=== PATIENT | female | born 1960 | race African-American/Black ===

== ENCOUNTER 2016-08-22 22:11 | Observation (INO) | payer OTHER ==
[~2016-08-22] VITALS: Ht 157.5 cm; Wt 43.0 kg
[~2016-08-22 22:11] MED LIST: ASPIRIN CHEWABL81 MG PO; ASPIRIN81 MG PO; AZO STANDARD PO; GABAPENTIN300 MG PO; HUMULIN 70/30 SC; K-TAB20 MEQ PO; KEFLEX500 MG PO; LANTUS SC; LEVEMIR FL100 UNIT/M SC; LEVEMIR1000 UNITS SC; LIPITOR20 MG PO; NEURONTIN300 MG OR; NOVOLIN 70/30 SC; NOVOLIN N1000 UNITS SC; NOVOLOG FLEXPEN SC; NOVOLOG100 IU/1 M SC; REGLAN10 MG PO; XANAX0.25 MG OR
[2016-08-22 23:04] LABS: HEMATOCRIT 35.3 % (37.0-47.0); HEMOGLOBIN 11.4 g/dl (12.0-16.0); IMMATURE GRANULOCYTES 0.2 % (0.0-1.0); MEAN CELL VOLUME 87.6 fL CALC (80.0-100.0); MEAN CORPUSCULAR HGB 28.3 pG CALC (26.0-32.0); MEAN CORPUSCULAR HGB CONC 32.3 g/L CALC (32.0-36.0); NEUT# 2.96 thou/uL (2.00-7.15); RED BLOOD COUNT 4.03 mill/uL (4.20-5.60); RED CELL DISTRI WIDTH 12.6 % (11.5-15.5)
[2016-08-22 23:05] LABS: URINE BILIRUBIN - DIPSTICK NEGATIVE (NEGATIVE); URINE BLOOD DIPSTICK NEGATIVE (NEGATIVE); URINE CLARITY CLEAR; URINE COLOR YELLOW; URINE GLUCOSE - DIPSTICK >=1000 mg/dL (NEGATIVE); URINE KETONE >=80 mg/dL (NEGATIVE); URINE LEUK ESTERASE NEGATIVE (NEGATIVE); URINE NITRITE - DIPSTICK NEGATIVE (Negative); URINE PH 5.5 (4.5-8.0); URINE PROTEIN - DIPSTICK NEGATIVE (NEG-TRACE); URINE SPECIFIC GRAVITY 1.015; URINE UROBILINOGEN - DIPSTICK 0.2 E.U./dL (0.2)
[2016-08-22 23:21] LABS: ALBUMIN 4.9 g/dL (3.2-5.0); ALKALINE PHOSPHATASE 159 u/l (38-126); BILIRUBIN, TOTAL 1.1 mg/dL (0.0-1.4); BUN 20 mg/dL (7-17); BUN/CREATININE RATIO 27 (12-20 (CALC)); CALCIUM 10.2 mg/dL (8.4-10.2); CHLORIDE 95 mmol/l (95-108); CREATININE 0.7 mg/dL (0.5-1.0); GFR > 60 ML/MIN (>=60 (CALC)); GFR FOR AFR.AMER. > 60 ML/MIN (>=60 (CALC)); SGOT/AST 62 u/l (14-36); SGPT/ALT 88 u/l (9-52); SODIUM 131 mmol/l (137-146); TOTAL PROTEIN 8.4 g/dL (6.3-8.2)
[2016-08-22 23:32] LABS: MYOGLOBIN 33 ng/mL (0 - 62)
[2016-08-22 23:37] LABS: ANION GAP 33 (6-22 (CALC)); POTASSIUM 5.6 mmol/l (3.5-5.1)
[2016-08-22 23:39] LABS: CARBON DIOXIDE 9 mmol/l (22-30)
[2016-08-22 23:40] LABS: GLUCOSE 493 mg/dL (65-105)
[2016-08-23 02:25] VITALS: BP 102/62
[2016-08-23 07:22] LABS: ANION GAP 12 (6-22 (CALC)); BUN 15 mg/dL (7-17); BUN/CREATININE RATIO 30 (12-20 (CALC)); CALCIUM 8.9 mg/dL (8.4-10.2); CARBON DIOXIDE 21 mmol/l (22-30); CHLORIDE 104 mmol/l (95-108); CREATININE 0.5 mg/dL (0.5-1.0); GFR > 60 ML/MIN (>=60 (CALC)); GFR FOR AFR.AMER. > 60 ML/MIN (>=60 (CALC)); GLUCOSE 73 mg/dL (65-105); POTASSIUM 4.1 mmol/l (3.5-5.1); SODIUM 134 mmol/l (137-146)
[2016-08-23 07:43] VITALS: BP 130/69
== END 2016-08-23 14:43 | disposition home or self-care (01) | DRG 639 ==
LOC: ENPENDDIS → ED 22:11 → ED-I 08-23 00:25 → ED 08-23 00:42 → MS2 08-23 00:43
PROVIDERS: Internal Medicine; ADMIT Internal Medicine; ATTEND Internal Medicine
DX: E13.10 Other specified diabetes mellitus with ketoacidosis without coma (principal); I10 Essential (primary) hypertension; E78.00 Pure hypercholesterolemia, unspecified; F32.9 Major depressive disorder, single episode, unspecified; M19.90 Unspecified osteoarthritis, unspecified site; Z79.4 Long term (current) use of insulin; Z91.11 Patient's noncompliance with dietary regimen
CPT/HCPCS: G0378

== ENCOUNTER 2017-01-11 11:32 | Emergency (ER) | payer OTHER ==
[~2017-01-11] VITALS: Ht 157.5 cm; Wt 42.0 kg
[2017-01-11] MEDS ORDERED: NAPROSYN500 MG PO (13:16)
[2017-01-11 13:30] VITALS: BP 113/64
== END 2017-01-11 13:53 | disposition home or self-care (01) | DRG 538 ==
LOC: ED 11:32
DX: S76.112A Strain of left quadriceps muscle, fascia and tendon, initial encounter (principal); I10 Essential (primary) hypertension; E11.9 Type 2 diabetes mellitus without complications; F32.9 Major depressive disorder, single episode, unspecified; J45.909 Unspecified asthma, uncomplicated; E78.00 Pure hypercholesterolemia, unspecified; X58.XXXA Exposure to other specified factors, initial encounter

== ENCOUNTER 2017-02-11 08:28 | Emergency (ER) | payer OTHER ==
[~2017-02-11] VITALS: Ht 157.5 cm; Wt 43.0 kg
[~2017-02-11 08:28] MED LIST changes: +NAPROSYN500 MG PO
[2017-02-11] MEDS ORDERED: OMEPRAZOLE10 MG PO (08:47)
[2017-02-11] MEDS ORDERED: REGLAN10 MG PO (08:55)
[2017-02-11] MEDS ORDERED: CYCLOBENZAPR5 MG PO (08:56)
[2017-02-11] MEDS ORDERED: LISINOPRIL2.5 MG PO (08:57)
[2017-02-11 09:41] LABS: HEMATOCRIT 30.4 % (37.0-47.0); HEMOGLOBIN 9.7 g/dl (12.0-16.0); IMMATURE GRANULOCYTES 0.4 % (0.0-1.0); MEAN CELL VOLUME 88.1 fL CALC (80.0-100.0); MEAN CORPUSCULAR HGB 28.1 pG CALC (26.0-32.0); MEAN CORPUSCULAR HGB CONC 31.9 g/L CALC (32.0-36.0); NEUT# 3.12 thou/uL (2.00-7.15); RED BLOOD COUNT 3.45 mill/uL (4.20-5.60); RED CELL DISTRI WIDTH 13.9 % (11.5-15.5)
[2017-02-11 09:55] LABS: ALKALINE PHOSPHATASE 139 u/l (38-126); ANION GAP 11 (6-22 (CALC)); BILIRUBIN, TOTAL 0.8 mg/dL (0.0-1.4); BUN 20 mg/dL (7-17); BUN/CREATININE RATIO 52 (12-20 (CALC)); CARBON DIOXIDE 31 mmol/l (22-30); CHLORIDE 98 mmol/l (95-108); CREATININE 0.4 mg/dL (0.5-1.0); GFR > 60 ML/MIN (>=60 (CALC)); GFR FOR AFR.AMER. > 60 ML/MIN (>=60 (CALC)); GLUCOSE 252 mg/dL (65-105); POTASSIUM 4.2 mmol/l (3.5-5.1); SGOT/AST 34 u/l (14-36); SGPT/ALT 27 u/l (9-52); SODIUM 135 mmol/l (137-146); TOTAL PROTEIN 7.8 g/dL (6.3-8.2)
[2017-02-11] MEDS ORDERED: ULTRAM50 M1 PO (15:41)
[2017-02-11 15:45] VITALS: BP 182/95
== END 2017-02-11 15:56 | disposition home or self-care (01) | DRG 556 ==
LOC: ED 08:28
PROVIDERS: Emergency Medicine
DX: M79.652 Pain in left thigh (principal); R22.42 Localized swelling, mass and lump, left lower limb; S90.422A Blister (nonthermal), left great toe, initial encounter

== ENCOUNTER 2017-02-26 08:39 | Inpatient (IN) | payer OTHER ==
[~2017-02-26] VITALS: Ht 157.5 cm; Wt 40.1 kg
[2017-02-26] VITALS (7 sets, daily range): BP systolic 105–151; BP diastolic 57–81
[~2017-02-26 08:39] MED LIST changes: +CYCLOBENZAPR5 MG PO; +LISINOPRIL2.5 MG PO; +OMEPRAZOLE10 MG PO; +ULTRAM50 M1 PO
[2017-02-26 09:56] LABS: HEMATOCRIT 36.4 % (37.0-47.0); HEMOGLOBIN 11.3 g/dl (12.0-16.0); IMMATURE GRANULOCYTES 0.5 % (0.0-1.0); MEAN CELL VOLUME 89.2 fL CALC (80.0-100.0); MEAN CORPUSCULAR HGB 27.7 pG CALC (26.0-32.0); NEUT# 4.9 thou/uL (2.00-7.15); RED BLOOD COUNT 4.08 mill/uL (4.20-5.60); RED CELL DISTRI WIDTH 13.5 % (11.5-15.5)
[2017-02-26 10:08] LABS: ALBUMIN 4.3 g/dL (3.2-5.0); ALKALINE PHOSPHATASE 147 u/l (38-126); ANION GAP 27 (6-22 (CALC)); BILIRUBIN, TOTAL 0.6 mg/dL (0.0-1.4); BUN 20 mg/dL (7-17); BUN/CREATININE RATIO 32 (12-20 (CALC)); CALCIUM 10.1 mg/dL (8.4-10.2); CARBON DIOXIDE 13 mmol/l (22-30); CHLORIDE 101 mmol/l (95-108); CREATININE 0.6 mg/dL (0.5-1.0); GFR > 60 ML/MIN (>=60 (CALC)); GFR FOR AFR.AMER. > 60 ML/MIN (>=60 (CALC)); GLUCOSE 357 mg/dL (65-105); POTASSIUM 4.6 mmol/l (3.5-5.1); SGOT/AST 17 u/l (14-36); SGPT/ALT 24 u/l (9-52); SODIUM 136 mmol/l (137-146); TOTAL PROTEIN 8.4 g/dL (6.3-8.2)
[2017-02-26 10:22] LABS: MYOGLOBIN 25 ng/mL (0 - 62)
[2017-02-26] MEDS ORDERED: DILTIAZEM120 MG PO (12:14)
[2017-02-26] MEDS ORDERED: LEVEMIR FL100 UNIT/M SC (12:16)
[2017-02-26] MEDS ORDERED: HUMALOG KW200 UNIT/M SC (12:18)
[2017-02-26] MEDS ORDERED: LISINOPRIL20 MG PO (12:19)
[2017-02-26] MEDS ORDERED: REGLAN10 MG PO (12:20)
[2017-02-26] MEDS ORDERED: MIRALAX3350 NF PO (12:22)
[2017-02-26 16:50] LABS: URINE BILIRUBIN - DIPSTICK NEGATIVE (NEGATIVE); URINE BLOOD DIPSTICK TRACE-INTACT (NEGATIVE); URINE COLOR YELLOW; URINE GLUCOSE - DIPSTICK >=1000 mg/dL (NEGATIVE); URINE KETONE >=80 mg/dL (NEGATIVE); URINE LEUK ESTERASE NEGATIVE (NEGATIVE); URINE NITRITE - DIPSTICK NEGATIVE (Negative); URINE PH 5.5 (4.5-8.0); URINE PROTEIN - DIPSTICK TRACE mg/dL (NEG-TRACE); URINE SPECIFIC GRAVITY 1.025; URINE UROBILINOGEN - DIPSTICK 0.2 E.U./dL (0.2)
[2017-02-26 16:53] LABS: URINE CLARITY CLEAR
[2017-02-26 16:55] LABS: BARBITURATES NEGATIVE (NEGATIVE); COCAINE NEGATIVE (NEGATIVE); METHADONE NEGATIVE (NEGATIVE); OXCYCODONE NEGATIVE (NEGATIVE); TETRAHYDROCANNABIONOL NEGATIVE (NEGATIVE); TRICYLIC ANTIDEPRESSANTS NEGATIVE (NEGATIVE)
[2017-02-26 16:59] LABS: ANION GAP 22 (6-22 (CALC)); BUN 17 mg/dL (7-17); BUN/CREATININE RATIO 37 (12-20 (CALC)); CARBON DIOXIDE 10 mmol/l (22-30); CREATININE 0.5 mg/dL (0.5-1.0); GFR > 60 ML/MIN (>=60 (CALC)); GFR FOR AFR.AMER. > 60 ML/MIN (>=60 (CALC)); GLUCOSE 200 mg/dL (65-105); POTASSIUM 4.4 mmol/l (3.5-5.1); SODIUM 139 mmol/l (137-146)
[2017-02-26 17:00] LABS: CHLORIDE 111 mmol/l (95-108)
[2017-02-26 21:01] LABS: POTASSIUM 5.1 mmol/l (3.5-5.1)
[2017-02-27] VITALS (26 sets, daily range): BP systolic 82–192; BP diastolic 40–96
[2017-02-27 00:11] LABS: POTASSIUM 3.9 mmol/l (3.5-5.1)
[2017-02-27 05:48] LABS: HEMATOCRIT 31.5 % (37.0-47.0); HEMOGLOBIN 10.1 g/dl (12.0-16.0); IMMATURE GRANULOCYTES 0.6 % (0.0-1.0); MEAN CELL VOLUME 86.8 fL CALC (80.0-100.0); MEAN CORPUSCULAR HGB 27.8 pG CALC (26.0-32.0); MEAN CORPUSCULAR HGB CONC 32.1 g/L CALC (32.0-36.0); NEUT# 6.07 thou/uL (2.00-7.15); RED BLOOD COUNT 3.63 mill/uL (4.20-5.60); RED CELL DISTRI WIDTH 13.5 % (11.5-15.5)
[2017-02-27 06:04] LABS: ANION GAP 14 (6-22 (CALC)); BUN 15 mg/dL (7-17); BUN/CREATININE RATIO 35 (12-20 (CALC)); CALCIUM 9.4 mg/dL (8.4-10.2); CARBON DIOXIDE 17 mmol/l (22-30); CHLORIDE 113 mmol/l (95-108); CREATININE 0.4 mg/dL (0.5-1.0); GFR > 60 ML/MIN (>=60 (CALC)); GFR FOR AFR.AMER. > 60 ML/MIN (>=60 (CALC)); GLUCOSE 149 mg/dL (65-105); POTASSIUM 4.1 mmol/l (3.5-5.1); SODIUM 139 mmol/l (137-146)
[2017-02-27 06:06] LABS: CHOLESTEROL HDL RATIO 2.7 (<4.4 (CALC))
[2017-02-28] VITALS (20 sets, daily range): BP systolic 121–189; BP diastolic 56–99
[2017-02-28 05:29] LABS: ANION GAP 19 (6-22 (CALC)); BUN 13 mg/dL (7-17); BUN/CREATININE RATIO 34 (12-20 (CALC)); CALCIUM 9.6 mg/dL (8.4-10.2); CARBON DIOXIDE 18 mmol/l (22-30); CHLORIDE 111 mmol/l (95-108); CREATININE 0.4 mg/dL (0.5-1.0); GFR > 60 ML/MIN (>=60 (CALC)); GFR FOR AFR.AMER. > 60 ML/MIN (>=60 (CALC)); GLUCOSE 184 mg/dL (65-105); POTASSIUM 3.6 mmol/l (3.5-5.1); SODIUM 144 mmol/l (137-146)
[2017-02-28 05:33] LABS: HEMATOCRIT 29.3 % (37.0-47.0); HEMOGLOBIN 9.5 g/dl (12.0-16.0); MEAN CELL VOLUME 84.7 fL CALC (80.0-100.0); MEAN CORPUSCULAR HGB 27.5 pG CALC (26.0-32.0); MEAN CORPUSCULAR HGB CONC 32.4 g/L CALC (32.0-36.0); RED BLOOD COUNT 3.46 mill/uL (4.20-5.60); RED CELL DISTRI WIDTH 13.5 % (11.5-15.5)
[2017-03-01 04:45] VITALS: BP 156/82
[2017-03-01 05:55] LABS: HEMATOCRIT 27.7 % (37.0-47.0); HEMOGLOBIN 9.3 g/dl (12.0-16.0); MEAN CELL VOLUME 83.2 fL CALC (80.0-100.0); MEAN CORPUSCULAR HGB 27.9 pG CALC (26.0-32.0); RED BLOOD COUNT 3.33 mill/uL (4.20-5.60)
[2017-03-01 05:56] LABS: MEAN CORPUSCULAR HGB CONC 33.6 g/L CALC (32.0-36.0); RED CELL DISTRI WIDTH 13.2 % (11.5-15.5)
[2017-03-01 06:07] LABS: ANION GAP 12 (6-22 (CALC)); BUN 11 mg/dL (7-17); BUN/CREATININE RATIO 28 (12-20 (CALC)); CARBON DIOXIDE 22 mmol/l (22-30); CHLORIDE 96 mmol/l (95-108); CREATININE 0.4 mg/dL (0.5-1.0); GFR > 60 ML/MIN (>=60 (CALC)); GFR FOR AFR.AMER. > 60 ML/MIN (>=60 (CALC)); GLUCOSE 209 mg/dL (65-105); MAGNESIUM 1.6 mg/dL (1.6-2.3); POTASSIUM 3.1 mmol/l (3.5-5.1)
[2017-03-01 06:20] LABS: SODIUM 127 mmol/l (137-146)
[2017-03-01 07:51] VITALS: BP 152/83
[2017-03-01 11:20] VITALS: BP 100/63
[2017-03-01 12:31] LABS: ALBUMIN 2.8 g/dL (3.2-5.0); ALKALINE PHOSPHATASE 95 u/l (38-126); ANION GAP 13 (6-22 (CALC)); BILIRUBIN, TOTAL 0.7 mg/dL (0.0-1.4); BUN 8 mg/dL (7-17); BUN/CREATININE RATIO 23 (12-20 (CALC)); CARBON DIOXIDE 24 mmol/l (22-30); CHLORIDE 99 mmol/l (95-108); CREATININE 0.4 mg/dL (0.5-1.0); GFR > 60 ML/MIN (>=60 (CALC)); GFR FOR AFR.AMER. > 60 ML/MIN (>=60 (CALC)); GLUCOSE 210 mg/dL (65-105); POTASSIUM 2.9 mmol/l (3.5-5.1); SGOT/AST 23 u/l (14-36); SGPT/ALT 24 u/l (9-52); SODIUM 132 mmol/l (137-146); TOTAL PROTEIN 6.1 g/dL (6.3-8.2)
[2017-03-01 15:50] VITALS: BP 141/71
[2017-03-01 19:25] VITALS: BP 127/62
[2017-03-01 23:55] VITALS: BP 128/67
[2017-03-02 04:24] VITALS: BP 154/88
[2017-03-02 08:13] VITALS: BP 158/91
[2017-03-02 10:50] LABS: ANION GAP 14 (6-22 (CALC)); BUN 5 mg/dL (7-17); BUN/CREATININE RATIO 14 (12-20 (CALC)); CALCIUM 9.2 mg/dL (8.4-10.2); CARBON DIOXIDE 25 mmol/l (22-30); CHLORIDE 94 mmol/l (95-108); CREATININE 0.4 mg/dL (0.5-1.0); GFR > 60 ML/MIN (>=60 (CALC)); GFR FOR AFR.AMER. > 60 ML/MIN (>=60 (CALC)); GLUCOSE 211 mg/dL (65-105); MAGNESIUM 1.7 mg/dL (1.6-2.3); POTASSIUM 3.2 mmol/l (3.5-5.1); SODIUM 130 mmol/l (137-146)
[2017-03-02 12:40] VITALS: BP 125/55
== END 2017-03-02 14:57 | disposition home or self-care (01) | DRG 638 ==
LOC: ED 08:39 → ED-I 16:22 → ED 17:34 → ICU 17:35 → MS2 02-28 16:01
PROVIDERS: Emergency Medicine; Internal Medicine; Nurse Practitioner Family; ADMIT Internal Medicine; ATTEND Internal Medicine
DX: E11.10 Type 2 diabetes mellitus with ketoacidosis without coma (principal); Z68.1 Body mass index [BMI] 19.9 or less, adult; R64 Cachexia; E87.8 Other disorders of electrolyte and fluid balance, not elsewhere classified; K56.7 Ileus, unspecified; K31.84 Gastroparesis; I10 Essential (primary) hypertension; E11.43 Type 2 diabetes mellitus with diabetic autonomic (poly)neuropathy; K59.00 Constipation, unspecified; Z79.4 Long term (current) use of insulin

== ENCOUNTER 2017-04-12 11:32 | Inpatient (IN) | payer OTHER ==
[~2017-04-12] VITALS: Ht 157.5 cm; Wt 29.5 kg
[2017-04-12] VITALS (8 sets, daily range): BP systolic 107–133; BP diastolic 53–67
[~2017-04-12 11:32] MED LIST changes: +DILTIAZEM120 MG PO; +HUMALOG KW200 UNIT/M SC; +LISINOPRIL20 MG PO; +MIRALAX3350 NF PO
[2017-04-12 12:25] LABS: HEMATOCRIT 40.2 % (37.0-47.0); HEMOGLOBIN 11.8 g/dl (12.0-16.0); IMMATURE GRANULOCYTES 2.4 % (0.0-1.0); MEAN CELL VOLUME 95.7 fL CALC (80.0-100.0); MEAN CORPUSCULAR HGB 28.1 pG CALC (26.0-32.0); MEAN CORPUSCULAR HGB CONC 29.4 g/L CALC (32.0-36.0); NEUT# 7.37 thou/uL (2.00-7.15); RED BLOOD COUNT 4.2 mill/uL (4.20-5.60); RED CELL DISTRI WIDTH 14.7 % (11.5-15.5)
[2017-04-12 12:33] LABS: URINE BILIRUBIN - DIPSTICK NEGATIVE (NEGATIVE); URINE BLOOD DIPSTICK TRACE-INTACT (NEGATIVE); URINE COLOR YELLOW; URINE GLUCOSE - DIPSTICK >=1000 mg/dL (NEGATIVE); URINE KETONE >=80 mg/dL (NEGATIVE); URINE LEUK ESTERASE NEGATIVE (NEGATIVE); URINE NITRITE - DIPSTICK NEGATIVE (Negative); URINE PH 5.5 (4.5-8.0); URINE PROTEIN - DIPSTICK TRACE mg/dL (NEG-TRACE); URINE SPECIFIC GRAVITY 1.025; URINE UROBILINOGEN - DIPSTICK 0.2 E.U./dL (0.2)
[2017-04-12 12:36] LABS: URINE CLARITY CLEAR
[2017-04-12 12:40] LABS: ALBUMIN 4.6 g/dL (3.2-5.0); ALKALINE PHOSPHATASE 178 u/l (38-126); BILIRUBIN, TOTAL 0.5 mg/dL (0.0-1.4); BUN 23 mg/dL (7-17); BUN/CREATININE RATIO 33 (12-20 (CALC)); CALCIUM 9.9 mg/dL (8.4-10.2); CHLORIDE 108 mmol/l (95-108); CREATININE 0.7 mg/dL (0.5-1.0); GFR > 60 ML/MIN (>=60 (CALC)); GFR FOR AFR.AMER. > 60 ML/MIN (>=60 (CALC)); SGOT/AST 55 u/l (14-36); SGPT/ALT 89 u/l (9-52); SODIUM 139 mmol/l (137-146)
[2017-04-12 12:43] LABS: ANION GAP 31 (6-22 (CALC)); POTASSIUM 5.4 mmol/l (3.5-5.1)
[2017-04-12 12:44] LABS: CARBON DIOXIDE 5 mmol/l (22-30); GLUCOSE 572 mg/dL (65-105)
[2017-04-12 12:54] LABS: MYOGLOBIN 24 ng/mL (0 - 62)
[2017-04-12 12:55] LABS: INFLUENZA A NONE DETECTED (NONE DETECT); INFLUENZA B NONE DETECTED (NONE DETECT)
[2017-04-12 14:47] LABS: BUN 23 mg/dL (7-17); BUN/CREATININE RATIO 35 (12-20 (CALC)); CALCIUM 8.8 mg/dL (8.4-10.2); CHLORIDE 114 mmol/l (95-108); CREATININE 0.7 mg/dL (0.5-1.0); GFR > 60 ML/MIN (>=60 (CALC)); GFR FOR AFR.AMER. > 60 ML/MIN (>=60 (CALC)); GLUCOSE 447 mg/dL (65-105); POTASSIUM 4.3 mmol/l (3.5-5.1); SODIUM 142 mmol/l (137-146)
[2017-04-12 14:53] LABS: ANION GAP 27 (6-22 (CALC)); CARBON DIOXIDE < 5 mmol/l (22-30)
[2017-04-12 16:33] LABS: BUN 21 mg/dL (7-17); BUN/CREATININE RATIO 32 (12-20 (CALC)); CALCIUM 8.5 mg/dL (8.4-10.2); CHLORIDE 117 mmol/l (95-108); CREATININE 0.7 mg/dL (0.5-1.0); GFR > 60 ML/MIN (>=60 (CALC)); GFR FOR AFR.AMER. > 60 ML/MIN (>=60 (CALC)); GLUCOSE 284 mg/dL (65-105); POTASSIUM 3.8 mmol/l (3.5-5.1); SODIUM 145 mmol/l (137-146)
[2017-04-12 16:36] LABS: ANION GAP 27 (6-22 (CALC))
[2017-04-12 16:37] LABS: CARBON DIOXIDE < 5 mmol/l (22-30)
[2017-04-12 18:44] LABS: BUN 18 mg/dL (7-17); BUN/CREATININE RATIO 30 (12-20 (CALC)); CALCIUM 8.1 mg/dL (8.4-10.2); CHLORIDE 121 mmol/l (95-108); CREATININE 0.6 mg/dL (0.5-1.0); GFR > 60 ML/MIN (>=60 (CALC)); GFR FOR AFR.AMER. > 60 ML/MIN (>=60 (CALC)); GLUCOSE 174 mg/dL (65-105); SODIUM 144 mmol/l (137-146)
[2017-04-12 18:54] LABS: ANION GAP 22 (6-22 (CALC)); CARBON DIOXIDE < 5 mmol/l (22-30)
[2017-04-12 20:46] LABS: ANION GAP 18 (6-22 (CALC)); BUN 16 mg/dL (7-17); BUN/CREATININE RATIO 31 (12-20 (CALC)); CALCIUM 7.8 mg/dL (8.4-10.2); CARBON DIOXIDE 10 mmol/l (22-30); CHLORIDE 122 mmol/l (95-108); CREATININE 0.5 mg/dL (0.5-1.0); GFR > 60 ML/MIN (>=60 (CALC)); GFR FOR AFR.AMER. > 60 ML/MIN (>=60 (CALC)); GLUCOSE 110 mg/dL (65-105); POTASSIUM 3.9 mmol/l (3.5-5.1); SODIUM 146 mmol/l (137-146)
[2017-04-13] VITALS (16 sets, daily range): BP systolic 95–141; BP diastolic 51–76
[2017-04-13 08:28] LABS: HEMATOCRIT 30.5 % (37.0-47.0); HEMOGLOBIN 10.1 g/dl (12.0-16.0); IMMATURE GRANULOCYTES 0.3 % (0.0-1.0); MEAN CELL VOLUME 86.4 fL CALC (80.0-100.0); MEAN CORPUSCULAR HGB 28.6 pG CALC (26.0-32.0); MEAN CORPUSCULAR HGB CONC 33.1 g/L CALC (32.0-36.0); NEUT# 7.51 thou/uL (2.00-7.15); RED BLOOD COUNT 3.53 mill/uL (4.20-5.60); RED CELL DISTRI WIDTH 14.6 % (11.5-15.5)
[2017-04-13 08:41] LABS: ANION GAP 10 (6-22 (CALC)); BUN 11 mg/dL (7-17); BUN/CREATININE RATIO 26 (12-20 (CALC)); CALCIUM 7.8 mg/dL (8.4-10.2); CARBON DIOXIDE 19 mmol/l (22-30); CHLORIDE 121 mmol/l (95-108); CREATININE 0.4 mg/dL (0.5-1.0); GFR > 60 ML/MIN (>=60 (CALC)); GFR FOR AFR.AMER. > 60 ML/MIN (>=60 (CALC)); GLUCOSE 180 mg/dL (65-105); POTASSIUM 3.5 mmol/l (3.5-5.1); SODIUM 146 mmol/l (137-146)
[2017-04-13 18:59] LABS: ANION GAP 12 (6-22 (CALC)); BUN 10 mg/dL (7-17); BUN/CREATININE RATIO 23 (12-20 (CALC)); CALCIUM 8.8 mg/dL (8.4-10.2); CARBON DIOXIDE 19 mmol/l (22-30); CHLORIDE 118 mmol/l (95-108); CREATININE 0.4 mg/dL (0.5-1.0); GFR > 60 ML/MIN (>=60 (CALC)); GFR FOR AFR.AMER. > 60 ML/MIN (>=60 (CALC)); GLUCOSE 110 mg/dL (65-105); POTASSIUM 3.3 mmol/l (3.5-5.1); SODIUM 145 mmol/l (137-146)
[2017-04-14] VITALS: BP 168/83
[2017-04-14 04:00] VITALS: BP 164/84
[2017-04-14 08:25] VITALS: BP 167/85
[2017-04-14 08:38] VITALS: BP 169/59
[2017-04-14 09:14] VITALS: BP 167/85
[2017-04-14] MEDS ORDERED: ZOFRAN ODT4 MG PO (10:05)
[2017-04-14] MEDS ORDERED: ZOFRAN4 MG/TAB PO (23:46)
[2017-04-14] MEDS ORDERED: MICRO-K10 MEQ PO (23:46)
[2017-04-14] MEDS ORDERED: KEFLEX250 MG PO (23:46)
== END 2017-04-14 11:18 | disposition home or self-care (01) | DRG 639 ==
LOC: ED 11:32 → ED-I 13:20 → ED 13:43 → ICU 13:44 → MS2 04-13 13:33
PROVIDERS: Emergency Medicine; ADMIT Internal Medicine; ATTEND Internal Medicine
DX: E11.10 Type 2 diabetes mellitus with ketoacidosis without coma (principal); F32.9 Major depressive disorder, single episode, unspecified; I10 Essential (primary) hypertension; M19.90 Unspecified osteoarthritis, unspecified site; Z79.4 Long term (current) use of insulin; Z91.14 Patient's other noncompliance with medication regimen
CPT/HCPCS: J1650; S0164

== ENCOUNTER 2017-04-14 18:53 | Emergency (ER) | payer OTHER ==
[~2017-04-14] VITALS: Ht 157.5 cm; Wt 40.5 kg
[~2017-04-14 18:53] MED LIST changes: +ZOFRAN ODT4 MG PO
[2017-04-14 20:29] LABS: URINE BILIRUBIN - DIPSTICK NEGATIVE (NEGATIVE); URINE BLOOD DIPSTICK TRACE-INTACT (NEGATIVE); URINE COLOR YELLOW; URINE GLUCOSE - DIPSTICK >=1000 mg/dL (NEGATIVE); URINE KETONE >=80 mg/dL (NEGATIVE); URINE LEUK ESTERASE NEGATIVE (NEGATIVE); URINE PH 5.5 (4.5-8.0); URINE PROTEIN - DIPSTICK NEGATIVE (NEG-TRACE); URINE UROBILINOGEN - DIPSTICK 0.2 E.U./dL (0.2)
[2017-04-14 20:34] LABS: URINE CLARITY CLOUDY; URINE NITRITE - DIPSTICK POSITIVE (Negative)
[2017-04-14 20:36] LABS: URINE SQUAMOUS EPITHELIAL CELL FEW EPI/hpf (0-FEW); URINE WBC 0-2 WBC/hpf (0-5); URINE YEAST MANY hpf
[2017-04-14 21:32] LABS: HEMATOCRIT 36.9 % (37.0-47.0); HEMOGLOBIN 12.1 g/dl (12.0-16.0); IMMATURE GRANULOCYTES 0.2 % (0.0-1.0); MEAN CORPUSCULAR HGB 27.9 pG CALC (26.0-32.0); MEAN CORPUSCULAR HGB CONC 32.8 g/L CALC (32.0-36.0); NEUT# 4.22 thou/uL (2.00-7.15); RED BLOOD COUNT 4.34 mill/uL (4.20-5.60); RED CELL DISTRI WIDTH 14.6 % (11.5-15.5)
[2017-04-14 21:51] LABS: ALBUMIN 3.9 g/dL (3.2-5.0); ALKALINE PHOSPHATASE 131 u/l (38-126); ANION GAP 20 (6-22 (CALC)); BILIRUBIN, TOTAL 1.3 mg/dL (0.0-1.4); BUN 10 mg/dL (7-17); BUN/CREATININE RATIO 21 (12-20 (CALC)); CALCIUM 8.8 mg/dL (8.4-10.2); CARBON DIOXIDE 19 mmol/l (22-30); CHLORIDE 102 mmol/l (95-108); CREATININE 0.5 mg/dL (0.5-1.0); GFR > 60 ML/MIN (>=60 (CALC)); GFR FOR AFR.AMER. > 60 ML/MIN (>=60 (CALC)); GLUCOSE 279 mg/dL (65-105); POTASSIUM 2.9 mmol/l (3.5-5.1); SGOT/AST 38 u/l (14-36); SGPT/ALT 58 u/l (9-52); SODIUM 138 mmol/l (137-146); TOTAL PROTEIN 6.9 g/dL (6.3-8.2)
[2017-04-14] MEDS ORDERED: MICRO-K10 MEQ PO (23:46)
[2017-04-14] MEDS ORDERED: ZOFRAN4 MG/TAB PO (23:46)
[2017-04-14] MEDS ORDERED: KEFLEX250 MG PO (23:46)
[2017-04-15 00:36] VITALS: BP 154/87
== END 2017-04-15 00:37 | disposition home or self-care (01) | DRG 392 ==
LOC: ED 18:53
PROVIDERS: Emergency Medicine
DX: R11.0 Nausea (principal); E11.9 Type 2 diabetes mellitus without complications; N39.0 Urinary tract infection, site not specified; E87.6 Hypokalemia; R10.9 Unspecified abdominal pain; F32.9 Major depressive disorder, single episode, unspecified; M19.90 Unspecified osteoarthritis, unspecified site; I10 Essential (primary) hypertension; Z79.4 Long term (current) use of insulin; Z91.14 Patient's other noncompliance with medication regimen

== ENCOUNTER 2017-04-18 12:27 | Inpatient (IN) | payer OTHER ==
[2017-04-18] VITALS (10 sets, daily range): BP systolic 80–145; BP diastolic 47–81
[~2017-04-18] VITALS: Ht 157.5 cm; Wt 42.5 kg
[~2017-04-18 12:27] MED LIST changes: +KEFLEX250 MG PO; +MICRO-K10 MEQ PO; +ZOFRAN4 MG/TAB PO
[2017-04-18 13:19] LABS: HEMATOCRIT 34.8 % (37.0-47.0); HEMOGLOBIN 10.9 g/dl (12.0-16.0); IMMATURE GRANULOCYTES 0.9 % (0.0-1.0); MEAN CELL VOLUME 89.9 fL CALC (80.0-100.0); MEAN CORPUSCULAR HGB 28.2 pG CALC (26.0-32.0); MEAN CORPUSCULAR HGB CONC 31.3 g/L CALC (32.0-36.0); NEUT# 7.75 thou/uL (2.00-7.15); RED BLOOD COUNT 3.87 mill/uL (4.20-5.60); RED CELL DISTRI WIDTH 14.6 % (11.5-15.5)
[2017-04-18 13:21] LABS: ALBUMIN 3.5 g/dL (3.2-5.0); ALKALINE PHOSPHATASE 102 u/l (38-126); BILIRUBIN, TOTAL 1.2 mg/dL (0.0-1.4); BUN 15 mg/dL (7-17); BUN/CREATININE RATIO 19 (12-20 (CALC)); CHLORIDE 105 mmol/l (95-108); CREATININE 0.8 mg/dL (0.5-1.0); GFR > 60 ML/MIN (>=60 (CALC)); GFR FOR AFR.AMER. > 60 ML/MIN (>=60 (CALC)); GLUCOSE 388 mg/dL (65-105); SGOT/AST 54 u/l (14-36); SGPT/ALT 32 u/l (9-52); SODIUM 131 mmol/l (137-146); TOTAL PROTEIN 6.2 g/dL (6.3-8.2)
[2017-04-18 13:31] LABS: ANION GAP 27 (6-22 (CALC)); CARBON DIOXIDE < 5 mmol/l (22-30); POTASSIUM 6.2 mmol/l (3.5-5.1)
[2017-04-18 13:32] LABS: MYOGLOBIN 31 ng/mL (0 - 62)
[2017-04-18 16:19] LABS: POTASSIUM 3.8 mmol/l (3.5-5.1)
[2017-04-18] MEDS ORDERED: LEVEMIR100 UNIT/M SC (16:29)
[2017-04-18] MEDS ORDERED: NOVOLOG100 UNIT/M (16:30)
[2017-04-18] MEDS ORDERED: LISINOPRIL20 MG PO (16:30)
[2017-04-18] MEDS ORDERED: POTASSIUM CHLO10 MEQ PO (16:31)
[2017-04-18] MEDS ORDERED: ASPIRIN81 MG PO (16:31)
[2017-04-18] MEDS ORDERED: PRILOSEC20 MG PO (16:33)
[2017-04-18 20:16] LABS: POTASSIUM 3.7 mmol/l (3.5-5.1)
[2017-04-18 23:34] LABS: POTASSIUM 3.1 mmol/l (3.5-5.1)
[2017-04-19] VITALS (18 sets, daily range): BP systolic 99–187; BP diastolic 52–95
[2017-04-19 04:46] LABS: HEMATOCRIT 27.1 % (37.0-47.0); HEMOGLOBIN 9.4 g/dl (12.0-16.0); MEAN CELL VOLUME 82.4 fL CALC (80.0-100.0); MEAN CORPUSCULAR HGB 28.6 pG CALC (26.0-32.0); MEAN CORPUSCULAR HGB CONC 34.7 g/L CALC (32.0-36.0); RED BLOOD COUNT 3.29 mill/uL (4.20-5.60); RED CELL DISTRI WIDTH 13.6 % (11.5-15.5)
[2017-04-19 05:07] LABS: ANION GAP 16 (6-22 (CALC)); BUN 14 mg/dL (7-17); BUN/CREATININE RATIO 28 (12-20 (CALC)); CALCIUM 8.5 mg/dL (8.4-10.2); CARBON DIOXIDE 17 mmol/l (22-30); CHLORIDE 112 mmol/l (95-108); CREATININE 0.5 mg/dL (0.5-1.0); GFR > 60 ML/MIN (>=60 (CALC)); GFR FOR AFR.AMER. > 60 ML/MIN (>=60 (CALC)); GLUCOSE 127 mg/dL (65-105); POTASSIUM 3.6 mmol/l (3.5-5.1); SODIUM 141 mmol/l (137-146)
[2017-04-20] VITALS: BP 102/56
[2017-04-20 04:45] VITALS: BP 119/73
[2017-04-20 05:48] LABS: BARBITURATES NEGATIVE (NEGATIVE); COCAINE NEGATIVE (NEGATIVE); METHADONE NEGATIVE (NEGATIVE); OXCYCODONE NEGATIVE (NEGATIVE); TETRAHYDROCANNABIONOL NEGATIVE (NEGATIVE); TRICYLIC ANTIDEPRESSANTS NEGATIVE (NEGATIVE)
[2017-04-20 08:40] VITALS: BP 143/80
[2017-04-20 10:14] LABS: HEMATOCRIT 29.8 % (37.0-47.0); IMMATURE GRANULOCYTES 0.2 % (0.0-1.0); MEAN CELL VOLUME 83.7 fL CALC (80.0-100.0); MEAN CORPUSCULAR HGB 28.1 pG CALC (26.0-32.0); MEAN CORPUSCULAR HGB CONC 33.6 g/L CALC (32.0-36.0); NEUT# 2.7 thou/uL (2.00-7.15); RED BLOOD COUNT 3.56 mill/uL (4.20-5.60); RED CELL DISTRI WIDTH 14.3 % (11.5-15.5)
[2017-04-20 10:37] LABS: ANION GAP 9 (6-22 (CALC)); BUN 13 mg/dL (7-17); BUN/CREATININE RATIO 31 (12-20 (CALC)); CARBON DIOXIDE 23 mmol/l (22-30); CHLORIDE 104 mmol/l (95-108); CREATININE 0.4 mg/dL (0.5-1.0); GFR > 60 ML/MIN (>=60 (CALC)); GFR FOR AFR.AMER. > 60 ML/MIN (>=60 (CALC)); GLUCOSE 215 mg/dL (65-105); POTASSIUM 3.7 mmol/l (3.5-5.1); SODIUM 132 mmol/l (137-146)
== END 2017-04-20 14:50 | disposition home or self-care (01) | DRG 638 ==
LOC: ED 12:27 → ED-I 13:14 → ED 14:37 → ICU 14:38 → MS2 04-19 18:35
PROVIDERS: Emergency Medicine; Internal Medicine; ADMIT Internal Medicine; ATTEND Internal Medicine
DX: E11.10 Type 2 diabetes mellitus with ketoacidosis without coma (principal); E87.4 Mixed disorder of acid-base balance; E78.5 Hyperlipidemia, unspecified; E86.0 Dehydration; I10 Essential (primary) hypertension; Z91.14 Patient's other noncompliance with medication regimen; M19.90 Unspecified osteoarthritis, unspecified site; F99 Mental disorder, not otherwise specified; E11.40 Type 2 diabetes mellitus with diabetic neuropathy, unspecified; Z79.4 Long term (current) use of insulin

== ENCOUNTER 2017-10-15 11:02 | Inpatient (IN) | payer OTHER ==
[2017-10-15] VITALS (12 sets, daily range): BP systolic 92–131; BP diastolic 53–64
[~2017-10-15] VITALS: Ht 157.5 cm; Wt 41.0 kg
[~2017-10-15 11:02] MED LIST changes: +LEVEMIR100 UNIT/M SC; +NOVOLOG100 UNIT/M; +POTASSIUM CHLO10 MEQ PO; +PRILOSEC20 MG PO
[2017-10-15 11:33] LABS: HEMATOCRIT 39.8 % (37.0-47.0); HEMOGLOBIN 12.5 g/dl (12.0-16.0); IMMATURE GRANULOCYTES 0.3 % (0.0-1.0); MEAN CELL VOLUME 94.3 fL CALC (80.0-100.0); MEAN CORPUSCULAR HGB 29.6 pG CALC (26.0-32.0); MEAN CORPUSCULAR HGB CONC 31.4 g/L CALC (32.0-36.0); NEUT# 4.34 thou/uL (2.00-7.15); RED BLOOD COUNT 4.22 mill/uL (4.20-5.60); RED CELL DISTRI WIDTH 13.1 % (11.5-15.5)
[2017-10-15 11:52] LABS: BILIRUBIN, TOTAL 0.5 mg/dL (0.0-1.4); BUN 21 mg/dL (7-17); BUN/CREATININE RATIO 32 (12-20 (CALC)); CHLORIDE 99 mmol/l (95-108); CREATININE 0.7 mg/dL (0.5-1.0); GFR > 60 ML/MIN (>=60 (CALC)); GFR FOR AFR.AMER. > 60 ML/MIN (>=60 (CALC)); SGPT/ALT 114 u/l (9-52); SODIUM 130 mmol/l (137-146)
[2017-10-15 11:59] LABS: POTASSIUM 5.3 mmol/l (3.5-5.1)
[2017-10-15 12:00] LABS: ALBUMIN 4.7 g/dL (3.2-5.0); ANION GAP 31 (6-22 (CALC)); CARBON DIOXIDE < 5 mmol/l (22-30); ETHYL ALCOHOL 0 mg/dl (0-30); SGOT/AST 136 u/l (14-36); TOTAL PROTEIN 8.6 g/dL (6.3-8.2)
[2017-10-15 12:01] LABS: ALKALINE PHOSPHATASE 274 u/l (38-126)
[2017-10-15 12:23] LABS: URINE BILIRUBIN - DIPSTICK NEGATIVE (NEGATIVE); URINE BLOOD DIPSTICK TRACE-LYSED (NEGATIVE); URINE COLOR YELLOW; URINE GLUCOSE - DIPSTICK >=1000 mg/dL (NEGATIVE); URINE KETONE >=80 mg/dL (NEGATIVE); URINE LEUK ESTERASE NEGATIVE (NEGATIVE); URINE NITRITE - DIPSTICK NEGATIVE (Negative); URINE PH 5.5 (4.5-8.0); URINE PROTEIN - DIPSTICK TRACE mg/dL (NEG-TRACE); URINE UROBILINOGEN - DIPSTICK 0.2 E.U./dL (0.2)
[2017-10-15 12:29] LABS: URINE CLARITY SL CLOUDY
[2017-10-15 12:31] LABS: BARBITURATES NEGATIVE (NEGATIVE); COCAINE NEGATIVE (NEGATIVE); METHADONE NEGATIVE (NEGATIVE); OXCYCODONE NEGATIVE (NEGATIVE); TETRAHYDROCANNABIONOL NEGATIVE (NEGATIVE); TRICYLIC ANTIDEPRESSANTS NEGATIVE (NEGATIVE)
[2017-10-15 12:36] LABS: INTERNATIONAL NORMALIZED RATIO 0.9 RATIO (0.7-1.3)
[2017-10-15 17:53] LABS: BUN 19 mg/dL (7-17); BUN/CREATININE RATIO 42 (12-20 (CALC)); CHLORIDE 110 mmol/l (95-108); CREATININE 0.4 mg/dL (0.5-1.0); GFR > 60 ML/MIN (>=60 (CALC)); GFR FOR AFR.AMER. > 60 ML/MIN (>=60 (CALC)); SODIUM 136 mmol/l (137-146)
[2017-10-15 17:56] LABS: ANION GAP 16 (6-22 (CALC)); CARBON DIOXIDE 14 mmol/l (22-30); POTASSIUM 4.1 mmol/l (3.5-5.1)
[2017-10-15 21:41] LABS: ANION GAP 13 (6-22 (CALC)); BUN 17 mg/dL (7-17); BUN/CREATININE RATIO 34 (12-20 (CALC)); CARBON DIOXIDE 16 mmol/l (22-30); CHLORIDE 110 mmol/l (95-108); CREATININE 0.5 mg/dL (0.5-1.0); GFR > 60 ML/MIN (>=60 (CALC)); GFR FOR AFR.AMER. > 60 ML/MIN (>=60 (CALC)); POTASSIUM 4.2 mmol/l (3.5-5.1); SODIUM 135 mmol/l (137-146)
[2017-10-16] VITALS (13 sets, daily range): BP systolic 96–176; BP diastolic 52–94
[2017-10-16 05:37] LABS: BUN 17 mg/dL (7-17); CARBON DIOXIDE 18 mmol/l (22-30); CHLORIDE 110 mmol/l (95-108); CREATININE 0.4 mg/dL (0.5-1.0); GFR > 60 ML/MIN (>=60 (CALC)); GFR FOR AFR.AMER. > 60 ML/MIN (>=60 (CALC)); HEMOGLOBIN 10.8 g/dl (12.0-16.0); MAGNESIUM 2.1 mg/dL (1.6-2.3); MEAN CORPUSCULAR HGB 29.3 pG CALC (26.0-32.0); MEAN CORPUSCULAR HGB CONC 33.1 g/L CALC (32.0-36.0); PLATELET COUNT 221 thou/uL (130-400); POTASSIUM 3.8 mmol/l (3.5-5.1); RED BLOOD COUNT 3.68 mill/uL (4.20-5.60); RED CELL DISTRI WIDTH 12.4 % (11.5-15.5); SODIUM 135 mmol/l (137-146)
[2017-10-16 05:41] LABS: HEMATOCRIT 32.6 % (37.0-47.0); MEAN CELL VOLUME 88.6 fL CALC (80.0-100.0)
[2017-10-16 05:43] LABS: ALBUMIN 3.3 g/dL (3.2-5.0)
[2017-10-17] VITALS (12 sets, daily range): BP systolic 112–177; BP diastolic 72–97
[2017-10-17 05:16] LABS: ALBUMIN 2.8 g/dL (3.2-5.0); BUN 13 mg/dL (7-17); CREATININE 0.4 mg/dL (0.5-1.0); GFR > 60 ML/MIN (>=60 (CALC)); GFR FOR AFR.AMER. > 60 ML/MIN (>=60 (CALC)); POTASSIUM 4.1 mmol/l (3.5-5.1); SODIUM 132 mmol/l (137-146)
[2017-10-17 05:19] LABS: CARBON DIOXIDE 24 mmol/l (22-30)
[2017-10-17 05:20] LABS: CHLORIDE 105 mmol/l (95-108)
[2017-10-18] VITALS (12 sets, daily range): BP systolic 121–170; BP diastolic 72–91
[2017-10-18 06:16] LABS: HEMOGLOBIN 11.9 g/dl (12.0-16.0); MEAN CELL VOLUME 89.6 fL CALC (80.0-100.0); MEAN CORPUSCULAR HGB 29.6 pG CALC (26.0-32.0); MEAN CORPUSCULAR HGB CONC 33.1 g/L CALC (32.0-36.0); RED BLOOD COUNT 4.02 mill/uL (4.20-5.60); RED CELL DISTRI WIDTH 12.7 % (11.5-15.5)
[2017-10-18 06:25] LABS: BUN 13 mg/dL (7-17); CHLORIDE 101 mmol/l (95-108); CREATININE 0.4 mg/dL (0.5-1.0); GFR > 60 ML/MIN (>=60 (CALC)); GFR FOR AFR.AMER. > 60 ML/MIN (>=60 (CALC)); MAGNESIUM 1.9 mg/dL (1.6-2.3); SODIUM 134 mmol/l (137-146)
[2017-10-18 06:26] LABS: CARBON DIOXIDE 16 mmol/l (22-30)
[2017-10-18 06:27] LABS: ALBUMIN 3.6 g/dL (3.2-5.0)
[2017-10-18 09:23] LABS: URINE BILIRUBIN - DIPSTICK NEGATIVE (NEGATIVE); URINE BLOOD DIPSTICK TRACE-INTACT (NEGATIVE); URINE COLOR YELLOW; URINE GLUCOSE - DIPSTICK >=1000 mg/dL (NEGATIVE); URINE KETONE >=80 mg/dL (NEGATIVE); URINE LEUK ESTERASE SMALL (NEGATIVE); URINE NITRITE - DIPSTICK NEGATIVE (Negative); URINE PROTEIN - DIPSTICK TRACE mg/dL (NEG-TRACE); URINE UROBILINOGEN - DIPSTICK 0.2 E.U./dL (0.2)
[2017-10-18 09:24] LABS: URINE AMORPH SEDIMENT MANY hpf (NONE-FEW); URINE BACTERIA FEW hpf; URINE CLARITY CLOUDY; URINE EPITHELIAL CELLS MODERATE EPI/hpf (0-FEW)
[2017-10-19] VITALS (8 sets, daily range): BP systolic 142–169; BP diastolic 77–93
[2017-10-19 04:43] LABS: ALBUMIN 3.4 g/dL (3.2-5.0); BUN 16 mg/dL (7-17); CARBON DIOXIDE 13 mmol/l (22-30); CHLORIDE 103 mmol/l (95-108); CREATININE 0.4 mg/dL (0.5-1.0); GFR > 60 ML/MIN (>=60 (CALC)); GFR FOR AFR.AMER. > 60 ML/MIN (>=60 (CALC)); SODIUM 133 mmol/l (137-146)
[2017-10-19 05:20] LABS: HEMATOCRIT 35.8 % (37.0-47.0); HEMOGLOBIN 11.8 g/dl (12.0-16.0); MEAN CELL VOLUME 90.2 fL CALC (80.0-100.0); MEAN CORPUSCULAR HGB 29.7 pG CALC (26.0-32.0); RED BLOOD COUNT 3.97 mill/uL (4.20-5.60); RED CELL DISTRI WIDTH 12.8 % (11.5-15.5)
[2017-10-19] MEDS ORDERED: SODIUM BICARBI650 MG PO (12:04)
[2017-10-19] MEDS ORDERED: KEFLEX500 MG PO (12:05)
[2017-10-19 12:54] LABS: POTASSIUM 3.4 mmol/l (3.5-5.1)
== END 2017-10-19 15:00 | disposition home or self-care (01) | DRG 638 ==
LOC: ED 11:02 → ED-I 12:07 → ED 13:49 → ICU 13:50
PROVIDERS: Emergency Medicine; Internal Medicine Nephrology; ADMIT Internal Medicine; ATTEND Internal Medicine
DX: E11.10 Type 2 diabetes mellitus with ketoacidosis without coma (principal); R64 Cachexia; Z68.1 Body mass index [BMI] 19.9 or less, adult; E87.1 Hypo-osmolality and hyponatremia; N39.0 Urinary tract infection, site not specified; E11.42 Type 2 diabetes mellitus with diabetic polyneuropathy; E11.43 Type 2 diabetes mellitus with diabetic autonomic (poly)neuropathy; K31.84 Gastroparesis; E87.5 Hyperkalemia; K21.9 Gastro-esophageal reflux disease without esophagitis; R63.0 Anorexia; E83.39 Other disorders of phosphorus metabolism; E87.8 Other disorders of electrolyte and fluid balance, not elsewhere classified; R68.0 Hypothermia, not associated with low environmental temperature; I10 Essential (primary) hypertension; E78.5 Hyperlipidemia, unspecified; D64.9 Anemia, unspecified; F32.9 Major depressive disorder, single episode, unspecified; M19.90 Unspecified osteoarthritis, unspecified site; Z91.14 Patient's other noncompliance with medication regimen; Z79.4 Long term (current) use of insulin

== ENCOUNTER 2018-01-05 16:46 | Inpatient (IN) | payer OTHER ==
[2018-01-05] VITALS (8 sets, daily range): BP systolic 92–166; BP diastolic 52–85
[~2018-01-05] VITALS: Ht 157.5 cm; Wt 40.0 kg
[~2018-01-05 16:46] MED LIST changes: +SODIUM BICARBI650 MG PO
[2018-01-05 17:17] LABS: HEMOGLOBIN 13.2 g/dl (12.0-16.0); IMMATURE GRANULOCYTES 0.7 % (0.0-5.0); MEAN CELL VOLUME 91.3 fL CALC (80.0-100.0); MEAN CORPUSCULAR HGB 28.7 pG CALC (26.0-32.0); MEAN CORPUSCULAR HGB CONC 31.4 g/L CALC (32.0-36.0); NEUT# 2.18 thou/uL (2.00-7.15); RED BLOOD COUNT 4.6 mill/uL (4.20-5.60); RED CELL DISTRI WIDTH 12.7 % (11.5-15.5)
[2018-01-05 17:30] LABS: ALKALINE PHOSPHATASE 175 u/l (38-126); BILIRUBIN, TOTAL 0.6 mg/dL (0.0-1.4); BUN 23 mg/dL (7-17); BUN/CREATININE RATIO 34 (12-20 (CALC)); CHLORIDE 101 mmol/l (95-108); CREATININE 0.7 mg/dL (0.5-1.0); GFR > 60 ML/MIN (>=60 (CALC)); GFR FOR AFR.AMER. > 60 ML/MIN (>=60 (CALC)); LIPASE 11 u/l (23-300); MAGNESIUM 2.3 mg/dL (1.6-2.3); SGOT/AST 40 u/l (14-36); SGPT/ALT 49 u/l (9-52); SODIUM 137 mmol/l (137-146); TOTAL PROTEIN 8.3 g/dL (6.3-8.2)
[2018-01-05 17:30] LABS: INFLUENZA A NONE DETECTED (NONE DETECT); INFLUENZA B NONE DETECTED (NONE DETECT)
[2018-01-05 17:35] LABS: ALBUMIN 4.5 g/dL (3.2-5.0); ANION GAP 35 (6-22 (CALC)); POTASSIUM 5.2 mmol/l (3.5-5.1)
[2018-01-05 17:36] LABS: CARBON DIOXIDE 6 mmol/l (22-30)
[2018-01-05 21:49] LABS: URINE BILIRUBIN - DIPSTICK NEGATIVE (NEGATIVE); URINE BLOOD DIPSTICK TRACE-LYSED (NEGATIVE); URINE COLOR YELLOW; URINE GLUCOSE - DIPSTICK >=1000 mg/dL (NEGATIVE); URINE KETONE >=80 mg/dL (NEGATIVE); URINE NITRITE - DIPSTICK NEGATIVE (Negative); URINE PROTEIN - DIPSTICK TRACE mg/dL (NEG-TRACE); URINE SPECIFIC GRAVITY 1.025; URINE UROBILINOGEN - DIPSTICK 0.2 E.U./dL (0.2)
[2018-01-05 21:50] LABS: URINE CLARITY CLOUDY; URINE LEUK ESTERASE SMALL (NEGATIVE)
[2018-01-05 21:57] LABS: URINE SQUAMOUS EPITHELIAL CELL FEW EPI/hpf (0-FEW); URINE WBC 20-50 WBC/hpf (0-5); URINE YEAST MANY hpf
[2018-01-05 23:02] LABS: BUN 20 mg/dL (7-17); BUN/CREATININE RATIO 36 (12-20 (CALC)); CREATININE 0.6 mg/dL (0.5-1.0); GFR > 60 ML/MIN (>=60 (CALC)); GFR FOR AFR.AMER. > 60 ML/MIN (>=60 (CALC)); POTASSIUM 4.4 mmol/l (3.5-5.1); SODIUM 139 mmol/l (137-146)
[2018-01-05 23:04] LABS: ANION GAP 21 (6-22 (CALC)); CHLORIDE 110 mmol/l (95-108)
[2018-01-05 23:06] LABS: CARBON DIOXIDE 12 mmol/l (22-30)
[2018-01-06] VITALS (21 sets, daily range): BP systolic 95–146; BP diastolic 51–90
[2018-01-06 04:16] LABS: IMMATURE GRANULOCYTES 0.2 % (0.0-5.0); MEAN CORPUSCULAR HGB 28.9 pG CALC (26.0-32.0); MEAN CORPUSCULAR HGB CONC 32.8 g/L CALC (32.0-36.0); NEUT# 2.12 thou/uL (2.00-7.15); RED BLOOD COUNT 3.57 mill/uL (4.20-5.60); RED CELL DISTRI WIDTH 12.3 % (11.5-15.5)
[2018-01-06 04:25] LABS: ALKALINE PHOSPHATASE 106 u/l (38-126); ANION GAP 13 (6-22 (CALC)); BILIRUBIN, TOTAL 0.3 mg/dL (0.0-1.4); BUN 19 mg/dL (7-17); BUN/CREATININE RATIO 40 (12-20 (CALC)); CHLORIDE 109 mmol/l (95-108); CREATININE 0.5 mg/dL (0.5-1.0); GFR > 60 ML/MIN (>=60 (CALC)); GFR FOR AFR.AMER. > 60 ML/MIN (>=60 (CALC)); MAGNESIUM 1.9 mg/dL (1.6-2.3); POTASSIUM 3.7 mmol/l (3.5-5.1); SGOT/AST 40 u/l (14-36); SGPT/ALT 41 u/l (9-52); SODIUM 139 mmol/l (137-146)
[2018-01-06 04:26] LABS: ALBUMIN 3.1 g/dL (3.2-5.0); CARBON DIOXIDE 21 mmol/l (22-30); TOTAL PROTEIN 6.4 g/dL (6.3-8.2)
[2018-01-06 04:27] LABS: HEMATOCRIT 31.4 % (37.0-47.0); HEMOGLOBIN 10.3 g/dl (12.0-16.0)
[2018-01-07] VITALS (12 sets, daily range): BP systolic 77–170; BP diastolic 48–87
[2018-01-07 04:56] LABS: HEMATOCRIT 35.3 % (37.0-47.0); HEMOGLOBIN 11.5 g/dl (12.0-16.0); MEAN CELL VOLUME 88.3 fL CALC (80.0-100.0); MEAN CORPUSCULAR HGB 28.8 pG CALC (26.0-32.0); MEAN CORPUSCULAR HGB CONC 32.6 g/L CALC (32.0-36.0); NEUT# 1.07 thou/uL (2.00-7.15); RED CELL DISTRI WIDTH 12.7 % (11.5-15.5)
[2018-01-07 05:10] LABS: ALBUMIN 3.1 g/dL (3.2-5.0); ALKALINE PHOSPHATASE 107 u/l (38-126); ANION GAP 10 (6-22 (CALC)); BILIRUBIN, TOTAL 0.5 mg/dL (0.0-1.4); BUN 14 mg/dL (7-17); BUN/CREATININE RATIO 30 (12-20 (CALC)); CARBON DIOXIDE 25 mmol/l (22-30); CHLORIDE 108 mmol/l (95-108); CREATININE 0.5 mg/dL (0.5-1.0); GFR > 60 ML/MIN (>=60 (CALC)); GFR FOR AFR.AMER. > 60 ML/MIN (>=60 (CALC)); MAGNESIUM 1.9 mg/dL (1.6-2.3); POTASSIUM 3.9 mmol/l (3.5-5.1); SGOT/AST 37 u/l (14-36); SGPT/ALT 37 u/l (9-52); SODIUM 138 mmol/l (137-146); TOTAL PROTEIN 6.2 g/dL (6.3-8.2)
[2018-01-08 03:28] VITALS: BP 128/71
[2018-01-08 05:57] LABS: HEMATOCRIT 32.3 % (37.0-47.0); HEMOGLOBIN 10.5 g/dl (12.0-16.0); IMMATURE GRANULOCYTES 0.4 % (0.0-5.0); MEAN CORPUSCULAR HGB 28.9 pG CALC (26.0-32.0); MEAN CORPUSCULAR HGB CONC 32.5 g/L CALC (32.0-36.0); PLATELET COUNT 195 thou/uL (130-400); RED BLOOD COUNT 3.63 mill/uL (4.20-5.60); RED CELL DISTRI WIDTH 12.6 % (11.5-15.5)
[2018-01-08 06:20] LABS: MANUAL DIFFERENTIAL YES
[2018-01-08 06:21] LABS: BAND 4 % (0-8)
[2018-01-08 06:25] LABS: ALBUMIN 2.7 g/dL (3.2-5.0); ALKALINE PHOSPHATASE 100 u/l (38-126); ANION GAP 9 (6-22 (CALC)); BILIRUBIN, TOTAL 0.4 mg/dL (0.0-1.4); BUN 17 mg/dL (7-17); BUN/CREATININE RATIO 39 (12-20 (CALC)); CARBON DIOXIDE 28 mmol/l (22-30); CHLORIDE 104 mmol/l (95-108); CREATININE 0.4 mg/dL (0.5-1.0); GFR > 60 ML/MIN (>=60 (CALC)); GFR FOR AFR.AMER. > 60 ML/MIN (>=60 (CALC)); MAGNESIUM 1.8 mg/dL (1.6-2.3); POTASSIUM 4.1 mmol/l (3.5-5.1); SGOT/AST 38 u/l (14-36); SGPT/ALT 33 u/l (9-52); SODIUM 137 mmol/l (137-146); TOTAL PROTEIN 5.5 g/dL (6.3-8.2)
[2018-01-08 07:00] VITALS: BP 121/67
[2018-01-08 08:14] VITALS: BP 121/67
[2018-01-08] MEDS ORDERED: ATORVASTATIN CA40 MG PO (12:15)
[2018-01-08] MEDS ORDERED: LEVEMIR100 UNIT/M SC (12:16)
[2018-01-08] MEDS ORDERED: ZESTRIL/PRIN5 MG/TA1 PO (12:16)
[2018-01-08] MEDS ORDERED: SODIUM BICARBI650 MG PO (12:16)
== END 2018-01-08 13:26 | disposition home or self-care (01) | DRG 638 ==
LOC: ED 16:46 → ED-I 18:22 → ED 18:46 → ICU 18:47
PROVIDERS: Family Medicine; ADMIT Internal Medicine Nephrology; ATTEND Internal Medicine Nephrology
DX: E11.10 Type 2 diabetes mellitus with ketoacidosis without coma (principal); Z68.1 Body mass index [BMI] 19.9 or less, adult; I10 Essential (primary) hypertension; E78.5 Hyperlipidemia, unspecified; M19.90 Unspecified osteoarthritis, unspecified site; K21.9 Gastro-esophageal reflux disease without esophagitis; F32.9 Major depressive disorder, single episode, unspecified; E87.8 Other disorders of electrolyte and fluid balance, not elsewhere classified; D63.8 Anemia in other chronic diseases classified elsewhere; R63.6 Underweight; E11.40 Type 2 diabetes mellitus with diabetic neuropathy, unspecified; Z79.4 Long term (current) use of insulin; Z91.14 Patient's other noncompliance with medication regimen; Z91.11 Patient's noncompliance with dietary regimen
CPT/HCPCS: J1650

== ENCOUNTER 2018-02-28 12:48 | Inpatient (IN) | payer OTHER ==
[2018-02-28] VITALS (10 sets, daily range): BP systolic 122–166; BP diastolic 67–89
[~2018-02-28] VITALS: Ht 157.5 cm; Wt 41.3 kg
[~2018-02-28 12:48] MED LIST changes: +ATORVASTATIN CA40 MG PO; +ZESTRIL/PRIN5 MG/TA1 PO
--- NOTE | 2018-02-28 13:00 | NUR ---
PT IN ROOM, STATES HAS NOT TAKEN HER INSULIN TODAY, AND DOES NOT USUALLY DO HER ACCUCHECKS. PT DOES NOT APPEAR TO BE ON ANY DM DIET, STATES SHE LIKES TO EAT HER FRIED FOODS, AND SWEETS.
[2018-02-28] MEDS ORDERED: HUMALOG100 MG/ML SC (13:03)
[2018-02-28 13:53] LABS: HEMOGLOBIN 12.4 g/dl (12.0-16.0); MEAN CELL VOLUME 91.7 fL CALC (80.0-100.0); MEAN CORPUSCULAR HGB 28.7 pG CALC (26.0-32.0); MEAN CORPUSCULAR HGB CONC 31.3 g/L CALC (32.0-36.0); NEUT# 2.43 thou/uL (2.00-7.15); RED BLOOD COUNT 4.32 mill/uL (4.20-5.60); RED CELL DISTRI WIDTH 12.8 % (11.5-15.5)
[2018-02-28 13:54] LABS: BILIRUBIN, TOTAL 0.8 mg/dL (0.0-1.4); BUN 20 mg/dL (7-17); BUN/CREATININE RATIO 39 (12-20 (CALC)); CHLORIDE 100 mmol/l (95-108); CREATININE 0.5 mg/dL (0.5-1.0); GFR > 60 ML/MIN (>=60 (CALC)); GFR FOR AFR.AMER. > 60 ML/MIN (>=60 (CALC)); HEMATOCRIT 39.6 % (37.0-47.0); POTASSIUM 4.9 mmol/l (3.5-5.1); SGOT/AST 64 u/l (14-36); SODIUM 134 mmol/l (137-146)
[2018-02-28 13:58] LABS: ALBUMIN 4.6 g/dL (3.2-5.0); ALKALINE PHOSPHATASE 175 u/l (38-126); ANION GAP 27 (6-22 (CALC)); CARBON DIOXIDE 12 mmol/l (22-30); TOTAL PROTEIN 8.5 g/dL (6.3-8.2)
--- NOTE | 2018-02-28 14:03 | NUR ---
PT RESTING QUIETLY ON STRETCHER, WARM BLANKETS GIVEN , FLUIDS INFUSING.
--- NOTE | 2018-02-28 14:29 | NUR ---
PT RESTING QUIETLY, ADVISED OF GIVING INSULIN FOR CRITICAL LAB ORDER
[2018-02-28 14:36] LABS: URINE BILIRUBIN - DIPSTICK NEGATIVE (NEGATIVE); URINE BLOOD DIPSTICK NEGATIVE (NEGATIVE); URINE COLOR YELLOW; URINE GLUCOSE - DIPSTICK >=1000 mg/dL (NEGATIVE); URINE KETONE >=80 mg/dL (NEGATIVE); URINE LEUK ESTERASE NEGATIVE (NEGATIVE); URINE NITRITE - DIPSTICK NEGATIVE (Negative); URINE PH 5.5 (4.5-8.0); URINE PROTEIN - DIPSTICK NEGATIVE (NEG-TRACE); URINE UROBILINOGEN - DIPSTICK 0.2 E.U./dL (0.2)
[2018-02-28 14:41] LABS: URINE CLARITY CLEAR
[2018-02-28 14:48] LABS: BARBITURATES NEGATIVE (NEGATIVE); COCAINE NEGATIVE (NEGATIVE); METHADONE NEGATIVE (NEGATIVE); OXCYCODONE NEGATIVE (NEGATIVE); TETRAHYDROCANNABIONOL NEGATIVE (NEGATIVE); TRICYLIC ANTIDEPRESSANTS NEGATIVE (NEGATIVE)
--- NOTE | 2018-02-28 15:48 | NUR ---
PT GIVEN 3RD WARM BLANKET, VITAL SIGNS REMAIN STABLE. 2ND BAG OF FLUIDS INFUSING, ADVISED OF ADMISSION, PT VOICES UNDERSTANDING.
--- NOTE | 2018-02-28 16:10 | NUR ---
CALLED DR PARMAR TO ASK FOR ADMISSION ORDERS, HE STATED HE WOULD BE PLACING THEM.
--- NOTE | 2018-02-28 16:19 | NUR ---
NURSE UNAVAILABLE AT THIS TIME TO GIVE REPORT, WILL CALL BACK SOON POSSIBLE
--- NOTE | 2018-02-28 17:00 | NUR ---
Admission Note Report Given to: sbar printed to floor Transported by: Wheelchair x Stretcher Transported with: x Nurse Transporter x Patent IV O2 x Training Executive
--- NOTE | 2018-02-28 17:08 | NUR ---
female pt received from ER via stretcher accompanied by Albania Lopez RN to ICU bed 6 in stable condition; amblatory to bed with weak gait; weight obtained via bed scale; admission assessment completed at this time; pt alert and oriented; denies pain; nausea and vomiting noted at present; c/c not feeling well and elevated sugar for 3 days; resp even and unlabored; lungs clear; ra; skin color wnl; hr reg; sr-st on monitor; strong pulses; no edema noted; abd soft with bs present; no bm noted per senior writer; pt admits to voiding without pain or burning; admits to stress incont; #22 in lfa with ivf/bolus infusing per ER; no redness or edema noted at site; plan of care explained; monitoring attachments connected; call light within reach; will conitnue to monitor
--- NOTE | 2018-02-28 17:21 | NUR ---
PT TAKEN TO FLOOR PER STRETCHER WITH MONITER. PT ALERT/ORIENTED X3, FLUIDS INFUSING
[2018-02-28 17:29] LABS: ANION GAP 25 (6-22 (CALC)); BUN 19 mg/dL (7-17); BUN/CREATININE RATIO 37 (12-20 (CALC)); CHLORIDE 107 mmol/l (95-108); CREATININE 0.5 mg/dL (0.5-1.0); GFR > 60 ML/MIN (>=60 (CALC)); GFR FOR AFR.AMER. > 60 ML/MIN (>=60 (CALC)); POTASSIUM 5.1 mmol/l (3.5-5.1); SODIUM 136 mmol/l (137-146)
[2018-02-28 17:32] LABS: CARBON DIOXIDE 9 mmol/l (22-30)
--- NOTE | 2018-02-28 17:45 | NUR ---
ACCUCHECK 312; INSULIN GTT INITIATED AT 3 UNITS/HR; NS BOLUS CONTINUES; WILL CONTINUE TO MONITOR
[2018-02-28 17:46] LABS: HEMATOCRIT 37.5 % (37.0-47.0); HEMOGLOBIN 11.7 g/dl (12.0-16.0); IMMATURE GRANULOCYTES 0.6 % (0.0-5.0); MEAN CELL VOLUME 92.1 fL CALC (80.0-100.0); MEAN CORPUSCULAR HGB 28.7 pG CALC (26.0-32.0); MEAN CORPUSCULAR HGB CONC 31.2 g/L CALC (32.0-36.0); NEUT# 3.77 thou/uL (2.00-7.15); RED BLOOD COUNT 4.07 mill/uL (4.20-5.60); RED CELL DISTRI WIDTH 12.9 % (11.5-15.5)
--- NOTE | 2018-02-28 18:15 | NUR ---
awake; assisted to bsc; weak gait noted; pt offers no complaints; iv patent; fluids infusing as per protocol; insulin gtt infusing at 3 units/hr; no redness or edema noted at site; sr on monitor; call light within reach
--- NOTE | 2018-02-28 19:50 | NUR ---
awakens easily. denies c/o. stove carriage operator shows sinus rhythm. #22 lfa ns bolus infusing. remains npo. voids per bsc. fall precautions cont.
--- NOTE | 2018-02-28 20:30 | NUR ---
lab here. blood drawn.
[2018-02-28 21:04] LABS: ANION GAP 19 (6-22 (CALC)); BUN 17 mg/dL (7-17); BUN/CREATININE RATIO 36 (12-20 (CALC)); CARBON DIOXIDE 11 mmol/l (22-30); CHLORIDE 111 mmol/l (95-108); CREATININE 0.5 mg/dL (0.5-1.0); GFR > 60 ML/MIN (>=60 (CALC)); GFR FOR AFR.AMER. > 60 ML/MIN (>=60 (CALC)); POTASSIUM 4.3 mmol/l (3.5-5.1); SODIUM 137 mmol/l (137-146)
--- NOTE | 2018-02-28 21:30 | NUR ---
dr guerra notified of lab results. no new orders.
[2018-03-01] VITALS (19 sets, daily range): BP systolic 122–177; BP diastolic 70–93
--- NOTE | 2018-03-01 00:01 | NUR ---
eyes closed. no distress. cardiac sonographer shows sinus rhythm.
--- NOTE | 2018-03-01 00:27 | NUR ---
lab here. blood drawn.
[2018-03-01 00:55] LABS: ANION GAP 13 (6-22 (CALC)); BUN 15 mg/dL (7-17); BUN/CREATININE RATIO 39 (12-20 (CALC)); CARBON DIOXIDE 15 mmol/l (22-30); CHLORIDE 110 mmol/l (95-108); CREATININE 0.4 mg/dL (0.5-1.0); GFR > 60 ML/MIN (>=60 (CALC)); GFR FOR AFR.AMER. > 60 ML/MIN (>=60 (CALC)); SODIUM 134 mmol/l (137-146)
--- NOTE | 2018-03-01 02:00 | NUR ---
resting quietly. resps even & unlabored. no apparent distress.
--- NOTE | 2018-03-01 04:00 | NUR ---
eyes closed. no distress. color television console monitor shows sinus rhythm.
--- NOTE | 2018-03-01 04:20 | NUR ---
lab here. blood drawn.
[2018-03-01 04:37] LABS: HEMOGLOBIN 10.1 g/dl (12.0-16.0); IMMATURE GRANULOCYTES 0.4 % (0.0-5.0); MEAN CELL VOLUME 87.7 fL CALC (80.0-100.0); MEAN CORPUSCULAR HGB 28.9 pG CALC (26.0-32.0); MEAN CORPUSCULAR HGB CONC 32.9 g/L CALC (32.0-36.0); NEUT# 3.36 thou/uL (2.00-7.15); RED BLOOD COUNT 3.5 mill/uL (4.20-5.60); RED CELL DISTRI WIDTH 12.7 % (11.5-15.5)
[2018-03-01 04:42] LABS: HEMATOCRIT 30.7 % (37.0-47.0)
[2018-03-01 05:04] LABS: ANION GAP 8 (6-22 (CALC)); BUN 14 mg/dL (7-17); BUN/CREATININE RATIO 39 (12-20 (CALC)); CHLORIDE 108 mmol/l (95-108); CREATININE 0.4 mg/dL (0.5-1.0); GFR > 60 ML/MIN (>=60 (CALC)); GFR FOR AFR.AMER. > 60 ML/MIN (>=60 (CALC)); POTASSIUM 3.7 mmol/l (3.5-5.1); SODIUM 134 mmol/l (137-146)
[2018-03-01 05:05] LABS: CARBON DIOXIDE 22 mmol/l (22-30)
--- NOTE | 2018-03-01 05:52 | NUR ---
eyes closed. no distress. environmental monitoring specialist shows sinus rhythm.
--- NOTE | 2018-03-01 07:30 | NUR ---
pt awake in bed; no distress noted; pt offers no complaints except hunger; assessment completed at this time; pt alert and oriented; denies pain; no n/v noted; resp even and unlabored; lungs clear; skin color wnl; ra; hr reg; strong pulses; no edema noted; sr on monitor; abd soft with bs present; no bm noted per lead technical writer; pt admits to voiding without complication; no urine to inspect at this time; #22 in lfa patent with D5 1/2NS infusing without complication; no redness or edema noted at site; plan of care/ am meds explained; call light within reach; will continue to monitor
--- NOTE | 2018-03-01 08:10 | NUR ---
resting in bed with eyes closed; no distress noted; pt offers no complaints; iv patent; fluids infusing without complication; no redness or edema noted at site; sr on monitor; call light within reach; will continue to monitor
[2018-03-01 09:29] LABS: ANION GAP 13 (6-22 (CALC)); BUN 13 mg/dL (7-17); BUN/CREATININE RATIO 28 (12-20 (CALC)); CARBON DIOXIDE 17 mmol/l (22-30); CHLORIDE 108 mmol/l (95-108); CREATININE 0.4 mg/dL (0.5-1.0); GFR > 60 ML/MIN (>=60 (CALC)); GFR FOR AFR.AMER. > 60 ML/MIN (>=60 (CALC)); POTASSIUM 4.1 mmol/l (3.5-5.1); SODIUM 134 mmol/l (137-146)
--- NOTE | 2018-03-01 09:55 | NUR ---
Dr Pena and Antoinette Fitch SURGICAL INSTRUMENT MECHANIC present at bedside to assess pt and discuss plan of care
--- NOTE | 2018-03-01 10:14 | NUR ---
resting in bed with eyes closed; no distress noted; pt offers no complaints; iv patent; fluids infusing without complication; no redness or edema noted at site; sr on monitor; call light within reach; will contiune to monitor
--- NOTE | 2018-03-01 12:13 | NUR ---
awake in bed eting lunch; no distress noted; pt offers no complaints; no n/v noted; sr on monitor; iv patent with ivf infusing without complication; no redness or edema noted at site; call light within reach; will continue to monitor
--- NOTE | 2018-03-01 14:20 | NUR ---
resting in bed with eyes closed; no distress noted; iv patent; no redness or edema noted at site; sr on monitor; call light within reach; will continue to monitor
--- NOTE | 2018-03-01 16:05 | NUR ---
pt resting in bed with eyes closed; resp even and unlabored; iv patent; fluids infusing without complication; no redness or edema noted at site; sr on monitor; call light within reach; will continue to monitor
--- NOTE | 2018-03-01 17:16 | NUR ---
attempted to assist pt to recliner for dinner as per MD order; pt refused;
--- NOTE | 2018-03-01 17:31 | NUR ---
awake in bed; complaints of nasuea; refusing dinner; pt education on need to eat due to receiving long acting insulin this am; continues to refuse; sr on monitor; iv patent with ivf infusing without complication; no redness or edema noted at site; bed in lowest position; call light within reach
--- NOTE | 2018-03-01 17:38 | NUR ---
300cc emesis noted; medicated with zofran as per orders
--- NOTE | 2018-03-01 19:10 | NUR ---
awakens easily. c/o nausea. no emesis. gambling monitor shows sinus rhythm. #22 lfa ns infusing @ 80cchr. refused po intake. voids per bsc. fall precautions cont.
--- NOTE | 2018-03-01 19:10 | NUR ---
urine cloudy yellow.
--- NOTE | 2018-03-01 21:00 | NUR ---
awake. vomitted approx 100cc. zofran 4mg ivp given.
[2018-03-01 21:17] LABS: ANION GAP 15 (6-22 (CALC)); BUN 11 mg/dL (7-17); BUN/CREATININE RATIO 30 (12-20 (CALC)); CARBON DIOXIDE 18 mmol/l (22-30); CHLORIDE 106 mmol/l (95-108); CREATININE 0.4 mg/dL (0.5-1.0); GFR > 60 ML/MIN (>=60 (CALC)); GFR FOR AFR.AMER. > 60 ML/MIN (>=60 (CALC)); POTASSIUM 4.1 mmol/l (3.5-5.1); SODIUM 134 mmol/l (137-146)
--- NOTE | 2018-03-01 22:00 | NUR ---
eyes closed. no distress. rn cardiac cath shows sinus rhythm.
[2018-03-02] VITALS (10 sets, daily range): BP systolic 150–189; BP diastolic 74–102
--- NOTE | 2018-03-02 00:01 | NUR ---
awake. vomitted approx 200cc. up to bsc to void then back to bed. cool cloth given.
--- NOTE | 2018-03-02 02:00 | NUR ---
resting quietly. resps even & unlabored. no apparent distress.
--- NOTE | 2018-03-02 04:00 | NUR ---
eyes closed. no further emesis. no distress.
--- NOTE | 2018-03-02 06:00 | NUR ---
up to bsc. weighed per standing scale then to bed. has been incont in pull ups. c/o nausea. vomitted 200cc green bile. zofran 4mg ivp given.
--- NOTE | 2018-03-02 07:05 | NUR ---
PT REPORT RECIEVED FROM SILAS SÁNCHEZ. PT RESTING IN BED. NO S/S OF DISTRESS. CALL LIGHT IN REACH. WILL CONTINUE TO MONITOR
--- NOTE | 2018-03-02 08:03 | NUR ---
PT ASSESSMENT COMPLETE. A/O X3. SPEECH IS CLEAR. PT C/O NAUSEA, 100 CC OF GREEN EMESIS NOTED. COOL CLOTH PROVIDED TO PT, EMESIS BAGS, AND DISCUSSED MEDICATION ADMINISTRATION. RESP EVEN AND UNLABORED. LUNG SOUNDS CLEAR. BOWEL SOUNDS HYPOACTIVE. STRONG RADIAL AND PEDAL PULSES. #22 LFA NS @80. SITE APPEARS HEALTHY. PT DENIES ANY FURTHER NEEDS. POC DISCUSSED. SAFETY PRECAUTIONS IN PLACE. BSC NEAR BED. CALL LIGHT IN REACH. WILL CONTINUE TO MONITOR.
--- NOTE | 2018-03-02 08:25 | NUR ---
DR. LIN CALLED IN REGARDS TO PT BLOOD PRESSURE. NEW ORDERS AT THIS TIME.
--- NOTE | 2018-03-02 09:00 | NUR ---
PT RESTING AT THIS TIME. RESP EVEN AND UNLABORED. LIGHTS OFF AND ROOM DOOR CLOSED FOR COMFORT. CALL LIGHT IN REACH. WILL CONTINUE TO MONITOR
--- NOTE | 2018-03-02 10:03 | NUR ---
PT CONTINUOUSLY NAUSEOUS. MEDICATED W/ 4MG ZOFRAN IV. ROOM TEMP ADJUSTED FOR PT COMFORT. CALL LIGHT IN REACH. WILL CONTINUE TO MONITOR
--- NOTE | 2018-03-02 11:31 | NUR ---
pt resting, still nauseous at this time. air adjusted for comfort. dr. watson in to see pt. bsc near bed. call light in reach. will continue to monitor.
[2018-03-02 12:03] LABS: HEMATOCRIT 38.5 % (37.0-47.0); HEMOGLOBIN 12.7 g/dl (12.0-16.0); IMMATURE GRANULOCYTES 0.4 % (0.0-5.0); MEAN CELL VOLUME 86.5 fL CALC (80.0-100.0); MEAN CORPUSCULAR HGB 28.5 pG CALC (26.0-32.0); NEUT# 4.57 thou/uL (2.00-7.15); RED BLOOD COUNT 4.45 mill/uL (4.20-5.60); RED CELL DISTRI WIDTH 12.6 % (11.5-15.5)
[2018-03-02 12:18] LABS: BUN 9 mg/dL (7-17); BUN/CREATININE RATIO 23 (12-20 (CALC)); CARBON DIOXIDE 18 mmol/l (22-30); CHLORIDE 101 mmol/l (95-108); CREATININE 0.4 mg/dL (0.5-1.0); GFR > 60 ML/MIN (>=60 (CALC)); GFR FOR AFR.AMER. > 60 ML/MIN (>=60 (CALC)); SODIUM 134 mmol/l (137-146)
[2018-03-02 12:20] LABS: ANION GAP 18 (6-22 (CALC)); POTASSIUM 3.2 mmol/l (3.5-5.1)
[2018-03-02 12:30] LABS: AMYLASE 86 u/l (30-110); LIPASE < 10 u/l (23-300)
--- NOTE | 2018-03-02 15:28 | NUR ---
PT C/O FEELING NAUSEOUS AT THIS TIME. MEDICTAED W/ 4 MG OF ZOFRAN. PT REQUESTING A SHOWER.
[2018-03-03 04:00] VITALS: BP 153/78
[2018-03-03 05:14] LABS: HEMATOCRIT 35.6 % (37.0-47.0); HEMOGLOBIN 12.1 g/dl (12.0-16.0); IMMATURE GRANULOCYTES 0.3 % (0.0-5.0); MEAN CELL VOLUME 84.4 fL CALC (80.0-100.0); MEAN CORPUSCULAR HGB 28.7 pG CALC (26.0-32.0); NEUT# 3.7 thou/uL (2.00-7.15); RED BLOOD COUNT 4.22 mill/uL (4.20-5.60); RED CELL DISTRI WIDTH 12.4 % (11.5-15.5)
[2018-03-03 05:25] LABS: ALKALINE PHOSPHATASE 106 u/l (38-126); BILIRUBIN, TOTAL 1.3 mg/dL (0.0-1.4); BUN 10 mg/dL (7-17); BUN/CREATININE RATIO 29 (12-20 (CALC)); CHLORIDE 100 mmol/l (95-108); CREATININE 0.3 mg/dL (0.5-1.0); GFR > 60 ML/MIN (>=60 (CALC)); GFR FOR AFR.AMER. > 60 ML/MIN (>=60 (CALC)); MAGNESIUM 1.8 mg/dL (1.6-2.3); POTASSIUM 3.1 mmol/l (3.5-5.1); SGOT/AST 39 u/l (14-36); SODIUM 131 mmol/l (137-146)
[2018-03-03 05:29] LABS: ALBUMIN 3.4 g/dL (3.2-5.0); ANION GAP 10 (6-22 (CALC)); CARBON DIOXIDE 24 mmol/l (22-30); TOTAL PROTEIN 6.7 g/dL (6.3-8.2)
--- NOTE | 2018-03-03 07:15 | NUR ---
PT REPORT RECIEVED FROM Georges GOULDRN. PT SLEEPING. NO S/S OF DISTRESS. CALL LIGHT IN REACH. WILL CONTINUE TO MONITOR
--- NOTE | 2018-03-03 07:39 | NUR ---
PT ASSESSMENT COMPLETE. A/O X3. SPEECH IS CLEAR. RESP EVEN AND UNLABORED. LUNG SOUNDS CLEAR. BOWEL SOUNDS HYPERACTIVE. STRONG RADIAL AND PEDAL PULSES. SKIN INTACT. #22 LFA NS @80. SITE APPEARS HEALTHY. NO C/O PAIN OR NAUSEA AT THIS TIME. BSC NEAR BED. POC DISCUSSED. SAFETY PRECAUTIONS IN PLACE. CALL LIGHT IN REACH. WILL CONTINUE TO MONITOR
[2018-03-03 08:12] VITALS: BP 151/89
--- NOTE | 2018-03-03 08:12 | NUR ---
PT HAS CONSTANT HICCUPS. PT STATES THAT SHE DOES NOT FEEL WELL. PT STATES "I'M NOT IN PAIN, I JUST DON'T FEEL WELL, I'M TIRED. I CAN'T DESCRIBE IT. VS CHECKED. IV REMOVED DUE TO INFILTRATE. CATHETER INTACT. ASSISTED PT TO COMFORT. PT DENIES ANY NEEDS. WILL CONTINUE TO MONITOR
--- NOTE | 2018-03-03 12:24 | NUR ---
PT SLEEPING IN RECLINER. DENIES ANY PAIN OR NAUSEA AT THIS TIME. PT REQUESTING TO GET SOME REST. SAFETY PRECAUTIONS IN PLACE. CALL LIGHT IN REACH. WILL CONTINUE TO MONITOR
[2018-03-03 15:48] VITALS: BP 169/96
--- NOTE | 2018-03-03 16:56 | NUR ---
PT RESTING IN BED. NEW IV START BY NICK GONZALEZ. #24 YONATHAN. SITE APPEARS HEALTHY. FLUSHED AND PATENT. PT DENIES ANY PAIN OR NEEDS. BSC NEAR BED. CALL LIGHT IN REACH. WILL CONTINUE TO MONITOR
[2018-03-03 20:00] VITALS: BP 175/96
[2018-03-04 04:00] VITALS: BP 143/81
[2018-03-04 05:32] LABS: HEMATOCRIT 33.9 % (37.0-47.0); HEMOGLOBIN 11.5 g/dl (12.0-16.0); IMMATURE GRANULOCYTES 0.3 % (0.0-5.0); MEAN CELL VOLUME 85.2 fL CALC (80.0-100.0); MEAN CORPUSCULAR HGB 28.9 pG CALC (26.0-32.0); MEAN CORPUSCULAR HGB CONC 33.9 g/L CALC (32.0-36.0); NEUT# 1.71 thou/uL (2.00-7.15); RED BLOOD COUNT 3.98 mill/uL (4.20-5.60); RED CELL DISTRI WIDTH 12.2 % (11.5-15.5)
[2018-03-04 05:43] LABS: ALKALINE PHOSPHATASE 102 u/l (38-126); ANION GAP 14 (6-22 (CALC)); BILIRUBIN, TOTAL 1.3 mg/dL (0.0-1.4); BUN 10 mg/dL (7-17); BUN/CREATININE RATIO 27 (12-20 (CALC)); CARBON DIOXIDE 20 mmol/l (22-30); CHLORIDE 97 mmol/l (95-108); CREATININE 0.4 mg/dL (0.5-1.0); GFR > 60 ML/MIN (>=60 (CALC)); GFR FOR AFR.AMER. > 60 ML/MIN (>=60 (CALC)); MAGNESIUM 1.7 mg/dL (1.6-2.3); POTASSIUM 3.6 mmol/l (3.5-5.1); SGOT/AST 30 u/l (14-36); SODIUM 128 mmol/l (137-146)
--- NOTE | 2018-03-04 07:10 | NUR ---
PT REPORT RECIEVED FROM VIGNESHRN. PT SLEEPING. NO S/S OF DISTRESS. CALL LIGHT IN REACH. WILL CONTINUE TO MONITOR
--- NOTE | 2018-03-04 08:00 | NUR ---
PT ASSESSMENT COMPLETE. A/O X3. SPEECH IS CLEAR. RESP EVEN AND UNLABORED. LUNG SOUNDS CLEAR. BOWEL SOUNDS ACTIVE X4. STRONG RADIAL AND PEDAL PULSES. #24 YONATHAN NS @80. SITE APPEARS HEALTHY. SKIN INTACT. PT DENIES ANY PAIN, NAUSEA, OR VOMITING. POC DISCUSSED. SAFETY PRECAUTIONS IN PLACE. BSC NEAR BED. CALL LIGHT IN REACH. WILL CONTINUE TO MONITOR.
[2018-03-04 08:30] VITALS: BP 121/78
--- NOTE | 2018-03-04 10:00 | NUR ---
PT AMBULATING THE HALLS AT THIS TIME W/ A STEADY GAIT
--- NOTE | 2018-03-04 11:15 | NUR ---
PHYSICAL THERAPY WALKING PT IN THE HALLS
--- NOTE | 2018-03-04 11:50 | NUR ---
Patient is up ambulating in the room. She is using her IV pole for assistnace. She is able to ambulate on a level surface x 200 feet but requires min assist of 1 even on the level surface. I would continue to recommend SNF if patient is agreeable as she remains a fall risk
--- NOTE | 2018-03-04 12:00 | NUR ---
PT SITTING IN RECLINER EATING LUNCH. NO S/S OF DISTRESS. PT DENIES ANY PAIN, NAUSEA, OR VOMITING. CALL LIGHT IN REACH. WILL CONTINUE TO MONITOR
[2018-03-04 16:00] VITALS: BP 140/80
--- NOTE | 2018-03-04 16:10 | NUR ---
PT RESTING IN RECLINER. NO S/S OF DISTRESS. PT DENIES ANY PAIN OR NEEDS. SAFETY PRECAUTIONS IN PLACE. BSC NEAR BED. CALL LIGHT IN REACH. WILL CONTINUE TO MONITOR
[2018-03-04 19:33] VITALS: BP 143/77
--- NOTE | 2018-03-04 19:59 | NUR ---
PT ASSESSED, LUNG SOUNDS ARE CLEAR, ABD SOFT NON-TENDER, SKIN INTACT. TEMP REPORTED @100.7, ENVIRONMENTAL CHANGES MADE PT WAS WEARING A SWEATSHIRT AND FLANNEL JACKET W/TWO BLANKETS ON IN BED. ROOM COOLED. WILL FOLLOW-UP AND CONITNUE TO MONITOR.
--- NOTE | 2018-03-05 00:48 | NUR ---
PT BS ASSESSED VIA ACCU-CHECK@135
--- NOTE | 2018-03-05 01:25 | NUR ---
PT APPEARS TO BE SLEEPING AT THIS TIME. NO S/S OF DISTRESS NOTED. CALL LIGHT AT SIDE.
--- NOTE | 2018-03-05 04:42 | NUR ---
PT V/S ASSESSED AND BS ACCU-CHECK @95. PT IS EATING A SMALL SNACK. BP WAS LOW AND PT DIFFICULT TO ROUSE WE WALKED INTO THE ROOM. BP CAME RIGHT UP SHE WOKE AND STARTING COMMUNICATING WITH US. WILL CONTINUE TO MONITOR CLOSELY. PT LEFT SITTING UPRIGHT IN BED W/LIGHTS ON AND EATING SNACK.
[2018-03-05 05:13] VITALS: BP 116/68
[2018-03-05 05:29] LABS: HEMATOCRIT 33.2 % (37.0-47.0); IMMATURE GRANULOCYTES 0.3 % (0.0-5.0); MEAN CELL VOLUME 84.9 fL CALC (80.0-100.0); MEAN CORPUSCULAR HGB 28.1 pG CALC (26.0-32.0); MEAN CORPUSCULAR HGB CONC 33.1 g/L CALC (32.0-36.0); NEUT# 1.35 thou/uL (2.00-7.15); RED BLOOD COUNT 3.91 mill/uL (4.20-5.60); RED CELL DISTRI WIDTH 12.3 % (11.5-15.5)
[2018-03-05 05:43] LABS: ALBUMIN 2.8 g/dL (3.2-5.0); ALKALINE PHOSPHATASE 88 u/l (38-126); BILIRUBIN, TOTAL 0.8 mg/dL (0.0-1.4); BUN 12 mg/dL (7-17); BUN/CREATININE RATIO 33 (12-20 (CALC)); CHLORIDE 102 mmol/l (95-108); CREATININE 0.4 mg/dL (0.5-1.0); GFR > 60 ML/MIN (>=60 (CALC)); GFR FOR AFR.AMER. > 60 ML/MIN (>=60 (CALC)); MAGNESIUM 1.8 mg/dL (1.6-2.3); POTASSIUM 3.2 mmol/l (3.5-5.1); SGOT/AST 27 u/l (14-36); TOTAL PROTEIN 5.7 g/dL (6.3-8.2)
[2018-03-05 05:44] LABS: ANION GAP 9 (6-22 (CALC)); CARBON DIOXIDE 27 mmol/l (22-30); SODIUM 135 mmol/l (137-146)
--- NOTE | 2018-03-05 07:15 | NUR ---
RECEIVED REPORT FROM JAY ROMERO. PT RESTING IN BED. NO S/S OF DISTRESS.
[2018-03-05 08:01] VITALS: BP 148/89
--- NOTE | 2018-03-05 08:01 | NUR ---
PT RESTING QUIETLY IN BED. PT RESPONDS TO VERBAL STIMULI.ASSESMENT COMPLETED AT THIS TIME(SEE INTERVENTION). LUNG SOUNDS CLEAR, HEART SOUNDS NORMAL, BOWEL SOUNDS ACTIVE. NO SWELLING OR EDEMA NOTED. #24 IN THE RU ARM FLUSHES WELL NO SWELLING OREDEMA NOTED. PT VOICING NO CPMPLAINTS AT THIS TIME. CALL BAEZA IN REACH WILL CONTINUE TO MONITOR.
--- NOTE | 2018-03-05 08:35 | NUR ---
PT WALKING THE HALLS FOR SOME EXCERCISE WALKING WITH STEADY GAIT.
[2018-03-05 09:54] VITALS: BP 148/89
--- NOTE | 2018-03-05 12:00 | NUR ---
PT SITTING ON THE SIDE OF THE THE BED EATING LUNCH. NO COMPLAINTS AT THIS TIME. WILL CONTINUE TO MONITOR.
[2018-03-05] MEDS ORDERED: ATORVASTATIN CA40 MG PO (12:33)
[2018-03-05] MEDS ORDERED: MIRTAZAPINE15 MG PO (12:34)
[2018-03-05] MEDS ORDERED: CARVEDILOL3.125 MG PO (12:34)
[2018-03-05] MEDS ORDERED: LISINOPRIL20 M1 PO (12:34)
[2018-03-05] MEDS ORDERED: METOCLOPRAMIDE10 MG PO (12:35)
[2018-03-05] MEDS ORDERED: PANTOPRAZOLE SO40 M1 PO (12:35)
--- NOTE | 2018-03-05 14:51 | NUR ---
Discharge instructions given. Patient verbalizes understanding of same. Discharged in stable condition via Ambulatory to Home with family. All belongings sent with pt.
== END 2018-03-05 14:29 | disposition home or self-care (01) | DRG 638 ==
LOC: ED 12:48 → ED-I 14:50 → ED 15:35 → ICU 15:36 → MS2 15:36
PROVIDERS: Emergency Medicine; Internal Medicine Nephrology; ADMIT Internal Medicine; ATTEND Internal Medicine
DX: E11.10 Type 2 diabetes mellitus with ketoacidosis without coma (principal); Z68.1 Body mass index [BMI] 19.9 or less, adult; E46 Unspecified protein-calorie malnutrition; E87.1 Hypo-osmolality and hyponatremia; I10 Essential (primary) hypertension; E78.5 Hyperlipidemia, unspecified; E11.43 Type 2 diabetes mellitus with diabetic autonomic (poly)neuropathy; K31.84 Gastroparesis; R74.0 Nonspecific elevation of levels of transaminase and lactic acid dehydrogenase [LDH]; K29.70 Gastritis, unspecified, without bleeding; F32.9 Major depressive disorder, single episode, unspecified; K21.9 Gastro-esophageal reflux disease without esophagitis; F10.10 Alcohol abuse, uncomplicated; D64.9 Anemia, unspecified; M19.90 Unspecified osteoarthritis, unspecified site; T38.3X6A Underdosing of insulin and oral hypoglycemic [antidiabetic] drugs, initial encounter; Z91.128 Patient's intentional underdosing of medication regimen for other reason; Z79.4 Long term (current) use of insulin; Z59.8 Other problems related to housing and economic circumstances
CPT/HCPCS: J1650; Q9967

== ENCOUNTER 2018-04-09 05:41 | Inpatient (IN) | payer OTHER ==
[~2018-04-09] VITALS: Ht 157.5 cm; Wt 41.0 kg
[2018-04-09] VITALS (17 sets, daily range): BP systolic 101–158; BP diastolic 57–94
[~2018-04-09 05:41] MED LIST changes: +CARVEDILOL3.125 MG PO; +HUMALOG100 MG/ML SC; +LISINOPRIL20 M1 PO; +METOCLOPRAMIDE10 MG PO; +MIRTAZAPINE15 MG PO; +PANTOPRAZOLE SO40 M1 PO
--- NOTE | 2018-04-09 05:45 | NUR ---
BY EMS STRETCHER TO ROOM 10
[2018-04-09 06:31] LABS: HEMATOCRIT 38.4 % (37.0-47.0); HEMOGLOBIN 11.8 g/dl (12.0-16.0); IMMATURE GRANULOCYTES 0.3 % (0.0-5.0); MEAN CORPUSCULAR HGB 28.9 pG CALC (26.0-32.0); MEAN CORPUSCULAR HGB CONC 30.7 g/L CALC (32.0-36.0); NEUT# 4.38 thou/uL (2.00-7.15); RED BLOOD COUNT 4.09 mill/uL (4.20-5.60); RED CELL DISTRI WIDTH 13.5 % (11.5-15.5)
[2018-04-09 06:33] LABS: MEAN CELL VOLUME 93.9 fL CALC (80.0-100.0)
[2018-04-09 06:41] LABS: AMYLASE 59 u/l (30-110); BILIRUBIN, TOTAL 0.6 mg/dL (0.0-1.4); BUN 22 mg/dL (7-17); BUN/CREATININE RATIO 36 (12-20 (CALC)); CHLORIDE 106 mmol/l (95-108); CREATININE 0.6 mg/dL (0.5-1.0); GFR > 60 ML/MIN (>=60 (CALC)); GFR FOR AFR.AMER. > 60 ML/MIN (>=60 (CALC)); LIPASE 12 u/l (23-300); MAGNESIUM 2.2 mg/dL (1.6-2.3); SODIUM 136 mmol/l (137-146)
--- NOTE | 2018-04-09 06:44 | NUR ---
PATIENT RESTING AWAITING LAB AND RADIOLOGY RESULTS PATIENT DENIES ANY PAIN SOB OR CHEST PAIN AT THIS TIME
[2018-04-09 06:47] LABS: ALBUMIN 4.2 g/dL (3.2-5.0); ALKALINE PHOSPHATASE 136 u/l (38-126); ANION GAP 27 (6-22 (CALC)); CARBON DIOXIDE 8 mmol/l (22-30); ETHYL ALCOHOL < 10 mg/dl (0-30); POTASSIUM 5.1 mmol/l (3.5-5.1); SGOT/AST 61 u/l (14-36); TOTAL PROTEIN 7.4 g/dL (6.3-8.2)
--- NOTE | 2018-04-09 07:21 | NUR ---
REPORT GIVEN TO ICU AND PATIENT TRANSPORTED
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
--- NOTE | 2018-04-09 08:30 | NUR ---
PT DOZING IN BED, AROUSES TO VERBAL STIMULI, NO N/V NOTED, CALL BAEZA WITHIN REACH, 22G IN R FA REMAINS SALINE LOCKED, WILL CONTINUE TO MONITOR.
--- NOTE | 2018-04-09 09:40 | NUR ---
PT PLACED IN HALLWAY AND MONITORING EQUIPMENT SUSPENDED FOR CODE BROWN
--- NOTE | 2018-04-09 10:05 | NUR ---
BACK IN ROOM VIA BED, ALL MONITORING EQUIPMENT REINSTATED, BLADDER SCAN COMPLETED POST VOID RESIDUAL OF 300+, 16F HUBER INSERTED USING STERILE TECHNIQUE WITH IMMEDIATE RETURN OF CLOUDY YELLOW URINE WITH SEDIMENT NOTED APPROX 200ML, CATH SECURITY DEVICE PLACED ON R THIGH, PT TOLERATED WELL.
[2018-04-09 10:24] LABS: BUN 21 mg/dL (7-17); BUN/CREATININE RATIO 34 (12-20 (CALC)); CHLORIDE 111 mmol/l (95-108); CREATININE 0.6 mg/dL (0.5-1.0); GFR > 60 ML/MIN (>=60 (CALC)); GFR FOR AFR.AMER. > 60 ML/MIN (>=60 (CALC)); POTASSIUM 4.5 mmol/l (3.5-5.1); SODIUM 139 mmol/l (137-146)
[2018-04-09 10:29] LABS: ANION GAP 22 (6-22 (CALC)); CARBON DIOXIDE 11 mmol/l (22-30)
[2018-04-09 10:55] LABS: URINE BILIRUBIN - DIPSTICK NEGATIVE (NEGATIVE); URINE BLOOD DIPSTICK TRACE-INTACT (NEGATIVE); URINE COLOR YELLOW; URINE GLUCOSE - DIPSTICK 500 mg/dL (NEGATIVE); URINE KETONE >=80 mg/dL (NEGATIVE); URINE NITRITE - DIPSTICK NEGATIVE (Negative); URINE PH 5.5 (4.5-8.0); URINE PROTEIN - DIPSTICK 30 mg/dL (NEG-TRACE); URINE SPECIFIC GRAVITY 1.025; URINE UROBILINOGEN - DIPSTICK 0.2 E.U./dL (0.2)
[2018-04-09 11:03] LABS: URINE LEUK ESTERASE SMALL (NEGATIVE)
[2018-04-09 11:04] LABS: BARBITURATES NEGATIVE (NEGATIVE); COCAINE NEGATIVE (NEGATIVE); METHADONE NEGATIVE (NEGATIVE); OXCYCODONE NEGATIVE (NEGATIVE); TETRAHYDROCANNABIONOL NEGATIVE (NEGATIVE); TRICYLIC ANTIDEPRESSANTS NEGATIVE (NEGATIVE)
--- NOTE | 2018-04-09 11:08 | NUR ---
IVF STARTED ORDERED, ABG COMPLETED EARLIER AND AWARE OF RESULTS, NO COVERAGE FOR ACCU CHECK 180 PER VERBAL ORDER , CALL BAEZA WITHIN REACH, URINE SPECIMEN SENT EARLIER ORDERED FROM HUBER, WILL CONTINUE TO MONITOR.
[2018-04-09 11:18] LABS: URINE BACTERIA FEW hpf; URINE SQUAMOUS EPITHELIAL CELL FEW EPI/hpf (0-FEW); URINE YEAST MODERATE hpf
--- NOTE | 2018-04-09 12:34 | NUR ---
pt remain dozing in bed, offers no complaints, no s/s of distress noted, call yarbruogh within reach.
--- NOTE | 2018-04-09 14:20 | NUR ---
Pt complains of nausea with some dry heaves noted and emesis earlier of small amount < 100ml bile green emesis, medicated as ordered.
--- NOTE | 2018-04-09 14:56 | NUR ---
pt resting in bed, no new complaints offered, Will continue to monitor.
--- NOTE | 2018-04-09 16:13 | NUR ---
PT CONTINUES TO DOZE DENIES PAIN OR NAUSEA AT THIS TIME, CALL BAEZA WITHIN REACH, VS REMAIN STABLE, WILL CONTINUE TO MONITOR.
--- NOTE | 2018-04-09 18:29 | NUR ---
PT CONTINUES DOZING, OCCASIONAL NAUSEA WITH SMALL AMOUNTS OF EMESIS, CALL BAEZA WITHIN REACH, NPO STATUS MAINTAINED, WILL CONTINUE TO MONITOR
--- NOTE | 2018-04-09 19:00 | NUR ---
REPORT FROM NICK GLASGOW. ASSUMED PT. CARE.
--- NOTE | 2018-04-09 19:15 | NUR ---
MD CONTACTED ABOUT NO HS COVERAGE. BMP ORDERED PER PHYSICIAN ORDERS ALONG WITH HS COVERAGE.
--- NOTE | 2018-04-09 19:25 | NUR ---
PT. FOUND AWAKE, ALERT, ORIENTED X 3. APPEARS UNCOMFORTABLE. N/V OF BILIOUS MATERIAL AT THIS TIME. WILL MEDICATE ORDERED. RESPS EVEN, UNLABORED. ODOR OF KETONES NOTED ON BREATH. PT. STATES LAST BM WAS A COUPLE OF DAYS AGO. DENIES COMPLAINTS OF ABD PAIN, STATES NORMAL FOR HER. PULSES INTACT. PT. APPEARS CACHECTIC. LUNGS CLEAR TO AUSCULTATIONS. BOWEL SOUNDS PRESENT. NO EDEMA NOTED. REORIENTED TO CALL LIGHT SYSTEM AND NOTIFIED TO UTILIZE IT IF SHE HAD ANY NEEDS. VERBALIZES UNDERSTANDING. WILL CONTINUE TO MONITOR CLOSELY.
--- NOTE | 2018-04-09 19:31 | NUR ---
LAB AT BEDSIDE AT THIS TIME. PT. NAUSEATED. WILL MEDICATE ORDERED.
--- NOTE | 2018-04-09 19:42 | NUR ---
PT. PROVIDED WITH NEW EMESIS BAG AND ASSISTED WITH WARM CLOTH TO CLEANSE HER FACE. PROVIDED WITH WARM BLANKET AND UPDATED ON PLAN OF CARE.
[2018-04-09 19:52] LABS: ANION GAP 26 (6-22 (CALC)); BUN 17 mg/dL (7-17); BUN/CREATININE RATIO 28 (12-20 (CALC)); CHLORIDE 111 mmol/l (95-108); CREATININE 0.6 mg/dL (0.5-1.0); GFR > 60 ML/MIN (>=60 (CALC)); GFR FOR AFR.AMER. > 60 ML/MIN (>=60 (CALC)); POTASSIUM 4.4 mmol/l (3.5-5.1); SODIUM 140 mmol/l (137-146)
[2018-04-09 20:00] LABS: CARBON DIOXIDE 7 mmol/l (22-30)
--- NOTE | 2018-04-09 20:15 | NUR ---
NEW ORDERS RECEIVED FROM DR. PARMAR. WILL MEDICATE AND TREAT ACCORDINGLY. PT. STATUS REMAINS UNCHANGED.
--- NOTE | 2018-04-09 23:08 | NUR ---
ACCUCHECK NOW 171. INSULIN DRIP DECREASED TO 2 UNITS/HR.
--- NOTE | 2018-04-09 23:11 | NUR ---
CONTINUES WITH BILIOUS EMESIS AT THIS TIME. LINENS CHANGED AND PT. ASSISED TO CLEAN UP AT THIS TIME. DENIES OTHER COMPLAINTS OR NEEDS. WILL CONTINUE TO TITRATE INSULIN DRIP ORDERED.
[2018-04-10] VITALS (15 sets, daily range): BP systolic 135–174; BP diastolic 67–87
--- NOTE | 2018-04-10 00:20 | NUR ---
ACCUCHECK NOW 173. INSULIN DRIP UNCHANGED AT 2 UNIT/HR.
--- NOTE | 2018-04-10 01:18 | NUR ---
ACCUCHECK NOW 187. INSULIN DRIP UNCHANGED AT THIS TIME. REMAINS AT 2 UNIT/HR. PT. REPORTS IMPROVEMENT IN NAUSEA AT THIS TIME WELL.
[2018-04-10 02:30] LABS: ANION GAP 22 (6-22 (CALC)); BUN 12 mg/dL (7-17); BUN/CREATININE RATIO 28 (12-20 (CALC)); CARBON DIOXIDE 10 mmol/l (22-30); CHLORIDE 116 mmol/l (95-108); CREATININE 0.4 mg/dL (0.5-1.0); GFR > 60 ML/MIN (>=60 (CALC)); GFR FOR AFR.AMER. > 60 ML/MIN (>=60 (CALC)); SODIUM 144 mmol/l (137-146)
--- NOTE | 2018-04-10 03:05 | NUR ---
PT. C/O NAUSEA STARTING TO RETURN. ACCUCHECK NOW 182. CONTINUES ON INSULIN DRIP AT 2 UNIT/HR. WILL CONTINUE TO CLOSELY MONITOR.
--- NOTE | 2018-04-10 04:15 | NUR ---
INSULIN DRIP CONTINUES TO INFUSE AT 2 UNITS/HR. IV FLUIDS D5NS RUNNING AT 125/HR PER ORDERS. PT. CONTINUES WITH INTERMITTENT N/V. WILL CONTINUE TO MEDICATE ORDERED.
--- NOTE | 2018-04-10 05:27 | NUR ---
ACCUCHECK NOW 152. CONTINUES WITH INSULIN DRIP AT 2 UNITS/HR. WILL CONTINUE TO CLOSELY MONITOR.
[2018-04-10 05:48] LABS: HEMOGLOBIN 11.5 g/dl (12.0-16.0); IMMATURE GRANULOCYTES 0.5 % (0.0-5.0); MEAN CORPUSCULAR HGB 28.9 pG CALC (26.0-32.0); MEAN CORPUSCULAR HGB CONC 32.9 g/L CALC (32.0-36.0); NEUT# 9.3 thou/uL (2.00-7.15); RED BLOOD COUNT 3.98 mill/uL (4.20-5.60); RED CELL DISTRI WIDTH 13.2 % (11.5-15.5)
[2018-04-10 05:50] LABS: MEAN CELL VOLUME 87.9 fL CALC (80.0-100.0)
[2018-04-10 06:12] LABS: ALBUMIN 3.7 g/dL (3.2-5.0); ALKALINE PHOSPHATASE 112 u/l (38-126); BILIRUBIN, TOTAL 0.5 mg/dL (0.0-1.4); BUN 10 mg/dL (7-17); BUN/CREATININE RATIO 24 (12-20 (CALC)); CHLORIDE 116 mmol/l (95-108); CREATININE 0.4 mg/dL (0.5-1.0); GFR > 60 ML/MIN (>=60 (CALC)); GFR FOR AFR.AMER. > 60 ML/MIN (>=60 (CALC)); MAGNESIUM 1.9 mg/dL (1.6-2.3); POTASSIUM 3.6 mmol/l (3.5-5.1); SGOT/AST 34 u/l (14-36); SODIUM 141 mmol/l (137-146); TOTAL PROTEIN 7.1 g/dL (6.3-8.2)
[2018-04-10 06:16] LABS: ANION GAP 15 (6-22 (CALC)); CARBON DIOXIDE 14 mmol/l (22-30)
--- NOTE | 2018-04-10 07:15 | NUR ---
PT RESTING INBED, ALERT AND ORIENTED, DOZING FREQUENTLY BUT AROUSES TO VERBAL STIMULI, STATES NAUSEA MUCH IMPROVED BUT STILL PRESENT WILL MEDICATE OPRDERED, AM ASSESSMENT COMPLETED SEE INTERVENTIONS, BP STABLE PT AFEBRILE, TELE CONTINUES READING SR RATE IN THE 80'S, BP STABLE, NO EDEMA, HUBER CATH INTACT DRAINING CLOUDY YELLOW URINE, CATH SECURITY DEVICE INTACT ON R UPPER THIGH, NO SOB OR DISTRESS NOTED, LUNGS CLEAR, INSULIN GTT CONTINUES PER PROTOCOL, AND IVF INFUSING AT PRESCRIBED RATE, SAFETY MEASURES REINFORCED,WILL CONTINUE TO MONITOR.
--- NOTE | 2018-04-10 09:01 | NUR ---
ACCU CHECK HOURLY COMPLETED INSULIN GTT PER PROTOCOL, CALL BAEZA WITHIN REACH.
--- NOTE | 2018-04-10 10:10 | NUR ---
INSULIN GTT STOPPED AND NEW IVF STARTED PER VERBAL ORDER .
--- NOTE | 2018-04-10 11:30 | NUR ---
PT RESTING IN BED, DOZES FREQUENTLY CONTINUES TO DNEY NAUSEA, TOLERATED PO MEDICATIONS W/O INCIDENT, WITH SIPS OF DIET MARTHA SHERLY, WILL CONTINUE TO MONITOR
--- NOTE | 2018-04-10 12:55 | NUR ---
PT TO RADIOLOGY FOR ULTRASOUND VIA WHEELCHAIR. PAZ PASS WITH PATIENT
--- NOTE | 2018-04-10 13:26 | NUR ---
PT BACK FROM ULTRASOUND,TOLERATED WELL.
--- NOTE | 2018-04-10 13:30 | NUR ---
LOW SODIUM CHICKEN BROTH PROVIDED, WILL MONITOR TOLERANCE
--- NOTE | 2018-04-10 14:41 | NUR ---
PT TOLERATED 1/2 OF CHICKEN BROTH, RESTING IN BED, OFFERS NO NEW COMPLAINTS, CALL BAEZA WITHIN REACH, WILL CONTINUE TO MONITOR.
--- NOTE | 2018-04-10 16:42 | NUR ---
PT RESTING IN BED, OFFERS NO NEW COMPLAINTS, IVF CONTINUE AT PRESCRIBED RATE, WILL CONTINUE TO MONITOR.
--- NOTE | 2018-04-10 18:11 | NUR ---
PT CONTINUES DOZING IN BED, AROUSES TO VERBAL STIMULI BUT SPENT MOST TIME NDER COVERS WITH BLANKET PULLED UP OVER HER HEAD, CALL BAEZA WITHIN REACH, CONTINUES TO DENY NAUSEA, WILL CONTINUE TO MONITOR.
--- NOTE | 2018-04-10 19:40 | NUR ---
awakens easily. denies distress. lunchroom monitor shows sinus rhythm. #22 rfa ns w bicarb infusing @ 75cchr. refused po intake. davila cath in place. urine clear yellow. fall precautions cont.
--- NOTE | 2018-04-10 22:00 | NUR ---
eyes closed. no distress. cardiac rehabilitation specialist shows sinus rhythm.
[2018-04-11] VITALS (11 sets, daily range): BP systolic 151–185; BP diastolic 80–96
--- NOTE | 2018-04-11 00:01 | NUR ---
eyes closed. no distress. davila draininh well.
--- NOTE | 2018-04-11 02:00 | NUR ---
resting quietly. resps even & unlabored. no apparent fistress.
--- NOTE | 2018-04-11 04:30 | NUR ---
lab here. blood drawn.
[2018-04-11 04:58] LABS: HEMATOCRIT 36.5 % (37.0-47.0); HEMOGLOBIN 11.9 g/dl (12.0-16.0); IMMATURE GRANULOCYTES 0.4 % (0.0-5.0); MEAN CELL VOLUME 88.2 fL CALC (80.0-100.0); MEAN CORPUSCULAR HGB 28.7 pG CALC (26.0-32.0); MEAN CORPUSCULAR HGB CONC 32.6 g/L CALC (32.0-36.0); NEUT# 8.27 thou/uL (2.00-7.15); RED BLOOD COUNT 4.14 mill/uL (4.20-5.60); RED CELL DISTRI WIDTH 13.8 % (11.5-15.5)
[2018-04-11 05:14] LABS: ALBUMIN 3.7 g/dL (3.2-5.0); ALKALINE PHOSPHATASE 119 u/l (38-126); ANION GAP 22 (6-22 (CALC)); BILIRUBIN, TOTAL 1.1 mg/dL (0.0-1.4); BUN 12 mg/dL (7-17); BUN/CREATININE RATIO 27 (12-20 (CALC)); CARBON DIOXIDE 14 mmol/l (22-30); CHLORIDE 108 mmol/l (95-108); CREATININE 0.4 mg/dL (0.5-1.0); GFR > 60 ML/MIN (>=60 (CALC)); GFR FOR AFR.AMER. > 60 ML/MIN (>=60 (CALC)); MAGNESIUM 1.9 mg/dL (1.6-2.3); POTASSIUM 3.5 mmol/l (3.5-5.1); SGOT/AST 31 u/l (14-36); SODIUM 140 mmol/l (137-146)
--- NOTE | 2018-04-11 06:04 | NUR ---
no acute change in condition. laborer carpentry dock shows sinus rhythm.
--- NOTE | 2018-04-11 06:30 | NUR ---
RECIEVED REPORT FROM SILAS PASCAL. ASSUMED PT CARE.
--- NOTE | 2018-04-11 07:00 | NUR ---
PT A&OX3, ABLE TO MAKE NEEDS KNOWN. PT DROWSY, RESTING IN BED. DENIES PAIN, SOB OR DISTRESS AT THIS TIME. ACCUCHECK 298, COVERAGE ORDERED, SEE MAR. PT REMAINS SR ON TELEMETRY, HR 96. RESPIRATIONS EVEN/UNLABORED. LS CLEAR THROUGHOUT. ABDOMEN SOFT, NON-TENDER, BSX4. PT REPORTS LAST BM 04-09-18. REMAINS NPO WITH SIPS OF FLUIDS DUE TO HX OF N/V. PT DENIES N/V AT THIS TIME. HUBER REMAINS PATENT, DRAINING CLEAR YELLOW URINE TO BSD, SKIN CDI. 22G TO RFA INFUSING 1/2 NS W/BICARB @75ML/HR. NON S/S OF INFILTRATION OR REDNESS AT SITE. CALL LIGHT IN REACH. WILL MONITOR.
--- NOTE | 2018-04-11 09:30 | NUR ---
ASSISTED PT TO BSC. PT BATHED SELF, COMPLETE LINEN CHANGE DONE. HUBER CARE COMPLETED. PT TOLERATED WELL. PT ASSISTED BACK TO BED. CALL LIGHT IN REACH. WILL MONITOR.
--- NOTE | 2018-04-11 10:00 | NUR ---
FAMILY AT BEDSIDE FOR VISIT, PT ASKED THEM TO LEAVE STATED " I DON'T WANT YOU SEEING ME LIKE THIS, I'M TOO SICK. " FAMILY THEN LEFT. PT RESTING IN BED, WARM BLANKET GIVEN PER PT REQUEST. PT DENIES PAIN, SOB STATING, "I'M JUST REALLY COLD" . CALL LIGHT IN REACH, WILL MONITOR.
--- NOTE | 2018-04-11 10:30 | NUR ---
AT THE BEDSIDE FOR ASSESSMENT AND TO DISCUSS PLAN OF CARE. NEW ORDERS RECIEVED.
--- NOTE | 2018-04-11 10:44 | NUR ---
NERY BELCHER AT BEDSIDE FOR ABG.
--- NOTE | 2018-04-11 11:05 | NUR ---
PT MEDICATED WITH TYLENOL FOR TEMP 99.7 AND ZOFRAN FOR NAUSEA PER DR. LIN. FINISH BAG OF BICARB THAT IS HANGING NOW THEN, SWITCH TO PO FORM.
--- NOTE | 2018-04-11 11:10 | NUR ---
PHARMACY CONSULT FOR COMPATABILTY OF BICARB AND ROCEPHIN. COMPATIBLE
--- NOTE | 2018-04-11 11:13 | NUR ---
CXR AT BEDSIDE.
--- NOTE | 2018-04-11 11:15 | NUR ---
LAB AT BEDSIDE FOR BLOOD CULTURES.
--- NOTE | 2018-04-11 11:38 | NUR ---
PT FAMILY, CADE CALLED. PT RESTING IN BED.
--- NOTE | 2018-04-11 13:00 | NUR ---
SON AT BEDSIDE, LUNCH TRAY SET UP. FAMILY HELPED PT WITH SOUP. PT TOLERATED WELL.
--- NOTE | 2018-04-11 15:08 | NUR ---
PT RESTING IN BED WITH EYES CLOSED. RESPIRATIONS EVEN/UNLABORED. SA02@100%RA. NO COMPLAINTS VERBALIZED AT THIS TIME. CALL LIGHT IN REACH. WILL MONITOR.
--- NOTE | 2018-04-11 16:00 | NUR ---
PT RESTING IN BED WITH EYES CLOSED, OFFERS NO COMPLAINTS AT THIS TIME. RESPIRATIONS EVEN/UNLABORED. CALL LIGHT IN REACH, WILL MONITOR.
--- NOTE | 2018-04-11 17:30 | NUR ---
DIETARY ON UNIT, DINNER TRAY SET UP.
--- NOTE | 2018-04-11 18:23 | NUR ---
PT RESTING IN BED WITH EYS CLOSED, RESPIRATIONS EVEN/UNLABORED. CALL LIGHT IN REACH, WILL MONITOR.
--- NOTE | 2018-04-11 19:00 | NUR ---
awakens easily. denies n/v. environmental monitoring technician shows sinus rhythm. #22 saline lock rfa. refused po fluids. davila cath in place. urine clear yellow. fall precautions cont.
--- NOTE | 2018-04-11 22:00 | NUR ---
eyes closed. no distress. hospice admitting clerk shows sinus rhythm.
[2018-04-12] VITALS (11 sets, daily range): BP systolic 104–167; BP diastolic 60–84
--- NOTE | 2018-04-12 00:01 | NUR ---
resting quietly. no distress. shelter monitor shows sinus rhythm.
--- NOTE | 2018-04-12 02:00 | NUR ---
eyes closed. no distress. court monitor shows sinus rhythm.
--- NOTE | 2018-04-12 04:40 | NUR ---
lab here. blood drawn.
[2018-04-12 05:45] LABS: HEMATOCRIT 35.4 % (37.0-47.0); HEMOGLOBIN 11.5 g/dl (12.0-16.0); IMMATURE GRANULOCYTES 0.5 % (0.0-5.0); MEAN CELL VOLUME 88.5 fL CALC (80.0-100.0); MEAN CORPUSCULAR HGB 28.8 pG CALC (26.0-32.0); MEAN CORPUSCULAR HGB CONC 32.5 g/L CALC (32.0-36.0); NEUT# 4.94 thou/uL (2.00-7.15); RED CELL DISTRI WIDTH 13.6 % (11.5-15.5)
[2018-04-12 06:00] LABS: ALBUMIN 3.2 g/dL (3.2-5.0); ALKALINE PHOSPHATASE 107 u/l (38-126); ANION GAP 22 (6-22 (CALC)); BILIRUBIN, TOTAL 1.2 mg/dL (0.0-1.4); BUN 15 mg/dL (7-17); BUN/CREATININE RATIO 32 (12-20 (CALC)); CARBON DIOXIDE 14 mmol/l (22-30); CHLORIDE 104 mmol/l (95-108); CREATININE 0.5 mg/dL (0.5-1.0); GFR > 60 ML/MIN (>=60 (CALC)); GFR FOR AFR.AMER. > 60 ML/MIN (>=60 (CALC)); POTASSIUM 3.4 mmol/l (3.5-5.1); SGOT/AST 33 u/l (14-36); SODIUM 136 mmol/l (137-146); TOTAL PROTEIN 6.5 g/dL (6.3-8.2)
--- NOTE | 2018-04-12 06:50 | NUR ---
REPORT RECVD FROM SILAS PASCAL AT START OF SHIFT.
--- NOTE | 2018-04-12 08:00 | NUR ---
PT DOWSY. A&Ox3. EYES PERRLA. BREATHING EVEN/UNLABORED, LUNG SOUNDS CLEAR. PULSES STRONG x4. NSR ON TELE. AYALA. NO EDEMA. ABD SOFT, HYPOACTIVE BS. DENIES PAIN.
--- NOTE | 2018-04-12 08:29 | NUR ---
PT FEEDING SELF JELLO , DRINKING ENSURE, DRANK WHOLE BOWL OF SOUP (POURED INTO A CUP). PT REPOSITIONED IN HIGH FOWLERS.
--- NOTE | 2018-04-12 09:26 | NUR ---
DR LIN @BEDSIDE WITH PT.
--- NOTE | 2018-04-12 09:43 | NUR ---
PT AMBULATED TO RECLINER WITH MINIMAL ASSISTANCE PER PTS REQUEST AFTER BM. SITTING UP IN CHAIR, WATCHING TV.
--- NOTE | 2018-04-12 09:50 | NUR ---
DR LIN @BEDSIDE. HE WILL PLACE TRANSFER ORDERS TO [facility].
--- NOTE | 2018-04-12 10:07 | NUR ---
REPORT GIVEN TO MURIEL ON [facility].
--- NOTE | 2018-04-12 10:24 | NUR ---
PT TRANSPORTED TO [facility] ROOM 289 BY WC WITH TELE & ALL HER BELONGINGS IN STABLE CONDITION.
--- NOTE | 2018-04-12 10:30 | NUR ---
PT ARRIVED TO [facility] VIA WHEELCHAIR ACCOMPANIED BY ICU NURSE. PT ALERT AND ORIENTED X3, REQUESTS TO SIT IN RECLINER AT BEDSIDE. ORIENTED TO ROOM AND CALL LIGHT, PT VOICES NO NEEDS OR COMPLAINTS AT THIS TIME. CALL LIGHT IN REACH,CONTINUE TO MONITOR.
--- NOTE | 2018-04-12 12:32 | NUR ---
ROCEPHIN INFUSION COMPLETED, IV SL. PT IN BED, VOICES NO NEEDS OR COMPLAINTS AT THIS TIME. CALL LIGHT IN REACH,CONTINUE TO MONITOR.
--- NOTE | 2018-04-12 19:00 | NUR ---
RECEIVED REPORT FROM DAY SHIFT NURSE. PT RESTING IN BED WITH EYES CLOSED, HEAD COVERED WITH A TOWEL. NO S/S OF DISTRESS.CALL BAEZA IN REACH. WILL CONTINUE TO MONITOR.
--- NOTE | 2018-04-12 21:30 | NUR ---
PT RESTING IN BED WITH TOWEL OVER HER HEAD. ARROUSABLE TO SPEECH. ASSESMENT COMPLETED AT THIS TIME(SEE INTERVENTIONS) LUNGS CLEAR, BS ACTIVE, HEART SOUNDS NORMAL, NO EDEMA NOTED. IV FLUSHES WELL. HUBER DRAINING TO GRAVITY CLEAR YELLOW. NO COMPLAINTS OR NEEDS AT THIS TIME. CALL BAEZA IN REACH. WILL CONTINUE TO MONITOR.
[2018-04-13 00:21] VITALS: BP 126/77
--- NOTE | 2018-04-13 03:26 | NUR ---
PT RESTING IN BED, ASKED IF BED WAS MOVING, INFORMATION MANAGEMENT OFFICER ASKED PT IF SHE WAS DIZZY, SHE STATED NO AND ASKED IF BED WAS MOVING AGAIN, PT REASSURED IT WAS NOT. BS AND VS WNL. HUBER DRAINING TO GRAVITY. CALL BAEZA IN REACH. WILL CONTINUE TO MONITOR.
--- NOTE | 2018-04-13 04:00 | NUR ---
PT RESTING IN BED APPEARS TO BE ASLEEP AT THIS TIME. HUBER DRAINING TO GRAVITY. NO S/S OF DISTRESS. CALL BAEZA IN REACH. WILL CONTINUE TO MONITOR.
[2018-04-13 04:55] LABS: HEMATOCRIT 35.8 % (37.0-47.0); HEMOGLOBIN 11.9 g/dl (12.0-16.0); IMMATURE GRANULOCYTES 0.2 % (0.0-5.0); MEAN CELL VOLUME 86.3 fL CALC (80.0-100.0); MEAN CORPUSCULAR HGB 28.7 pG CALC (26.0-32.0); MEAN CORPUSCULAR HGB CONC 33.2 g/L CALC (32.0-36.0); NEUT# 2.64 thou/uL (2.00-7.15); RED BLOOD COUNT 4.15 mill/uL (4.20-5.60); RED CELL DISTRI WIDTH 13.2 % (11.5-15.5)
[2018-04-13 04:57] VITALS: BP 142/74
[2018-04-13 05:27] LABS: ALBUMIN 3.2 g/dL (3.2-5.0); ALKALINE PHOSPHATASE 107 u/l (38-126); ANION GAP 16 (6-22 (CALC)); BUN 19 mg/dL (7-17); BUN/CREATININE RATIO 45 (12-20 (CALC)); CARBON DIOXIDE 20 mmol/l (22-30); CHLORIDE 104 mmol/l (95-108); CREATININE 0.4 mg/dL (0.5-1.0); GFR > 60 ML/MIN (>=60 (CALC)); GFR FOR AFR.AMER. > 60 ML/MIN (>=60 (CALC)); MAGNESIUM 2.1 mg/dL (1.6-2.3); POTASSIUM 3.4 mmol/l (3.5-5.1); SGOT/AST 25 u/l (14-36); SODIUM 137 mmol/l (137-146); TOTAL PROTEIN 6.3 g/dL (6.3-8.2)
[2018-04-13 08:01] VITALS: BP 158/88
--- NOTE | 2018-04-13 08:12 | NUR ---
REPORT RECEIVED FROM SILAS LUCERO. PT SITTING UP IN BED TRYING TO EAT BREAKFAST; PT STATED " I FEEL LIKE THE ROOM IN MOVING AROUND." ASSURED PT THE ROOM IS NOT MOVING; PT A/OX3; NO DISTRESS NOTED; TELE IN PLACE; HUBER PATENT DRAINING TO GRAVITY CLEAR, YELLOW URINE; IV PATENT, SITE APPEARS HEALTHY; CALL BAEZA IN REACH; POC DISCUSSED; PT VERBALIZED UNDERSTANDING; WILL CONTINUE TO MONITOR.
--- NOTE | 2018-04-13 10:34 | NUR ---
INFORMED DR LIN OF PT'S CONCERNS OF BEING DIZZY. BED ALARM ATTACH TO PT. PT INSTURCTED TO CALL FOR ASISTANCE;
--- NOTE | 2018-04-13 10:46 | NUR ---
DR LIN AT BEDSIDE TO DISCUSS POC; FAMILY MEMBER IN ROOM.
[2018-04-13 11:35] VITALS: BP 121/71
--- NOTE | 2018-04-13 13:58 | NUR ---
PT LAYING IN BED; ASSISTED PT WITH ORAL CARE; OBTAIN UA FROM HUBER CATHETER; MEDICATED PER EMAR; PT VOICED NO CONCERNS; CALL BAEZA IN REACH; AND BED ALARM IN PLACE; HUBER DRAINING TO GRAVITY;
[2018-04-13 14:15] LABS: URINE BILIRUBIN - DIPSTICK SMALL (NEGATIVE); URINE BLOOD DIPSTICK NEGATIVE (NEGATIVE); URINE COLOR YELLOW; URINE GLUCOSE - DIPSTICK >=1000 mg/dL (NEGATIVE); URINE KETONE 40 mg/dL (NEGATIVE); URINE LEUK ESTERASE NEGATIVE (Negative); URINE NITRITE - DIPSTICK NEGATIVE (Negative); URINE PH 6.5 (4.5-8.0); URINE PROTEIN - DIPSTICK TRACE mg/dL (NEG-TRACE)
[2018-04-13 14:16] LABS: URINE CLARITY SL CLOUDY
[2018-04-13 15:45] VITALS: BP 114/63
--- NOTE | 2018-04-13 15:45 | NUR ---
PT SITTING U IN RECLINER; FAMILY MEMBER AT BEDSIDE; PT STATED "ROOM IS SPINNING" REMINDED PT WHAT DR LIN EXPLAINED TOLD HER REGARDING HER MEDS; PT STATED SHE HAS NO PAIN; HUBER PATENT; TELE IN PLACE; WILL CONTINUE TO MONITOR.
[2018-04-13 19:41] VITALS: BP 114/71
--- NOTE | 2018-04-13 19:48 | NUR ---
ASSESSMENT IS COMPLETED: PT IS RELAXING IN BED WAITING TO GET A SHOWER. IV SITE IS FREE FROM REDNESS OR EDEMA. HR IS REG,PULSES ARE STRONG X4, ABD IS SOFT WITH ACTIVE BS. BREATH SOUNDS ARE CLEAR, BILATERALLY, NO C/O SOB., HUBER INTACT DRAINING CLEAR YELLOW URINE. TELE MONITOR IN PLACE. CALL BAEZA WITHIN REACH. CONITNUE TO OBSERVE AND MONITOR.
--- NOTE | 2018-04-14 00:45 | NUR ---
PT IS RESTING IN BED WITH NO DISTRESS NOTED. IV SITE IS FREE FROM REDNESS OR EDEMA.
[2018-04-14 00:54] VITALS: BP 105/68
[2018-04-14 04:30] VITALS: BP 145/87
--- NOTE | 2018-04-14 04:42 | NUR ---
PT IS RESTING WITH EYES CLOSED IV SITE IS FREE FROM REDNESS OR EDEMA
[2018-04-14 06:13] LABS: HEMATOCRIT 33.6 % (37.0-47.0); HEMOGLOBIN 11.2 g/dl (12.0-16.0); IMMATURE GRANULOCYTES 0.3 % (0.0-5.0); MEAN CELL VOLUME 85.1 fL CALC (80.0-100.0); MEAN CORPUSCULAR HGB 28.4 pG CALC (26.0-32.0); MEAN CORPUSCULAR HGB CONC 33.3 g/L CALC (32.0-36.0); NEUT# 1.7 thou/uL (2.00-7.15); RED BLOOD COUNT 3.95 mill/uL (4.20-5.60)
--- NOTE | 2018-04-14 06:13 | NUR ---
PT IS REFUSING ANTIVERT, STATED" IT MAKES ME SWIM HEADED", CONTINUE TO OBSERVE AND MONITOR.
[2018-04-14 06:36] LABS: ALBUMIN 2.9 g/dL (3.2-5.0); ALKALINE PHOSPHATASE 103 u/l (38-126); ANION GAP 15 (6-22 (CALC)); BILIRUBIN, TOTAL 0.9 mg/dL (0.0-1.4); BUN 18 mg/dL (7-17); BUN/CREATININE RATIO 55 (12-20 (CALC)); CARBON DIOXIDE 23 mmol/l (22-30); CHLORIDE 97 mmol/l (95-108); CREATININE 0.3 mg/dL (0.5-1.0); GFR > 60 ML/MIN (>=60 (CALC)); GFR FOR AFR.AMER. > 60 ML/MIN (>=60 (CALC)); POTASSIUM 3.5 mmol/l (3.5-5.1); SGOT/AST 37 u/l (14-36); SODIUM 131 mmol/l (137-146); TOTAL PROTEIN 5.8 g/dL (6.3-8.2)
--- NOTE | 2018-04-14 07:00 | NUR ---
SHIFT REPORT FROM JIN SPEARS SLEEPING WITH HEAD COVERED, BREATHING EVEN AND NON-LABORED, NO SIGN DISCOMFORT, TELE MONITOR IN PLACE, HUBER CATHETER IN PLACE WITH YELLOW URINE, CALL BAEZA IN REACH.
[2018-04-14 07:51] VITALS: BP 136/76
[2018-04-14 11:57] VITALS: BP 116/62
--- NOTE | 2018-04-14 12:00 | NUR ---
ASSISTED TO BR, GAIT VERY UNSTEADY AND PT C/O DIZZINESS, ASSISTED BACK TO ROOM AND SETTLED IN RECLINER, BODY ALARM PLACED, CALL BAEZA IN REACH.
--- NOTE | 2018-04-14 13:00 | NUR ---
HUBER CATETER REMOVED WITHOUT DIFFICULTY, PT URINATED 500 ML REE URINE WITHOUT DIFFICULTY (1ST URINE AFTER CATHETER REMOVAL)
[2018-04-14 16:13] VITALS: BP 103/56
[2018-04-14 19:12] VITALS: BP 97/63
--- NOTE | 2018-04-14 21:35 | NUR ---
PT MEDICATED ORDERS PROVIDE, ASSESSED, LUNG SOUNDS CLEAR, ABD SOFT/NON-TENDER, LOCX3, NEURO AND SKIN INTACT, NO NOTED EDEMA, BLOOD SUGAR 147, NO INSULIN ADMINISTERED. NIGHTTIME SNACK PROVIDED. PT ASSISTED TO BEDSIDE COMMODE DUE TO WEAKNESS/200CC OF CLEAR YELLOW URINE EMPTIED. POC DISCUSSED W/PT AND PT ENCOURAGED TO CALL IF ANY NEEDS ARISE. CALL LIGHT AT SIDE.
[2018-04-15] VITALS (7 sets, daily range): BP systolic 75–143; BP diastolic 46–76
--- NOTE | 2018-04-15 02:02 | NUR ---
PT SLEEPING AT THIS TIME. CALL LIGHT AT BEDSIDE. NO S/S OF DISTRESS NOTED.
--- NOTE | 2018-04-15 07:43 | NUR ---
PT BS 405, PT MEDICATED SLIDING SCALE ORDERS PROVIDE AND STAT BLOOD GLUCOSE ORDERED, PHYSICIAN NOTIFIED.
--- NOTE | 2018-04-15 07:45 | NUR ---
REPORT RECEIVED FROM NICK THOMPSON;PT APPEARS TO BE SLEEPING IN SEMI FOWLERS POSITION;NO S/S OF DISTRESS NOTED;RESPIRATIONS EVEN AND UNLABORED ON RA;TELE MONITORING IN PLACE;ALL SAFETY PRECAUTIONS IN PLACE WITH BED IN THE LOWEST POSITION AND CALL LIGHT IN REACH;WILL CONTINUE TO MONITOR
--- NOTE | 2018-04-15 08:10 | NUR ---
PT RESTING IN SEMI FOWLERS POSITION;VS OBTAINED AND ASSESSMENT COMPLETED;PT DENIES ANY CURRENT PAIN OR DISCOMFORTS,PAIN SCALE AND REPORTING EDUCATED;RESPIRATIONS EVEN AND UNLABORED,SHALLOW ON RA;ABDOMEN SOFT ON PALPATION AND ACTIVE IN ALL 4 QUADRANTS;WEAK PEDAL PULSES;TELE MONITORING IN PLACE;#20G TO LEFT FOREARM FLUSHED AND PATENT,SITE APPEARS HEALTHY;PO FLUIDS ENCOURAGED AND PT VERBALIZES UNDERSTANDING;ALL SAFETY PRECAUTIONS REINFORCED WITH BED IN THE LOWEST POSITION AND CALL LIGHT IN REACH;WILL CONTINUE TO MONITOR
--- NOTE | 2018-04-15 09:30 | NUR ---
AT BEDSIDE DISCUSSING POC INCLUDING PLACEMENT TO A REHAB.
--- NOTE | 2018-04-15 11:50 | NUR ---
PT OOB RESTING IN RECLINER AFTER A SHOWER;ALERT AND ORIENTED X3;PT DENIES ANY CURRENT PAIN OR DIZZINESS;RESPIRATIONS EVEN AND UNLABORED ON RA;TELE MONITORING IN PLACE;PT ACCUCHECK 207, COVERED WITH NOVOLOG SLIDING SCALE PER ORDER;PT EDUCATED ON IV SITE EXPIRATION SITE AND REFUSES SITE CHANGE AT THIS TIME;#20G TO RIGHT FOREARM REMAINS PATENT;PT DENIES ANY CURRENT NEEDS AND IS INSTRUCTED TO CALL FOR ASSISTANCE IF NEEDED;FALL PRECAUTIONS REMAIN IN PLACE WITH CALL LIGHT IN REACH;WILL CONTINUE TO MONITOR
--- NOTE | 2018-04-15 13:50 | NUR ---
PT OOB RESTING IN RECLINER.MULTIPLE MANUAL BP TAKEN BY WESLEY GORDON RN AND HERNANDEZRN; BP 75/47 HR 78, PT ASYMPTOMATIC AT THIS TIME STATING "IM JUST COLD"; NOTIFIED ON HYPOTENSION AND NEW ORDERS RECEIVED;WILL CONTINUE TO MONITOR
--- NOTE | 2018-04-15 16:15 | NUR ---
PT OOB RESTING IN RECLINER;RESPIRATIONS EVEN AND UNLABORED ON RA;IV SITE TO RIGHT FOREARM PATENT;PT DENIES ANY CURRENT PAIN OR NEEDS;CURRENT BP 128/72 HR 72;TELE MONITORING IN PLACE;ALL SAFETY PRECAUTIONS REINFORCED;ENCOURAGED PT TO CALL FOR ASSISTANCE IF NEEDED;CALL LIGHT IN REACH;WILL CONTINUE TO MONITOR
--- NOTE | 2018-04-15 19:00 | NUR ---
RECIEVED REPORT FROM DAY NURSE. PT CURLED UP IN RECLINER WATCHING TV. NO NEEDS AT THIS TIME. CALL BAEZA IN REACH. WILL CONTINUE TO MONIROT
--- NOTE | 2018-04-15 21:40 | NUR ---
PT RESTING IN THE BED AT THIS TIME.PT WAKES WITH VERBAL STIMULI. MEDICATED PER ORDER. ASSESMENT COMPLETEDS ATT THIS TIME(SEE INTERVENTIONS). LUNGS ADILSON, HR NORMAL, BOWEL SOUNDS ACTIVE, NO SWELLING OR EDEMA NOTED. IV FLUSHES WELL, NEEDS TO BE CHANGED BUT PT REFUSED. NO NEEDS AT THIS TIME PT IS COLD AND WOULD LIKE THE DOOR CLOSED. CALL BAEZA IN REACH. WILL CONTINUE TO MONITOR.
--- NOTE | 2018-04-15 23:00 | NUR ---
PT VOMITED 250CC. CLEAN AND LINENS CHANGED. MEDICATED PER ORDER FOR NAUSEA.
[2018-04-16 00:15] VITALS: BP 141/75
--- NOTE | 2018-04-16 04:00 | NUR ---
PT RESTING IN BED, COVER IN BLANKETS, AWAKES TO VERBAL STIMULI. CALL BAEZA IN REACH. WILL CONTINUE TO MONITOR.
[2018-04-16 04:19] VITALS: BP 87/52
[2018-04-16 04:43] VITALS: BP 109/64
[2018-04-16 05:44] LABS: HEMATOCRIT 30.2 % (37.0-47.0); HEMOGLOBIN 10.1 g/dl (12.0-16.0); IMMATURE GRANULOCYTES 0.3 % (0.0-5.0); MEAN CORPUSCULAR HGB 29.1 pG CALC (26.0-32.0); MEAN CORPUSCULAR HGB CONC 33.4 g/L CALC (32.0-36.0); NEUT# 1.71 thou/uL (2.00-7.15); RED BLOOD COUNT 3.47 mill/uL (4.20-5.60); RED CELL DISTRI WIDTH 13.1 % (11.5-15.5)
[2018-04-16 06:06] LABS: ALBUMIN 2.7 g/dL (3.2-5.0); ALKALINE PHOSPHATASE 94 u/l (38-126); ANION GAP 21 (6-22 (CALC)); BILIRUBIN, TOTAL 0.5 mg/dL (0.0-1.4); BUN 17 mg/dL (7-17); BUN/CREATININE RATIO 31 (12-20 (CALC)); CARBON DIOXIDE 19 mmol/l (22-30); CHLORIDE 98 mmol/l (95-108); CREATININE 0.5 mg/dL (0.5-1.0); GFR > 60 ML/MIN (>=60 (CALC)); GFR FOR AFR.AMER. > 60 ML/MIN (>=60 (CALC)); MAGNESIUM 2.1 mg/dL (1.6-2.3); SGOT/AST 44 u/l (14-36); SODIUM 134 mmol/l (137-146); TOTAL PROTEIN 5.4 g/dL (6.3-8.2)
--- NOTE | 2018-04-16 07:40 | NUR ---
REPORT RECEIVED FROM SILAS LUCERO;PT OOB RESTING ON COUCH;INTRODUCED SELF TO PT AND POC DISCUSSED;RESPIRATIONS EVEN AND UNLABORED ON RA;PT DENIES ANY CURRENT PAIN OR NEEDS;ACCUCHECK 342, PT COVERED WITH NOVOLOG PER EMAR;TELE MONITORING IN PLACE;PT ENCOURAGED TO CALL FOR ASSISTANCE IF NEEDED;CALL LIGHT IN REACH;WILL CONTINUE TO MONITOR
[2018-04-16 09:18] VITALS: BP 99/78
--- NOTE | 2018-04-16 09:20 | NUR ---
PT OOB RESTING IN RECLINER;VS OBTAINED AND ASSESSMENT COMPLETED;PT DENIES ANY CURRENT PAIN OR DISCOMFORTS;PT REPORTS NAUSEA HAS SUBSIDED SINCE THIS MORNING;RESPIRATIONS EVEN AND UNLABORED ON RA,CLEAR LUNG SOUNDS;ABDOMEN SOFT ON PALPATION AND ACTIVE IN ALL 4 QUADRANTS;WEAK PEDAL PULSES;#20G TO RIGHT FOREARM FLUSHED AND PATENT,SITE APPEARS HEALTHY;PT RE-EDUCATED ON IV SITE EXPIRATION DATE AND REFUSES CHANGE AT THIS TIME;TELE MONITORING IN PLACE;PT DENIES ANY CURRENT NEEDS AND IS INSTRUCTED TO CALL FOR ASSISTANCE IF NEEDED;FALL PRECAUTIONS IN PLACE WITH CALL LIGHT IN REACH;WILL CONTINUE TO MONITOR
--- NOTE | 2018-04-16 11:00 | NUR ---
AT BEDSIDE DISCUSSING POC.
--- NOTE | 2018-04-16 11:25 | NUR ---
PT OOB RESTING IN RECLINER WITH BROTHER AT BEDSIDE;RESPIRATIONS EVEN AND UNLABORED ON RA;PT DENIES ANY CURRENT PAIN OR DISCOMFORTS;TELE MONITORING IN PLACE;ACCUCHECK 174, PT COVERED WITH SLIDING SCALE PER ORDER;PT DENIES ANY CURRENT NEEDS AND IS ENCOURAGED TO CALL FOR ASSISTANCE IF NEEDED;CALL LIGHT IN REACH;WILL CONTINUE TO MONITOR
[2018-04-16 11:26] VITALS: BP 112/78
[2018-04-16 15:30] VITALS: BP 121/72
[2018-04-16] MEDS ORDERED: CARVEDILOL6.25 MG PO (15:44)
[2018-04-16] MEDS ORDERED: LOSARTAN POT50 MG PO (15:45)
[2018-04-16] MEDS ORDERED: SODIUM BICARBI650 MG PO (15:45)
[2018-04-16] MEDS ORDERED: MIRTAZAPINE15 MG PO (15:45)
[2018-04-16] MEDS ORDERED: METOCLOPRAMIDE10 MG PO (15:46)
[2018-04-16] MEDS ORDERED: ANTIVERT PO (15:46)
--- NOTE | 2018-04-16 16:30 | NUR ---
PT OOB RESTING IN RECLINER WITH FAMILY AT BEDSIDE;RESPIRATIONS EVEN AND UNLABORED ON RA;PT DENIES ANY CURRENT PAIN OR NEEDS;TELE MONITORING IN PLACE;PT UNDERSTANDS TRANSFER TO [facility],WILL UPDATE ON ETA FOR TRANSPORT;PT ENCOURAGED TO CALL FOR ASSISTANCE IF NEEDED;FALL PRECAUTIONS IN PLACE WITH CALL LIGHT IN REACH;WILL CONTINUE TO MONITOR
--- NOTE | 2018-04-16 16:54 | NUR ---
The patient is able to transfer and ambulate with SBA in room without LOB. She has poor endurance and requires mod assist for hallway ambulation due to fall risk. She needs assist with open environments. She is a good rehab candidate for fall risk reduction and endurance training
--- NOTE | 2018-04-16 17:20 | NUR ---
PT OOB RESTING IN RECLINER;IV SITE REMOVED WITH CATHETER INTACT;PT UPDATED ON POC AND VERBALIZES UNDERSTANDING;PT DENIES ANY ADDITIONAL NEEDS AND IS ENCOURAGED TO CALL FOR ASSISTANCE IF NEEDED;CALL LIGHT IN REACH;WILL CONTINUE TO MONITOR
--- NOTE | 2018-04-16 18:50 | NUR ---
Discharge instructions given. Patient verbalizes understanding of same. Dis[facility] in stable condition [facility] with [facility]. All belongings sent with pt. Pt discharged via wheelchair to [facility] accompanied by grandson in stable condition.
--- NOTE | 2018-04-16 18:55 | NUR ---
REPORT CALLED TO NICK SALAZAR AT [facility].
== END 2018-04-16 18:48 | DRG 699 ==
LOC: ED 05:41 → ED-I 06:40 → ED 07:06 → ICU 07:07 → MS2 07:07
PROVIDERS: Family Medicine; Internal Medicine Nephrology; ADMIT Internal Medicine; ATTEND Internal Medicine
PROC: 0T9B70Z Drainage of Bladder with Drainage Device, Via Natural or Artificial Opening (ICD-10-PCS; principal; 2018-04-09)
DX: N25.89 Other disorders resulting from impaired renal tubular function (principal); E46 Unspecified protein-calorie malnutrition; Z68.1 Body mass index [BMI] 19.9 or less, adult; R64 Cachexia; E11.65 Type 2 diabetes mellitus with hyperglycemia; B37.49 Other urogenital candidiasis; T38.3X6A Underdosing of insulin and oral hypoglycemic [antidiabetic] drugs, initial encounter; I10 Essential (primary) hypertension; E11.43 Type 2 diabetes mellitus with diabetic autonomic (poly)neuropathy; E11.21 Type 2 diabetes mellitus with diabetic nephropathy; K31.84 Gastroparesis; E78.5 Hyperlipidemia, unspecified; F41.1 Generalized anxiety disorder; F32.9 Major depressive disorder, single episode, unspecified; M19.90 Unspecified osteoarthritis, unspecified site; K21.9 Gastro-esophageal reflux disease without esophagitis; N31.9 Neuromuscular dysfunction of bladder, unspecified; D64.9 Anemia, unspecified; R74.0 Nonspecific elevation of levels of transaminase and lactic acid dehydrogenase [LDH]; K59.00 Constipation, unspecified; R42 Dizziness and giddiness; T45.0X5A Adverse effect of antiallergic and antiemetic drugs, initial encounter; T43.025A Adverse effect of tetracyclic antidepressants, initial encounter; Z79.4 Long term (current) use of insulin; Z91.128 Patient's intentional underdosing of medication regimen for other reason

== ENCOUNTER 2018-05-12 10:05 | Inpatient (IN) | payer OTHER ==
[2018-05-12] VITALS (15 sets, daily range): BP systolic 143–172; BP diastolic 55–86
[~2018-05-12] VITALS: Ht 157.5 cm; Wt 45.0 kg
[~2018-05-12 10:05] MED LIST changes: +ANTIVERT PO; +CARVEDILOL6.25 MG PO; +LOSARTAN POT50 MG PO
[2018-05-12 10:55] LABS: HEMOGLOBIN 11.3 g/dl (12.0-16.0); IMMATURE GRANULOCYTES 0.2 % (0.0-5.0); MEAN CORPUSCULAR HGB 28.9 pG CALC (26.0-32.0); MEAN CORPUSCULAR HGB CONC 30.8 g/L CALC (32.0-36.0); NEUT# 2.36 thou/uL (2.00-7.15); RED BLOOD COUNT 3.91 mill/uL (4.20-5.60); RED CELL DISTRI WIDTH 14.4 % (11.5-15.5)
[2018-05-12 11:01] LABS: HEMATOCRIT 36.7 % (37.0-47.0); MEAN CELL VOLUME 93.9 fL CALC (80.0-100.0)
[2018-05-12 11:12] LABS: BILIRUBIN, TOTAL 0.9 mg/dL (0.0-1.4); BUN 17 mg/dL (7-17); BUN/CREATININE RATIO 34 (12-20 (CALC)); CHLORIDE 102 mmol/l (95-108); CREATININE 0.5 mg/dL (0.5-1.0); GFR > 60 ML/MIN (>=60 (CALC)); GFR FOR AFR.AMER. > 60 ML/MIN (>=60 (CALC)); LIPASE < 10 u/l (23-300); SGOT/AST 34 u/l (14-36); SODIUM 134 mmol/l (137-146)
[2018-05-12 11:13] LABS: ALBUMIN 4.5 g/dL (3.2-5.0); ALKALINE PHOSPHATASE 205 u/l (38-126); ANION GAP 24 (6-22 (CALC)); CARBON DIOXIDE 13 mmol/l (22-30); POTASSIUM 4.9 mmol/l (3.5-5.1); TOTAL PROTEIN 7.6 g/dL (6.3-8.2)
[2018-05-12 11:43] LABS: URINE BILIRUBIN - DIPSTICK NEGATIVE (NEGATIVE); URINE BLOOD DIPSTICK TRACE-INTACT (NEGATIVE); URINE COLOR YELLOW; URINE GLUCOSE - DIPSTICK >=1000 mg/dL (NEGATIVE); URINE KETONE >=80 mg/dL (NEGATIVE); URINE LEUK ESTERASE NEGATIVE (NEGATIVE); URINE NITRITE - DIPSTICK NEGATIVE (Negative); URINE PH 5.5 (4.5-8.0); URINE PROTEIN - DIPSTICK TRACE mg/dL (NEG-TRACE); URINE SPECIFIC GRAVITY 1.025; URINE UROBILINOGEN - DIPSTICK 0.2 E.U./dL (0.2)
[2018-05-12 11:51] LABS: URINE BACTERIA RARE hpf; URINE EPITHELIAL CELLS RARE EPI/hpf (0-FEW); URINE RBC 0-2 RBC/hpf (0-5); URINE WBC 0-2 WBC/hpf (0-5); URINE YEAST MANY hpf
[2018-05-12] MEDS ORDERED: ATORVASTATIN CA40 MG PO (14:41)
[2018-05-12] MEDS ORDERED: ASPIRIN LOW DOS81 M1 PO (14:41)
[2018-05-12] MEDS ORDERED: COREG6.25 MG PO (14:42)
[2018-05-12] MEDS ORDERED: IRON325 M1 PO (14:43)
[2018-05-12] MEDS ORDERED: LEVEMIR FL100 UNIT/M SC (14:44)
[2018-05-12] MEDS ORDERED: LOSARTAN POT50 MG PO (14:45)
[2018-05-12] MEDS ORDERED: METOCLOPRAMIDE H5 MG PO (14:45)
[2018-05-12] MEDS ORDERED: MIRTAZAPINE ODT15 MG PO (14:46)
[2018-05-12] MEDS ORDERED: PANTOPRAZOLE SO40 M1 PO (14:49)
[2018-05-12] MEDS ORDERED: NOVOLOG FL100 UNIT/M SC ×2 (14:58→14:59)
[2018-05-12 20:23] LABS: ANION GAP 21 (6-22 (CALC)); BUN 13 mg/dL (7-17); BUN/CREATININE RATIO 30 (12-20 (CALC)); CARBON DIOXIDE 10 mmol/l (22-30); CHLORIDE 107 mmol/l (95-108); CREATININE 0.4 mg/dL (0.5-1.0); GFR > 60 ML/MIN (>=60 (CALC)); GFR FOR AFR.AMER. > 60 ML/MIN (>=60 (CALC)); POTASSIUM 4.5 mmol/l (3.5-5.1); SODIUM 135 mmol/l (137-146)
[2018-05-13] VITALS (19 sets, daily range): BP systolic 102–181; BP diastolic 58–93
[2018-05-13 00:37] LABS: ANION GAP 17 (6-22 (CALC)); BUN 12 mg/dL (7-17); BUN/CREATININE RATIO 29 (12-20 (CALC)); CHLORIDE 107 mmol/l (95-108); CREATININE 0.4 mg/dL (0.5-1.0); GFR > 60 ML/MIN (>=60 (CALC)); GFR FOR AFR.AMER. > 60 ML/MIN (>=60 (CALC)); POTASSIUM 4.1 mmol/l (3.5-5.1); SODIUM 134 mmol/l (137-146)
[2018-05-13 00:44] LABS: CARBON DIOXIDE 14 mmol/l (22-30)
[2018-05-13 04:22] LABS: HEMATOCRIT 32.4 % (37.0-47.0); HEMOGLOBIN 10.4 g/dl (12.0-16.0); IMMATURE GRANULOCYTES 0.4 % (0.0-5.0); MEAN CELL VOLUME 88.5 fL CALC (80.0-100.0); MEAN CORPUSCULAR HGB 28.4 pG CALC (26.0-32.0); MEAN CORPUSCULAR HGB CONC 32.1 g/L CALC (32.0-36.0); NEUT# 6.19 thou/uL (2.00-7.15); RED BLOOD COUNT 3.66 mill/uL (4.20-5.60); RED CELL DISTRI WIDTH 13.7 % (11.5-15.5)
[2018-05-13 04:46] LABS: ALBUMIN 3.8 g/dL (3.2-5.0); ALKALINE PHOSPHATASE 149 u/l (38-126); AMYLASE 124 u/l (30-110); ANION GAP 17 (6-22 (CALC)); BILIRUBIN, TOTAL 0.6 mg/dL (0.0-1.4); BUN 11 mg/dL (7-17); BUN/CREATININE RATIO 28 (12-20 (CALC)); CARBON DIOXIDE 16 mmol/l (22-30); CHLORIDE 106 mmol/l (95-108); CREATININE 0.4 mg/dL (0.5-1.0); GFR > 60 ML/MIN (>=60 (CALC)); GFR FOR AFR.AMER. > 60 ML/MIN (>=60 (CALC)); LIPASE < 10 u/l (23-300); MAGNESIUM 1.7 mg/dL (1.6-2.3); POTASSIUM 3.8 mmol/l (3.5-5.1); SGOT/AST 31 u/l (14-36); SODIUM 134 mmol/l (137-146); TOTAL PROTEIN 6.9 g/dL (6.3-8.2)
[2018-05-13 09:21] LABS: ANION GAP 14 (6-22 (CALC)); BUN 11 mg/dL (7-17); BUN/CREATININE RATIO 28 (12-20 (CALC)); CARBON DIOXIDE 18 mmol/l (22-30); CHLORIDE 106 mmol/l (95-108); CREATININE 0.4 mg/dL (0.5-1.0); GFR > 60 ML/MIN (>=60 (CALC)); GFR FOR AFR.AMER. > 60 ML/MIN (>=60 (CALC)); POTASSIUM 3.6 mmol/l (3.5-5.1); SODIUM 135 mmol/l (137-146)
[2018-05-14] VITALS (8 sets, daily range): BP systolic 123–188; BP diastolic 68–101
[2018-05-14 05:11] LABS: HEMATOCRIT 31.9 % (37.0-47.0); HEMOGLOBIN 10.6 g/dl (12.0-16.0); IMMATURE GRANULOCYTES 0.4 % (0.0-5.0); MEAN CELL VOLUME 87.9 fL CALC (80.0-100.0); MEAN CORPUSCULAR HGB 29.2 pG CALC (26.0-32.0); MEAN CORPUSCULAR HGB CONC 33.2 g/L CALC (32.0-36.0); NEUT# 2.55 thou/uL (2.00-7.15); RED BLOOD COUNT 3.63 mill/uL (4.20-5.60); RED CELL DISTRI WIDTH 14.3 % (11.5-15.5)
[2018-05-14 05:22] LABS: ALBUMIN 3.1 g/dL (3.2-5.0); ALKALINE PHOSPHATASE 137 u/l (38-126); AMYLASE 39 u/l (30-110); ANION GAP 12 (6-22 (CALC)); BILIRUBIN, TOTAL 0.8 mg/dL (0.0-1.4); BUN 13 mg/dL (7-17); BUN/CREATININE RATIO 36 (12-20 (CALC)); CARBON DIOXIDE 23 mmol/l (22-30); CHLORIDE 109 mmol/l (95-108); CREATININE 0.4 mg/dL (0.5-1.0); GFR > 60 ML/MIN (>=60 (CALC)); GFR FOR AFR.AMER. > 60 ML/MIN (>=60 (CALC)); LIPASE < 10 u/l (23-300); POTASSIUM 3.6 mmol/l (3.5-5.1); SGOT/AST 28 u/l (14-36); SODIUM 139 mmol/l (137-146); TOTAL PROTEIN 5.9 g/dL (6.3-8.2)
== END 2018-05-14 12:01 | disposition left against medical advice (07) | DRG 638 ==
LOC: ED 10:05 → ED-I 11:43 → ED 11:55 → MS2 11:56 → ICU 15:08 → MS2 15:08 → ICU 15:09
PROVIDERS: Family Medicine; Internal Medicine; ADMIT Internal Medicine Nephrology; ATTEND Internal Medicine Nephrology
DX: E11.10 Type 2 diabetes mellitus with ketoacidosis without coma (principal); I48.92 Unspecified atrial flutter; Z68.1 Body mass index [BMI] 19.9 or less, adult; E87.2 Acidosis; E46 Unspecified protein-calorie malnutrition; I10 Essential (primary) hypertension; E78.5 Hyperlipidemia, unspecified; F41.8 Other specified anxiety disorders; M19.90 Unspecified osteoarthritis, unspecified site; E11.42 Type 2 diabetes mellitus with diabetic polyneuropathy; E11.43 Type 2 diabetes mellitus with diabetic autonomic (poly)neuropathy; K31.84 Gastroparesis; K21.9 Gastro-esophageal reflux disease without esophagitis; D64.9 Anemia, unspecified; R80.9 Proteinuria, unspecified; K76.0 Fatty (change of) liver, not elsewhere classified; N25.89 Other disorders resulting from impaired renal tubular function; T38.3X6A Underdosing of insulin and oral hypoglycemic [antidiabetic] drugs, initial encounter; R50.9 Fever, unspecified; Z91.128 Patient's intentional underdosing of medication regimen for other reason
CPT/HCPCS: J1650

== ENCOUNTER 2018-08-15 19:28 | Inpatient (IN) | payer OTHER ==
[~2018-08-15] VITALS: Ht 157.5 cm; Wt 43.1 kg
[~2018-08-15 19:28] MED LIST changes: +ASPIRIN LOW DOS81 M1 PO; +COREG6.25 MG PO; +IRON325 M1 PO; +METOCLOPRAMIDE H5 MG PO; +MIRTAZAPINE ODT15 MG PO; +NOVOLOG FL100 UNIT/M SC
[2018-08-15 20:30] LABS: HEMATOCRIT 40.5 % (37.0-47.0); IMMATURE GRANULOCYTES 3.6 % (0.0-5.0); MEAN CELL VOLUME 92.9 fL CALC (80.0-100.0); MEAN CORPUSCULAR HGB 27.5 pG CALC (26.0-32.0); MEAN CORPUSCULAR HGB CONC 29.6 g/L CALC (32.0-36.0); NEUT# 7.5 thou/uL (2.00-7.15); RED BLOOD COUNT 4.36 mill/uL (4.20-5.60); RED CELL DISTRI WIDTH 13.7 % (11.5-15.5)
[2018-08-15 21:14] LABS: ALKALINE PHOSPHATASE 144 u/l (38-126); BILIRUBIN, TOTAL 0.9 mg/dL (0.0-1.4); BUN 27 mg/dL (7-17); BUN/CREATININE RATIO 30 (12-20 (CALC)); CHLORIDE 103 mmol/l (95-108); CREATININE 0.9 mg/dL (0.5-1.0); GFR > 60 ML/MIN (>=60 (CALC)); GFR FOR AFR.AMER. > 60 ML/MIN (>=60 (CALC)); SGOT/AST 32 u/l (14-36); SODIUM 138 mmol/l (137-146)
[2018-08-15 21:18] LABS: ANION GAP 36 (6-22 (CALC)); POTASSIUM 5.6 mmol/l (3.5-5.1)
[2018-08-15 21:19] LABS: ALBUMIN 5.1 g/dL (3.2-5.0); CARBON DIOXIDE < 5 mmol/l (22-30); TOTAL PROTEIN 8.6 g/dL (6.3-8.2)
[2018-08-15 21:23] LABS: URINE BILIRUBIN - DIPSTICK NEGATIVE (NEGATIVE); URINE BLOOD DIPSTICK TRACE-LYSED (NEGATIVE); URINE COLOR YELLOW; URINE GLUCOSE - DIPSTICK >=1000 mg/dL (NEGATIVE); URINE KETONE >=80 mg/dL (NEGATIVE); URINE LEUK ESTERASE NEGATIVE (NEGATIVE); URINE NITRITE - DIPSTICK NEGATIVE (Negative); URINE PROTEIN - DIPSTICK TRACE mg/dL (NEG-TRACE); URINE SPECIFIC GRAVITY 1.025; URINE UROBILINOGEN - DIPSTICK 0.2 E.U./dL (0.2)
[2018-08-15 21:54] LABS: MYOGLOBIN 17 ng/mL (0 - 62)
[2018-08-15 23:30] VITALS: BP 146/68
[2018-08-15 23:45] VITALS: BP 124/58
[2018-08-16] VITALS (21 sets, daily range): BP systolic 129–194; BP diastolic 59–94
[2018-08-16 01:43] LABS: ANION GAP 22 (6-22 (CALC)); BUN 27 mg/dL (7-17); BUN/CREATININE RATIO 38 (12-20 (CALC)); CARBON DIOXIDE 12 mmol/l (22-30); CHLORIDE 112 mmol/l (95-108); CREATININE 0.7 mg/dL (0.5-1.0); GFR > 60 ML/MIN (>=60 (CALC)); GFR FOR AFR.AMER. > 60 ML/MIN (>=60 (CALC)); MAGNESIUM 2.2 mg/dL (1.6-2.3); POTASSIUM 4.2 mmol/l (3.5-5.1); SODIUM 142 mmol/l (137-146)
[2018-08-16 03:32] LABS: ANION GAP 20 (6-22 (CALC)); BUN 23 mg/dL (7-17); BUN/CREATININE RATIO 40 (12-20 (CALC)); CARBON DIOXIDE 12 mmol/l (22-30); CHLORIDE 116 mmol/l (95-108); CREATININE 0.6 mg/dL (0.5-1.0); GFR > 60 ML/MIN (>=60 (CALC)); GFR FOR AFR.AMER. > 60 ML/MIN (>=60 (CALC)); POTASSIUM 4.4 mmol/l (3.5-5.1); SODIUM 143 mmol/l (137-146)
[2018-08-16 05:39] LABS: ANION GAP 18 (6-22 (CALC)); BUN 21 mg/dL (7-17); BUN/CREATININE RATIO 43 (12-20 (CALC)); CARBON DIOXIDE 14 mmol/l (22-30); CHLORIDE 114 mmol/l (95-108); CREATININE 0.5 mg/dL (0.5-1.0); GFR > 60 ML/MIN (>=60 (CALC)); GFR FOR AFR.AMER. > 60 ML/MIN (>=60 (CALC)); POTASSIUM 4.1 mmol/l (3.5-5.1); SODIUM 142 mmol/l (137-146)
[2018-08-16 07:49] LABS: ANION GAP 17 (6-22 (CALC)); BUN 19 mg/dL (7-17); BUN/CREATININE RATIO 49 (12-20 (CALC)); CARBON DIOXIDE 14 mmol/l (22-30); CHLORIDE 113 mmol/l (95-108); CREATININE 0.4 mg/dL (0.5-1.0); GFR > 60 ML/MIN (>=60 (CALC)); GFR FOR AFR.AMER. > 60 ML/MIN (>=60 (CALC)); POTASSIUM 4.7 mmol/l (3.5-5.1); SODIUM 140 mmol/l (137-146)
[2018-08-16 09:27] LABS: ANION GAP 16 (6-22 (CALC)); BUN 17 mg/dL (7-17); BUN/CREATININE RATIO 43 (12-20 (CALC)); CARBON DIOXIDE 17 mmol/l (22-30); CHLORIDE 110 mmol/l (95-108); CREATININE 0.4 mg/dL (0.5-1.0); GFR > 60 ML/MIN (>=60 (CALC)); GFR FOR AFR.AMER. > 60 ML/MIN (>=60 (CALC)); SODIUM 139 mmol/l (137-146)
[2018-08-16 09:33] LABS: POTASSIUM 3.7 mmol/l (3.5-5.1)
[2018-08-16 11:19] LABS: ANION GAP 13 (6-22 (CALC)); BUN 15 mg/dL (7-17); BUN/CREATININE RATIO 42 (12-20 (CALC)); CARBON DIOXIDE 19 mmol/l (22-30); CHLORIDE 109 mmol/l (95-108); CREATININE 0.4 mg/dL (0.5-1.0); GFR > 60 ML/MIN (>=60 (CALC)); GFR FOR AFR.AMER. > 60 ML/MIN (>=60 (CALC)); POTASSIUM 3.4 mmol/l (3.5-5.1); SODIUM 138 mmol/l (137-146)
[2018-08-16 13:23] LABS: ANION GAP 12 (6-22 (CALC)); BUN 15 mg/dL (7-17); BUN/CREATININE RATIO 45 (12-20 (CALC)); CARBON DIOXIDE 20 mmol/l (22-30); CHLORIDE 109 mmol/l (95-108); CREATININE 0.3 mg/dL (0.5-1.0); GFR > 60 ML/MIN (>=60 (CALC)); GFR FOR AFR.AMER. > 60 ML/MIN (>=60 (CALC)); POTASSIUM 3.4 mmol/l (3.5-5.1); SODIUM 137 mmol/l (137-146)
[2018-08-16 16:11] LABS: ANION GAP 12 (6-22 (CALC)); BUN 15 mg/dL (7-17); BUN/CREATININE RATIO 43 (12-20 (CALC)); CARBON DIOXIDE 20 mmol/l (22-30); CHLORIDE 108 mmol/l (95-108); CREATININE 0.3 mg/dL (0.5-1.0); GFR > 60 ML/MIN (>=60 (CALC)); GFR FOR AFR.AMER. > 60 ML/MIN (>=60 (CALC)); POTASSIUM 3.3 mmol/l (3.5-5.1); SODIUM 137 mmol/l (137-146)
[2018-08-16 17:40] LABS: ANION GAP 12 (6-22 (CALC)); BUN 14 mg/dL (7-17); BUN/CREATININE RATIO 42 (12-20 (CALC)); CARBON DIOXIDE 21 mmol/l (22-30); CHLORIDE 106 mmol/l (95-108); CREATININE 0.3 mg/dL (0.5-1.0); GFR > 60 ML/MIN (>=60 (CALC)); GFR FOR AFR.AMER. > 60 ML/MIN (>=60 (CALC)); POTASSIUM 3.3 mmol/l (3.5-5.1); SODIUM 136 mmol/l (137-146)
== END 2018-08-16 18:10 | disposition home or self-care (01) | DRG 639 ==
LOC: ED 19:28 → ED-I 20:03 → ED 20:03 → ED-I 21:26 → ED 21:48 → ICU 21:49
PROVIDERS: Family Medicine; ADMIT Internal Medicine; ATTEND Internal Medicine
DX: E11.10 Type 2 diabetes mellitus with ketoacidosis without coma (principal); T38.3X6A Underdosing of insulin and oral hypoglycemic [antidiabetic] drugs, initial encounter; I10 Essential (primary) hypertension; E11.43 Type 2 diabetes mellitus with diabetic autonomic (poly)neuropathy; E11.40 Type 2 diabetes mellitus with diabetic neuropathy, unspecified; K31.84 Gastroparesis; F32.9 Major depressive disorder, single episode, unspecified; E78.5 Hyperlipidemia, unspecified; M19.90 Unspecified osteoarthritis, unspecified site; K21.9 Gastro-esophageal reflux disease without esophagitis; Z91.128 Patient's intentional underdosing of medication regimen for other reason; Z79.4 Long term (current) use of insulin

== ENCOUNTER 2018-08-18 12:30 | Emergency (ER) | payer OTHER ==
[~2018-08-18] VITALS: Ht 157.5 cm; Wt 40.0 kg
[2018-08-18 13:05] LABS: HEMATOCRIT 38.3 % (37.0-47.0); HEMOGLOBIN 12.3 g/dl (12.0-16.0); IMMATURE GRANULOCYTES 0.3 % (0.0-5.0); MEAN CORPUSCULAR HGB CONC 32.1 g/L CALC (32.0-36.0); NEUT# 4.9 thou/uL (2.00-7.15); RED BLOOD COUNT 4.4 mill/uL (4.20-5.60); RED CELL DISTRI WIDTH 13.8 % (11.5-15.5)
[2018-08-18 13:20] LABS: ALKALINE PHOSPHATASE 111 u/l (38-126); ANION GAP 20 (6-22 (CALC)); BUN 16 mg/dL (7-17); BUN/CREATININE RATIO 29 (12-20 (CALC)); CARBON DIOXIDE 17 mmol/l (22-30); CHLORIDE 102 mmol/l (95-108); CREATININE 0.6 mg/dL (0.5-1.0); GFR > 60 ML/MIN (>=60 (CALC)); GFR FOR AFR.AMER. > 60 ML/MIN (>=60 (CALC)); POTASSIUM 3.6 mmol/l (3.5-5.1); SGOT/AST 41 u/l (14-36); SODIUM 136 mmol/l (137-146); TOTAL PROTEIN 7.3 g/dL (6.3-8.2)
[2018-08-18 13:23] LABS: BILIRUBIN, TOTAL 1.3 mg/dL (0.0-1.4)
[2018-08-18 14:29] VITALS: BP 187/86
== END 2018-08-18 14:49 | disposition home or self-care (01) ==
LOC: ED 12:30
PROVIDERS: Emergency Medicine
DX: R53.1 Weakness (principal); E11.9 Type 2 diabetes mellitus without complications; I10 Essential (primary) hypertension; R11.0 Nausea

== ENCOUNTER 2018-09-28 12:38 | Emergency (ER) | payer OTHER ==
[~2018-09-28] VITALS: Ht 157.5 cm; Wt 45.0 kg
[2018-09-28 13:12] LABS: HEMATOCRIT 33.8 % (37.0-47.0); HEMOGLOBIN 10.7 g/dl (12.0-16.0); IMMATURE GRANULOCYTES 1.2 % (0.0-5.0); MEAN CELL VOLUME 88.7 fL CALC (80.0-100.0); MEAN CORPUSCULAR HGB 28.1 pG CALC (26.0-32.0); MEAN CORPUSCULAR HGB CONC 31.7 g/L CALC (32.0-36.0); NEUT# 2.07 thou/uL (2.00-7.15); RED BLOOD COUNT 3.81 mill/uL (4.20-5.60); RED CELL DISTRI WIDTH 13.3 % (11.5-15.5)
[2018-09-28 13:26] LABS: URINE BILIRUBIN - DIPSTICK NEGATIVE (NEGATIVE); URINE BLOOD DIPSTICK NEGATIVE (NEGATIVE); URINE COLOR YELLOW; URINE GLUCOSE - DIPSTICK NEGATIVE (NEGATIVE); URINE KETONE NEGATIVE (NEGATIVE); URINE NITRITE - DIPSTICK NEGATIVE (Negative); URINE PH 5.5 (4.5-8.0); URINE PROTEIN - DIPSTICK NEGATIVE (NEG-TRACE); URINE SPECIFIC GRAVITY 1.015; URINE UROBILINOGEN - DIPSTICK 0.2 E.U./dL (0.2)
[2018-09-28 13:28] LABS: ALBUMIN 3.4 g/dL (3.2-5.0); ALKALINE PHOSPHATASE 82 u/l (38-126); ANION GAP 11 (6-22 (CALC)); BILIRUBIN, TOTAL 0.8 mg/dL (0.0-1.4); BUN 10 mg/dL (7-17); BUN/CREATININE RATIO 28 (12-20 (CALC)); CHLORIDE 104 mmol/l (95-108); CREATININE 0.4 mg/dL (0.5-1.0); GFR > 60 ML/MIN (>=60 (CALC)); GFR FOR AFR.AMER. > 60 ML/MIN (>=60 (CALC)); LIPASE < 10 u/l (23-300); POTASSIUM 4.1 mmol/l (3.5-5.1); SGOT/AST 31 u/l (14-36); SODIUM 136 mmol/l (137-146); TOTAL PROTEIN 6.5 g/dL (6.3-8.2)
[2018-09-28 13:30] LABS: URINE LEUK ESTERASE SMALL (NEGATIVE)
[2018-09-28 13:31] LABS: URINE BACTERIA FEW hpf; URINE YEAST MANY hpf
[2018-09-28 13:34] LABS: CARBON DIOXIDE 25 mmol/l (22-30)
[2018-09-28 14:00] LABS: BARBITURATES NEGATIVE (NEGATIVE); COCAINE NEGATIVE (NEGATIVE); METHADONE NEGATIVE (NEGATIVE); OXCYCODONE NEGATIVE (NEGATIVE); TETRAHYDROCANNABIONOL NEGATIVE (NEGATIVE); TRICYLIC ANTIDEPRESSANTS NEGATIVE (NEGATIVE)
[2018-09-28] MEDS ORDERED: ENALAPRIL10 MG PO (14:19)
[2018-09-28] MEDS ORDERED: SIMVASTATIN10 MG PO (14:19)
[2018-09-28] MEDS ORDERED: LANTUS100 UNIT/M SC ×3 (14:33→14:59)
[2018-09-28] MEDS ORDERED: KEFLEX500 M1 PO (14:37)
[2018-09-28] MEDS ORDERED: DIFLUCAN150 MG PO (14:37)
[2018-09-28 14:41] VITALS: BP 145/78
== END 2018-09-28 14:58 | disposition home or self-care (01) ==
LOC: ED 12:38
PROVIDERS: Family Medicine
DX: B37.49 Other urogenital candidiasis (principal); E11.9 Type 2 diabetes mellitus without complications; I10 Essential (primary) hypertension; Z79.4 Long term (current) use of insulin; R53.1 Weakness; R42 Dizziness and giddiness; R10.84 Generalized abdominal pain

== ENCOUNTER 2018-10-23 16:46 | Emergency (ER) | payer OTHER ==
[~2018-10-23] VITALS: Ht 157.5 cm; Wt 45.0 kg
[~2018-10-23 16:46] MED LIST changes: +DIFLUCAN150 MG PO; +ENALAPRIL10 MG PO; +KEFLEX500 M1 PO; +LANTUS100 UNIT/M SC; +SIMVASTATIN10 MG PO
[2018-10-23 17:24] LABS: HEMATOCRIT 32.9 % (37.0-47.0); HEMOGLOBIN 10.8 g/dl (12.0-16.0); IMMATURE GRANULOCYTES 0.7 % (0.0-5.0); MEAN CELL VOLUME 87.3 fL CALC (80.0-100.0); MEAN CORPUSCULAR HGB 28.6 pG CALC (26.0-32.0); MEAN CORPUSCULAR HGB CONC 32.8 g/L CALC (32.0-36.0); RED BLOOD COUNT 3.77 mill/uL (4.20-5.60); RED CELL DISTRI WIDTH 13.5 % (11.5-15.5)
[2018-10-23 17:32] LABS: ALKALINE PHOSPHATASE 98 u/l (38-126); ANION GAP 13 (6-22 (CALC)); BILIRUBIN, TOTAL 0.8 mg/dL (0.0-1.4); BUN 10 mg/dL (7-17); BUN/CREATININE RATIO 35 (12-20 (CALC)); CARBON DIOXIDE 27 mmol/l (22-30); CHLORIDE 99 mmol/l (95-108); CREATININE 0.3 mg/dL (0.5-1.0); GFR > 60 ML/MIN (>=60 (CALC)); GFR FOR AFR.AMER. > 60 ML/MIN (>=60 (CALC)); LIPASE < 10 u/l (23-300); POTASSIUM 3.6 mmol/l (3.5-5.1); SGOT/AST 33 u/l (14-36); SODIUM 135 mmol/l (137-146); TOTAL PROTEIN 7.6 g/dL (6.3-8.2)
[2018-10-23 17:33] LABS: ALBUMIN 4.5 g/dL (3.2-5.0)
[2018-10-23 17:52] LABS: URINE BILIRUBIN - DIPSTICK NEGATIVE (NEGATIVE); URINE BLOOD DIPSTICK TRACE-INTACT (NEGATIVE); URINE COLOR YELLOW; URINE GLUCOSE - DIPSTICK 500 mg/dL (NEGATIVE); URINE KETONE NEGATIVE (NEGATIVE); URINE LEUK ESTERASE SMALL (NEGATIVE); URINE NITRITE - DIPSTICK NEGATIVE (Negative); URINE PH 7.5 (4.5-8.0); URINE PROTEIN - DIPSTICK 30 mg/dL (NEG-TRACE); URINE SPECIFIC GRAVITY 1.015; URINE UROBILINOGEN - DIPSTICK 0.2 E.U./dL (0.2)
[2018-10-23 17:53] LABS: BARBITURATES NEGATIVE (NEGATIVE); COCAINE NEGATIVE (NEGATIVE); METHADONE NEGATIVE (NEGATIVE); OXCYCODONE NEGATIVE (NEGATIVE); TETRAHYDROCANNABIONOL NEGATIVE (NEGATIVE); TRICYLIC ANTIDEPRESSANTS NEGATIVE (NEGATIVE)
[2018-10-23 18:05] LABS: URINE SQUAMOUS EPITHELIAL CELL FEW EPI/hpf (0-FEW); URINE WBC TNTC WBC/hpf (0-5)
[2018-10-23 18:06] LABS: URINE BACTERIA FEW hpf
[2018-10-23] MEDS ORDERED: ZOFRAN4 MG/TAB PO (19:21)
[2018-10-23] MEDS ORDERED: KEFLEX500 M1 PO (19:21)
[2018-10-23 19:43] VITALS: BP 201/97
== END 2018-10-23 20:19 | disposition home or self-care (01) ==
LOC: ED 16:46
PROVIDERS: Emergency Medicine
DX: N39.0 Urinary tract infection, site not specified (principal); R11.2 Nausea with vomiting, unspecified; I10 Essential (primary) hypertension; E11.9 Type 2 diabetes mellitus without complications; Z79.4 Long term (current) use of insulin; R10.84 Generalized abdominal pain
CPT/HCPCS: Q9967

== ENCOUNTER 2018-11-16 14:13 | Emergency (ER) | payer OTHER ==
[~2018-11-16] VITALS: Ht 157.5 cm; Wt 38.6 kg
[~2018-11-16 14:13] MED LIST changes: +AMLODIPINE BESYL5 MG PO; +LANTUS SOL100 UNIT/M SC
[2018-11-16 14:53] LABS: HEMATOCRIT 32.3 % (37.0-47.0); HEMOGLOBIN 10.1 g/dl (12.0-16.0); IMMATURE GRANULOCYTES 0.6 % (0.0-5.0); MEAN CELL VOLUME 88.5 fL CALC (80.0-100.0); MEAN CORPUSCULAR HGB 27.7 pG CALC (26.0-32.0); MEAN CORPUSCULAR HGB CONC 31.3 g/L CALC (32.0-36.0); NEUT# 2.07 thou/uL (2.00-7.15); RED BLOOD COUNT 3.65 mill/uL (4.20-5.60); RED CELL DISTRI WIDTH 13.1 % (11.5-15.5)
[2018-11-16 15:10] LABS: ALBUMIN 4.2 g/dL (3.2-5.0); ALKALINE PHOSPHATASE 90 u/l (38-126); ANION GAP 20 (6-22 (CALC)); BILIRUBIN, TOTAL 0.7 mg/dL (0.0-1.4); BUN 20 mg/dL (7-17); BUN/CREATININE RATIO 48 (12-20 (CALC)); CARBON DIOXIDE 22 mmol/l (22-30); CHLORIDE 101 mmol/l (95-108); CREATININE 0.4 mg/dL (0.5-1.0); GFR > 60 ML/MIN (>=60 (CALC)); GFR FOR AFR.AMER. > 60 ML/MIN (>=60 (CALC)); LIPASE < 10 u/l (23-300); SGOT/AST 24 u/l (14-36); SODIUM 139 mmol/l (137-146); TOTAL PROTEIN 7.5 g/dL (6.3-8.2)
[2018-11-16 15:12] LABS: POTASSIUM 3.5 mmol/l (3.5-5.1)
[2018-11-16 16:22] LABS: URINE BILIRUBIN - DIPSTICK NEGATIVE (NEGATIVE); URINE BLOOD DIPSTICK TRACE-INTACT (NEGATIVE); URINE COLOR YELLOW; URINE GLUCOSE - DIPSTICK >=1000 mg/dL (NEGATIVE); URINE KETONE >=80 mg/dL (NEGATIVE); URINE LEUK ESTERASE NEGATIVE (Negative); URINE NITRITE - DIPSTICK NEGATIVE (Negative); URINE PROTEIN - DIPSTICK 30 mg/dL (NEG-TRACE); URINE SPECIFIC GRAVITY 1.025; URINE UROBILINOGEN - DIPSTICK 0.2 E.U./dL (0.2)
[2018-11-16 16:27] LABS: BARBITURATES NEGATIVE (NEGATIVE); COCAINE NEGATIVE (NEGATIVE); METHADONE NEGATIVE (NEGATIVE); OXCYCODONE NEGATIVE (NEGATIVE); TETRAHYDROCANNABIONOL NEGATIVE (NEGATIVE); TRICYLIC ANTIDEPRESSANTS NEGATIVE (NEGATIVE); URINE CLARITY CLOUDY
[2018-11-16 16:29] LABS: URINE SQUAMOUS EPITHELIAL CELL FEW EPI/hpf (0-FEW); URINE YEAST MANY hpf
[2018-11-16] MEDS ORDERED: MIRALAX3350 N1 PO (16:43)
[2018-11-16] MEDS ORDERED: ZOFRAN4 M1 PO (16:45)
[2018-11-16 17:22] VITALS: BP 113/54
== END 2018-11-16 17:22 | disposition home or self-care (01) ==
LOC: ED 14:13
PROVIDERS: Emergency Medicine
DX: R11.10 Vomiting, unspecified (principal); I10 Essential (primary) hypertension; E11.9 Type 2 diabetes mellitus without complications; Z79.4 Long term (current) use of insulin

== ENCOUNTER 2018-12-19 19:09 | Inpatient (IN) | payer OTHER ==
[~2018-12-19] VITALS: Ht 157.5 cm; Wt 36.0 kg
[~2018-12-19 19:09] MED LIST changes: +MIRALAX3350 N1 PO; +ZOFRAN4 M1 PO
[2018-12-19 20:26] LABS: HEMATOCRIT 35.6 % (37.0-47.0); HEMOGLOBIN 10.6 g/dl (12.0-16.0); IMMATURE GRANULOCYTES 0.3 % (0.0-5.0); MEAN CELL VOLUME 93.4 fL CALC (80.0-100.0); MEAN CORPUSCULAR HGB 27.8 pG CALC (26.0-32.0); MEAN CORPUSCULAR HGB CONC 29.8 g/L CALC (32.0-36.0); NEUT# 2.55 thou/uL (2.00-7.15); RED BLOOD COUNT 3.81 mill/uL (4.20-5.60)
[2018-12-19 20:33] LABS: ALBUMIN 4.7 g/dL (3.2-5.0); ALKALINE PHOSPHATASE 97 u/l (38-126); BUN 31 mg/dL (7-17); BUN/CREATININE RATIO 29 (12-20 (CALC)); CHLORIDE 96 mmol/l (95-108); CREATININE 1.1 mg/dL (0.5-1.0); GFR 51 ML/MIN (>=60 (CALC)); GFR FOR AFR.AMER. > 60 ML/MIN (>=60 (CALC)); SGOT/AST 26 u/l (14-36); SODIUM 134 mmol/l (137-146); TOTAL PROTEIN 7.6 g/dL (6.3-8.2)
[2018-12-19 20:44] LABS: ANION GAP 38 (6-22 (CALC)); CARBON DIOXIDE 5 mmol/l (22-30); POTASSIUM 5.3 mmol/l (3.5-5.1)
[2018-12-19 20:45] LABS: BILIRUBIN, TOTAL 1.1 mg/dL (0.0-1.4)
[2018-12-19 20:47] LABS: MYOGLOBIN 33 ng/mL (0 - 62)
[2018-12-19 22:54] LABS: CREATININE 1.2 mg/dL (0.5-1.0); POTASSIUM 4.4 mmol/l (3.5-5.1)
[2018-12-19 23:45] VITALS: BP 142/74
[2018-12-20] VITALS (30 sets, daily range): BP systolic 72–153; BP diastolic 48–82
[2018-12-20 02:21] LABS: BUN 29 mg/dL (7-17); BUN/CREATININE RATIO 36 (12-20 (CALC)); CHLORIDE 108 mmol/l (95-108); CREATININE 0.8 mg/dL (0.5-1.0); GFR > 60 ML/MIN (>=60 (CALC)); GFR FOR AFR.AMER. > 60 ML/MIN (>=60 (CALC)); SODIUM 137 mmol/l (137-146)
[2018-12-20 02:24] LABS: ANION GAP 22 (6-22 (CALC)); CARBON DIOXIDE 10 mmol/l (22-30); POTASSIUM 3.2 mmol/l (3.5-5.1)
[2018-12-20 06:00] LABS: URINE BILIRUBIN - DIPSTICK NEGATIVE (NEGATIVE); URINE BLOOD DIPSTICK TRACE-INTACT (NEGATIVE); URINE COLOR YELLOW; URINE GLUCOSE - DIPSTICK >=1000 mg/dL (NEGATIVE); URINE KETONE >=80 mg/dL (NEGATIVE); URINE NITRITE - DIPSTICK NEGATIVE (Negative); URINE PH 5.5 (4.5-8.0); URINE PROTEIN - DIPSTICK TRACE mg/dL (NEG-TRACE); URINE SPECIFIC GRAVITY >=1.030; URINE UROBILINOGEN - DIPSTICK 0.2 E.U./dL (0.2)
[2018-12-20 06:00] LABS: IMMATURE GRANULOCYTES 0.2 % (0.0-5.0); MEAN CORPUSCULAR HGB 28.2 pG CALC (26.0-32.0); MEAN CORPUSCULAR HGB CONC 32.4 g/L CALC (32.0-36.0); NEUT# 2.76 thou/uL (2.00-7.15); RED BLOOD COUNT 3.01 mill/uL (4.20-5.60)
[2018-12-20 06:02] LABS: HEMATOCRIT 26.2 % (37.0-47.0); HEMOGLOBIN 8.5 g/dl (12.0-16.0)
[2018-12-20 06:06] LABS: URINE LEUK ESTERASE SMALL (NEGATIVE)
[2018-12-20 06:08] LABS: URINE YEAST MANY hpf
[2018-12-20 06:17] LABS: BUN 29 mg/dL (7-17); BUN/CREATININE RATIO 41 (12-20 (CALC)); CHLORIDE 109 mmol/l (95-108); CREATININE 0.7 mg/dL (0.5-1.0); GFR > 60 ML/MIN (>=60 (CALC)); GFR FOR AFR.AMER. > 60 ML/MIN (>=60 (CALC)); POTASSIUM 3.4 mmol/l (3.5-5.1); SODIUM 136 mmol/l (137-146)
[2018-12-20 06:19] LABS: ANION GAP 14 (6-22 (CALC)); CARBON DIOXIDE 16 mmol/l (22-30)
[2018-12-20 10:07] LABS: ANION GAP 12 (6-22 (CALC)); BUN 28 mg/dL (7-17); BUN/CREATININE RATIO 44 (12-20 (CALC)); CARBON DIOXIDE 19 mmol/l (22-30); CHLORIDE 108 mmol/l (95-108); CREATININE 0.6 mg/dL (0.5-1.0); GFR > 60 ML/MIN (>=60 (CALC)); GFR FOR AFR.AMER. > 60 ML/MIN (>=60 (CALC)); POTASSIUM 4.1 mmol/l (3.5-5.1); SODIUM 135 mmol/l (137-146)
[2018-12-20 14:37] LABS: ANION GAP 10 (6-22 (CALC)); BUN 26 mg/dL (7-17); BUN/CREATININE RATIO 45 (12-20 (CALC)); CARBON DIOXIDE 21 mmol/l (22-30); CHLORIDE 107 mmol/l (95-108); CREATININE 0.6 mg/dL (0.5-1.0); GFR > 60 ML/MIN (>=60 (CALC)); GFR FOR AFR.AMER. > 60 ML/MIN (>=60 (CALC)); POTASSIUM 3.7 mmol/l (3.5-5.1); SODIUM 135 mmol/l (137-146)
[2018-12-20 17:35] LABS: ANION GAP 6 (6-22 (CALC)); BUN 25 mg/dL (7-17); BUN/CREATININE RATIO 49 (12-20 (CALC)); CARBON DIOXIDE 23 mmol/l (22-30); CHLORIDE 108 mmol/l (95-108); CREATININE 0.5 mg/dL (0.5-1.0); GFR > 60 ML/MIN (>=60 (CALC)); GFR FOR AFR.AMER. > 60 ML/MIN (>=60 (CALC)); POTASSIUM 3.5 mmol/l (3.5-5.1); SODIUM 133 mmol/l (137-146)
[2018-12-20 21:22] LABS: ANION GAP 10 (6-22 (CALC)); BUN 24 mg/dL (7-17); BUN/CREATININE RATIO 47 (12-20 (CALC)); CARBON DIOXIDE 21 mmol/l (22-30); CHLORIDE 109 mmol/l (95-108); CREATININE 0.5 mg/dL (0.5-1.0); GFR > 60 ML/MIN (>=60 (CALC)); GFR FOR AFR.AMER. > 60 ML/MIN (>=60 (CALC)); POTASSIUM 3.6 mmol/l (3.5-5.1); SODIUM 136 mmol/l (137-146)
[2018-12-21] VITALS (13 sets, daily range): BP systolic 82–168; BP diastolic 43–90
[2018-12-21 02:17] LABS: ANION GAP 12 (6-22 (CALC)); BUN 25 mg/dL (7-17); BUN/CREATININE RATIO 51 (12-20 (CALC)); CARBON DIOXIDE 20 mmol/l (22-30); CHLORIDE 108 mmol/l (95-108); CREATININE 0.5 mg/dL (0.5-1.0); GFR > 60 ML/MIN (>=60 (CALC)); GFR FOR AFR.AMER. > 60 ML/MIN (>=60 (CALC)); POTASSIUM 3.5 mmol/l (3.5-5.1); SODIUM 137 mmol/l (137-146)
[2018-12-21 13:19] LABS: IMMATURE GRANULOCYTES 0.4 % (0.0-5.0); MEAN CELL VOLUME 84.4 fL CALC (80.0-100.0); MEAN CORPUSCULAR HGB 27.7 pG CALC (26.0-32.0); MEAN CORPUSCULAR HGB CONC 32.7 g/L CALC (32.0-36.0); NEUT# 1.82 thou/uL (2.00-7.15); RED BLOOD COUNT 4.05 mill/uL (4.20-5.60); RED CELL DISTRI WIDTH 13.7 % (11.5-15.5)
[2018-12-21 13:21] LABS: HEMATOCRIT 34.2 % (37.0-47.0); HEMOGLOBIN 11.2 g/dl (12.0-16.0)
[2018-12-21 13:34] LABS: ANION GAP 11 (6-22 (CALC)); BUN 24 mg/dL (7-17); BUN/CREATININE RATIO 55 (12-20 (CALC)); CARBON DIOXIDE 19 mmol/l (22-30); CHLORIDE 108 mmol/l (95-108); CREATININE 0.4 mg/dL (0.5-1.0); GFR > 60 ML/MIN (>=60 (CALC)); GFR FOR AFR.AMER. > 60 ML/MIN (>=60 (CALC)); MAGNESIUM 1.8 mg/dL (1.6-2.3); POTASSIUM 3.7 mmol/l (3.5-5.1); SODIUM 134 mmol/l (137-146)
[2018-12-21] MEDS ORDERED: LANTUS SOL100 UNIT/M SC (14:42)
[2018-12-21] MEDS ORDERED: REGLAN10 MG PO (14:43)
[2018-12-21] MEDS ORDERED: AMLODIPINE BESYL5 MG PO (14:44)
[2018-12-21] MEDS ORDERED: LISINOPRIL20 MG PO (14:44)
[2018-12-21] MEDS ORDERED: MIRALAX3350 NF PO (14:49)
[2018-12-21] MEDS ORDERED: BLOOD PRESSURE MED (14:51)
[2018-12-22] VITALS (14 sets, daily range): BP systolic 98–179; BP diastolic 64–992
[2018-12-22 05:37] LABS: HEMOGLOBIN 9.3 g/dl (12.0-16.0); IMMATURE GRANULOCYTES 0.8 % (0.0-5.0); MEAN CELL VOLUME 84.8 fL CALC (80.0-100.0); MEAN CORPUSCULAR HGB 28.3 pG CALC (26.0-32.0); MEAN CORPUSCULAR HGB CONC 33.3 g/L CALC (32.0-36.0); NEUT# 1.25 thou/uL (2.00-7.15); RED BLOOD COUNT 3.29 mill/uL (4.20-5.60); RED CELL DISTRI WIDTH 14.1 % (11.5-15.5)
[2018-12-22 05:45] LABS: BUN 23 mg/dL (7-17); BUN/CREATININE RATIO 42 (12-20 (CALC)); CHLORIDE 109 mmol/l (95-108); CREATININE 0.6 mg/dL (0.5-1.0); GFR > 60 ML/MIN (>=60 (CALC)); GFR FOR AFR.AMER. > 60 ML/MIN (>=60 (CALC)); MAGNESIUM 1.9 mg/dL (1.6-2.3); POTASSIUM 4.4 mmol/l (3.5-5.1); SODIUM 137 mmol/l (137-146)
[2018-12-22 05:49] LABS: ANION GAP 7 (6-22 (CALC)); CARBON DIOXIDE 25 mmol/l (22-30)
[2018-12-22 05:52] LABS: HEMATOCRIT 27.9 % (37.0-47.0)
[2018-12-23] VITALS: BP 164/82
[2018-12-23 02:00] VITALS: BP 135/69
[2018-12-23 04:00] VITALS: BP 98/55
[2018-12-23 05:17] LABS: HEMATOCRIT 26.4 % (37.0-47.0); HEMOGLOBIN 8.4 g/dl (12.0-16.0); MEAN CELL VOLUME 86.3 fL CALC (80.0-100.0); MEAN CORPUSCULAR HGB 27.5 pG CALC (26.0-32.0); MEAN CORPUSCULAR HGB CONC 31.8 g/L CALC (32.0-36.0); RED BLOOD COUNT 3.06 mill/uL (4.20-5.60); RED CELL DISTRI WIDTH 14.3 % (11.5-15.5)
[2018-12-23 05:31] LABS: ANION GAP 8 (6-22 (CALC)); BUN 23 mg/dL (7-17); BUN/CREATININE RATIO 47 (12-20 (CALC)); CARBON DIOXIDE 27 mmol/l (22-30); CHLORIDE 105 mmol/l (95-108); CREATININE 0.5 mg/dL (0.5-1.0); GFR > 60 ML/MIN (>=60 (CALC)); GFR FOR AFR.AMER. > 60 ML/MIN (>=60 (CALC)); SODIUM 136 mmol/l (137-146)
[2018-12-23 06:00] VITALS: BP 169/90
[2018-12-23] MEDS ORDERED: LANTUS SOL100 UNIT/M SC (07:58)
[2018-12-23 08:00] VITALS: BP 196/108
[2018-12-23] MEDS ORDERED: LANTUS100 UNIT/M SC (08:06)
[2018-12-23 10:15] VITALS: BP 136/64
== END 2018-12-23 10:55 | disposition home or self-care (01) | DRG 637 ==
LOC: ED 19:09 → ED-I 20:35 → ED 21:35 → ICU 21:36 → ED-I 21:36 → ICU 22:39
PROVIDERS: Family Medicine; Internal Medicine; ADMIT Internal Medicine; ATTEND Internal Medicine
PROC: 05H533Z Insertion of Infusion Device into Right Subclavian Vein, Percutaneous Approach (ICD-10-PCS; principal; 2018-12-21)
DX: E11.10 Type 2 diabetes mellitus with ketoacidosis without coma (principal); E43 Unspecified severe protein-calorie malnutrition; Z68.1 Body mass index [BMI] 19.9 or less, adult; E87.3 Alkalosis; E11.649 Type 2 diabetes mellitus with hypoglycemia without coma; D63.8 Anemia in other chronic diseases classified elsewhere; I10 Essential (primary) hypertension; E11.40 Type 2 diabetes mellitus with diabetic neuropathy, unspecified; E11.43 Type 2 diabetes mellitus with diabetic autonomic (poly)neuropathy; K31.84 Gastroparesis; E78.5 Hyperlipidemia, unspecified; F32.9 Major depressive disorder, single episode, unspecified; M19.90 Unspecified osteoarthritis, unspecified site; K21.9 Gastro-esophageal reflux disease without esophagitis; R68.0 Hypothermia, not associated with low environmental temperature; T38.3X6A Underdosing of insulin and oral hypoglycemic [antidiabetic] drugs, initial encounter; Z91.128 Patient's intentional underdosing of medication regimen for other reason; Z79.4 Long term (current) use of insulin; Z63.8 Other specified problems related to primary support group
CPT/HCPCS: J3475

== ENCOUNTER 2018-12-31 09:20 | Observation (INO) | payer OTHER ==
[~2018-12-31] VITALS: Ht 157.5 cm; Wt 44.0 kg
[2018-12-31] VITALS (11 sets, daily range): BP systolic 110–166; BP diastolic 61–93
[~2018-12-31 09:20] MED LIST changes: +BLOOD PRESSURE MED
[2018-12-31 10:00] LABS: URINE BILIRUBIN - DIPSTICK NEGATIVE (NEGATIVE); URINE BLOOD DIPSTICK NEGATIVE (NEGATIVE); URINE COLOR YELLOW; URINE GLUCOSE - DIPSTICK >=1000 mg/dL (NEGATIVE); URINE KETONE NEGATIVE (NEGATIVE); URINE NITRITE - DIPSTICK NEGATIVE (Negative); URINE PH 7.5 (4.5-8.0); URINE PROTEIN - DIPSTICK NEGATIVE (NEG-TRACE); URINE SPECIFIC GRAVITY 1.015; URINE UROBILINOGEN - DIPSTICK 0.2 E.U./dL (0.2)
[2018-12-31 10:03] LABS: URINE LEUK ESTERASE SMALL (NEGATIVE)
[2018-12-31 10:06] LABS: URINE BACTERIA MODERATE hpf; URINE EPITHELIAL CELLS MANY EPI/hpf (0-FEW)
[2018-12-31 10:19] LABS: HEMATOCRIT 30.6 % (37.0-47.0); HEMOGLOBIN 9.8 g/dl (12.0-16.0); IMMATURE GRANULOCYTES 0.4 % (0.0-5.0); MEAN CELL VOLUME 87.7 fL CALC (80.0-100.0); MEAN CORPUSCULAR HGB 28.1 pG CALC (26.0-32.0); NEUT# 1.64 thou/uL (2.00-7.15); RED BLOOD COUNT 3.49 mill/uL (4.20-5.60); RED CELL DISTRI WIDTH 14.7 % (11.5-15.5)
[2018-12-31 10:37] LABS: ALBUMIN 3.9 g/dL (3.2-5.0); ALKALINE PHOSPHATASE 78 u/l (38-126); ANION GAP 10 (6-22 (CALC)); BILIRUBIN, TOTAL 0.4 mg/dL (0.0-1.4); BUN 15 mg/dL (7-17); BUN/CREATININE RATIO 54 (12-20 (CALC)); CARBON DIOXIDE 31 mmol/l (22-30); CHLORIDE 98 mmol/l (95-108); CREATININE 0.3 mg/dL (0.5-1.0); GFR > 60 ML/MIN (>=60 (CALC)); GFR FOR AFR.AMER. > 60 ML/MIN (>=60 (CALC)); LIPASE < 10 u/l (23-300); POTASSIUM 3.8 mmol/l (3.5-5.1); SGOT/AST 25 u/l (14-36); SODIUM 136 mmol/l (137-146)
[2019-01-01] VITALS (9 sets, daily range): BP systolic 137–174; BP diastolic 70–94
[2019-01-01] MEDS ORDERED: LISINOPRIL5 MG PO (08:46)
[2019-01-01] MEDS ORDERED: LANTUS100 UNIT/M SC (08:46)
[2019-01-02] MEDS ORDERED: PROCHLORPER25 MG RE
== END 2019-01-01 11:10 | disposition home or self-care (01) ==
LOC: ED 09:20 → ED-I 10:13 → ED 11:21 → ICU 11:22
PROVIDERS: Family Medicine; ADMIT Internal Medicine; ATTEND Internal Medicine
DX: E11.649 Type 2 diabetes mellitus with hypoglycemia without coma (principal); I16.0 Hypertensive urgency; J95.811 Postprocedural pneumothorax; I10 Essential (primary) hypertension; R68.0 Hypothermia, not associated with low environmental temperature; E78.5 Hyperlipidemia, unspecified; F32.9 Major depressive disorder, single episode, unspecified; E11.40 Type 2 diabetes mellitus with diabetic neuropathy, unspecified; R64 Cachexia; R63.6 Underweight; M19.90 Unspecified osteoarthritis, unspecified site; Z68.1 Body mass index [BMI] 19.9 or less, adult; Y83.8 Other surgical procedures as the cause of abnormal reaction of the patient, or of later complication, without mention of misadventure at the time of the procedure; Z79.4 Long term (current) use of insulin

== ENCOUNTER 2019-01-01 18:53 | Emergency (ER) | payer OTHER ==
[~2019-01-01] VITALS: Ht 157.5 cm; Wt 45.0 kg
[~2019-01-01 18:53] MED LIST changes: +LISINOPRIL5 MG PO
[2019-01-01 19:44] LABS: HEMATOCRIT 29.3 % (37.0-47.0); HEMOGLOBIN 9.3 g/dl (12.0-16.0); IMMATURE GRANULOCYTES 0.3 % (0.0-5.0); MEAN CELL VOLUME 86.9 fL CALC (80.0-100.0); MEAN CORPUSCULAR HGB 27.6 pG CALC (26.0-32.0); MEAN CORPUSCULAR HGB CONC 31.7 g/L CALC (32.0-36.0); NEUT# 2.82 thou/uL (2.00-7.15); RED BLOOD COUNT 3.37 mill/uL (4.20-5.60); RED CELL DISTRI WIDTH 15.1 % (11.5-15.5)
[2019-01-01 20:02] LABS: ALBUMIN 3.6 g/dL (3.2-5.0); ALKALINE PHOSPHATASE 75 u/l (38-126); AMYLASE 122 u/l (30-110); ANION GAP 12 (6-22 (CALC)); BILIRUBIN, TOTAL 0.5 mg/dL (0.0-1.4); BUN 10 mg/dL (7-17); BUN/CREATININE RATIO 32 (12-20 (CALC)); CARBON DIOXIDE 26 mmol/l (22-30); CHLORIDE 101 mmol/l (95-108); CREATININE 0.3 mg/dL (0.5-1.0); GFR > 60 ML/MIN (>=60 (CALC)); GFR FOR AFR.AMER. > 60 ML/MIN (>=60 (CALC)); LIPASE < 10 u/l (23-300); SGOT/AST 26 u/l (14-36); SODIUM 136 mmol/l (137-146); TOTAL PROTEIN 6.7 g/dL (6.3-8.2)
[2019-01-02] MEDS ORDERED: PROCHLORPER25 MG RE
[2019-01-02 02:13] VITALS: BP 151/81
== END 2019-01-02 02:14 | disposition home or self-care (01) ==
LOC: ED 18:53
PROVIDERS: Family Medicine
DX: R11.10 Vomiting, unspecified (principal); E11.9 Type 2 diabetes mellitus without complications; I10 Essential (primary) hypertension; Z79.4 Long term (current) use of insulin